=== PATIENT | male | born 1935 | race Caucasian/White ===

== ENCOUNTER → 2016-05-19 08:44 | Outpatient (CLI) | payer MEDICARE, BC ==
[2015-12-30 12:50] VITALS: BMI 21.2
[~2016-05-19 08:44] MED LIST: BENTYL 20 MG TA20 MG PO; BENZONATATE200 MG PO; BROVANA15 MCG/2 M INH; DALIRESP500 MCG PO; DEXILANT60 MG PO; FLUTICASONE PRO16 GM NASAL; IPRAT-ALBUT 0.5-3 ML UPD; KLONOPIN0.5 MG PO; LACTINEX GRANUL1 PCK PO; LASIX20 MG PO; LEVAQUIN500 MG PO; LISINOPRIL10 MG PO; LYRICA50 MG PO; MAG-OX 400 MG400 MG PO; MEDROL DOSE PACK4 MG PO; METOPROLOL TART50 MG PO; MUCINEX DM ER1 EAC1 PO; NEURONTIN 400400 MG PO; NEURONTIN800 MG PO; NEXIUM20 MG PO; NITROSTAT0.4 MG SL; NORVASC5 MG PO; PLAVIX75 MG PO; POTASSIUM CHLO10 ME1 PO; PREDNISONE20 MG PO; PRILOSEC20 MG PO; PULMICORT0.5 MG/21 UPD; SALINE NASAL SP45 ML NS; SINGULAIR10 MG PO; STERAPRED DS 1210 MG PO; SYMBICORT 16010.2 GM INH; TESSALON PERLE100 MG PO; TOPROL XL25 MG PO; TUMS500 MG PO; VENTOLIN HFA18 GM INH; VITAMIN D250000 UNIT PO; VITAMIN D5000 UNIT PO; ZYRTEC10 MG PO
== END | disposition home or self-care (01) ==
LOC: D.RT 08:44
DX: J44.9 Chronic obstructive pulmonary disease, unspecified (principal)

== ENCOUNTER → 2016-06-08 19:14 | Outpatient (CLI) | payer MEDICARE, BC ==
[2015-12-30 12:50] VITALS: BMI 21.2
[~2016-06-08 19:14] MED LIST changes: +FLORAJEN3 CAPS460 MG PO; +LEVAQUIN750 MG PO
== END | disposition home or self-care (01) ==
LOC: D.SLEEP 19:14
DX: R40.0 Somnolence (principal); G47.33 Obstructive sleep apnea (adult) (pediatric)

== ENCOUNTER → 2016-07-20 12:25 | Outpatient (CLI) | payer MEDICARE, BC ==
[2015-12-30 12:50] VITALS: BMI 21.2
== END | disposition home or self-care (01) ==
LOC: D.RAD 12:25
DX: T17.928A Food in respiratory tract, part unspecified causing other injury, initial encounter (principal)

== ENCOUNTER 2016-07-31 01:36 | Inpatient (IN) | payer MEDICARE, BC ==
[~2016-07-31] VITALS: Ht 177.8 cm; Wt 70.3 kg
[~2016-07-31 01:36] MED LIST changes: -FLORAJEN3 CAPS460 MG PO; -LEVAQUIN750 MG PO
[2016-07-31 02:39] LABS: BASOPHILS 0.1 % (0.0-2.0); EOSINOPHILS 0.2 % (0-7); HEMATOCRIT 37.2 % (42.0-54.0); HEMOGLOBIN 12.2 g/dL (13.5-17.5); IMMATURE GRANULOCYTES 0.3 % (0-5); LYMPHOCYTES 2.6 % (15-50); MCHC 32.8 g/dL (31.0-37.0); MCV 88.4 fL (80.0-100.0); MEAN PLATELET VOLUME 10.3 fL (7.4-10.4); MONOCYTES 4.4 % (2-11); NEUTROPHILS 92.4 % (40-80); PLATELET COUNT 299 10x3/uL (130-400); RBC 4.21 10x6/uL (4.20-6.10); RDW 14.9 % (11.5-14.5); WBC 14.9 10x3/uL (4.8-10.8)
[2016-07-31 02:59] LABS: ALBUMIN 2.8 g/dL (3.4-5.0); ALKALINE PHOSPHATASE 71 U/L (46-116); ALT (SGPT) 10 U/L (10-68); BILIRUBIN - TOTAL 0.25 mg/dL (0.2-1.3); CALC OSMOLALITY 277 mosm/kg (275-300); CALCIUM 9.7 mg/dL (8.5-10.1); CARBON DIOXIDE 25.5 mmol/L (21.0-32.0); CHLORIDE - SERUM 101 mmol/L (98-107); CREATININE - SERUM 1.2 mg/dL (0.6-1.3); POTASSIUM - SERUM 3.5 mmol/L (3.5-5.1); PROTEIN - SERUM 7.2 g/dL (6.4-8.2); SODIUM 136 mmol/L (136-145); UREA NITROGEN 17 mg/dL (7-18); eGFR NON AFRICAN AMERICAN 61 mL/min (90-120)
[2016-07-31 03:03] LABS: GLUCOSE 164 mg/dL (74-106)
[2016-07-31 03:07] LABS: CREATINE KINASE 52 UL (21-232); PRO BNP 477 pg/mL (0-450); TROPONIN-I < 0.017 ng/mL (0.000-0.060)
[2016-07-31 04:53] LABS: CKMB 0.9 U/L (0.0-3.6); CREATINE KINASE 55 UL (21-232); TROPONIN-I < 0.017 ng/mL (0.000-0.060)
[2016-07-31 05:28] VITALS: BP 151/69; BMI 22.2
[2016-07-31] MEDS ORDERED: DEXILANT60 MG PO (05:48)
[2016-07-31] MEDS ORDERED: LISINOPRIL10 MG PO (05:48)
--- NOTE | 2016-07-31 07:15 | NUR ---
PATIENT RECEIVED ALERT IN MID MUÑOZ POSITION WATCHING TV. RESPIRATIONS EVEN AND UNLABORED. SIDE RAILS UP X2. BED IN LOW POSITION. CALL LIGHT IN REACH.
[2016-07-31 07:53] VITALS: BP 147/75
--- NOTE | 2016-07-31 09:40 | NUR ---
ALERT IN BED. NO SIGNS OF DISTRESS NOTED. DENIES NEEDS. SIDE RAILS UP X2. BED IN LOW POSITION. CALL LIGHT IN REACH.
[2016-07-31 11:36] LABS: CKMB 1.3 U/L (0.0-3.6); CREATINE KINASE 101 UL (21-232); TROPONIN-I < 0.017 ng/mL (0.000-0.060)
--- NOTE | 2016-07-31 12:20 | NUR ---
ALERT IN BED VISITING WITH FAMILY. RESPIRATIONS EVEN AND UNLABORED. SIDE RAILS UP X2. BED IN LOW POSITION. CALL LIGHT IN REACH.
[2016-07-31 12:41] VITALS: BP 141/66
[2016-07-31 15:34] VITALS: BP 132/59
--- NOTE | 2016-07-31 15:38 | NUR ---
PATIENT ALERT IN BED WITH FAMILY PRESENT. RESPIRATIONS EVEN AND UNLABORED. SCHEDULED MEDICATION ADMINSITERED. SIDE RAILS UP X2. BED IN LOW POSITION. CALL LIGHT IN REACH. REFUSES SCD
--- NOTE | 2016-07-31 18:10 | NUR ---
SITTING UP ON SIDE OF BED ALERT VISITING WITH FAMILY. NO SIGNS OF DISTRESS NOTED. SIDE RAILS UP X2. BED IN LOW POSITION. CALL LIGHT IN REACH.
[2016-07-31 18:18] LABS: CKMB 1.9 U/L (0.0-3.6); CREATINE KINASE 153 UL (21-232)
[2016-07-31 18:19] LABS: TROPONIN-I < 0.017 ng/mL (0.000-0.060)
--- NOTE | 2016-07-31 19:41 | NUR ---
PATIENT RESTING IN BED WITH AT BEDSIDE AND DENIES NEEDS AT THIS TIME. BED IN LOWEST POSITION AND CALL LIGHT WITHIN REACH. ENCOURAGED THE PATIENT AND FAMILY TO CALL IF THEY HAVE NEEDS.
[2016-07-31 22:19] VITALS: BP 129/69
[2016-08-01 03:29] VITALS: BP 130/64
[2016-08-01 05:40] LABS: BASOPHILS 0.1 % (0.0-2.0); EOSINOPHILS 0 % (0-7); HEMATOCRIT 34.2 % (42.0-54.0); HEMOGLOBIN 11.1 g/dL (13.5-17.5); IMMATURE GRANULOCYTES 0.4 % (0-5); LYMPHOCYTES 4.9 % (15-50); MCH 28.7 pg (26.0-34.0); MCHC 32.5 g/dL (31.0-37.0); MCV 88.4 fL (80.0-100.0); MEAN PLATELET VOLUME 10.5 fL (7.4-10.4); MONOCYTES 5.6 % (2-11); PLATELET COUNT 311 10x3/uL (130-400); RBC 3.87 10x6/uL (4.20-6.10); RDW 15.3 % (11.5-14.5); WBC 16.4 10x3/uL (4.8-10.8)
[2016-08-01 06:06] LABS: CALC OSMOLALITY 280 mosm/kg (275-300); CALCIUM 9.1 mg/dL (8.5-10.1); CARBON DIOXIDE 26.2 mmol/L (21.0-32.0); CHLORIDE - SERUM 104 mmol/L (98-107); GLUCOSE 157 mg/dL (74-106); POTASSIUM - SERUM 3.8 mmol/L (3.5-5.1); SODIUM 138 mmol/L (136-145); UREA NITROGEN 18 mg/dL (7-18); eGFR NON AFRICAN AMERICAN 76 mL/min (90-120)
--- NOTE | 2016-08-01 07:00 | NUR ---
REPORT RECEIVED FROM MERCHANDISING EXECUTION MANAGER NURSE. CALL LIGHT IN REACH.
[2016-08-01 07:52] VITALS: BP 131/69
--- NOTE | 2016-08-01 09:05 | NUR ---
ASSESSMENT COMPLETED. TYLENOL PO PER C/O FUENTES ADMINISTERED WITH AM MEDS. REFUSES SCDs. PASSWORD AND EMERGENCY CONTACT INFO OBTAINED. IN ROOM. CALL LIGHT IN REACH. WILL CONTINUE WITH PLAN OF CARE.
--- NOTE | 2016-08-01 11:20 | NUR ---
NO NEEDS VOICED AT THIS TIME.
[2016-08-01 11:23] VITALS: BP 120/62
[2016-08-01 11:44] LABS: HEMOGLOBIN A1C 5.8 % (4.8-6.0)
[2016-08-01 13:13] VITALS: Ht 177.8 cm; Wt 70.3 kg
--- NOTE | 2016-08-01 13:28 | NUR ---
NOON MEDS ADMINISTERED. CALL LIGHT IN REACH.
--- NOTE | 2016-08-01 14:42 | NUR ---
QUIET IN ROOM AT PRESENT DENIES ANY NEEDS AT BEDSIDE.
--- NOTE | 2016-08-01 15:32 | NUR ---
AFTERNOON MEDS ADMINISTERED PER RAZIA PARKER.
--- NOTE | 2016-08-01 15:50 | NUR ---
Patient Name: Zuhair GOINS Admission Status: ER Accout number: [id number] Admission Date: 07-31-2016 : 1935 Admission Diagnosis: Attending: SHAILA Current LOS: 1 Anticipated DC Date: 08-04-2016 Planned Disposition: Home with Home Health Primary Insurance: MEDICARE A & B Discharge Planning Comments: CM MET WITH PATIENT AND ([facility]) REGARDING D/C NEEDS AND PLANS. PATIENT STATED HE LIVES WITH HIS AND THERE IS ONE STEP TO ENTER HOME AND NO STAIRS INSIDE. PATIENT HAS HELP WITH HIS BATH, DRESSING, AND MEDS. PATIENT HAS A CANE, WALKER, OXYGEN 3L, PORTABLE O2, AND NEBULIZER AT HOME. PATIENTS PCP IS DR. POOLE AND PHARMACY IS [facility] [place]. PATIENT CHOSE [facility] AND SIGNED THE NAKIA FORM. CM WILL CONTINUE TO FOLLOW PATIENT WITH D/C NEEDS AND PLANS. PCP DR[facility] [place] () [phone] Houseman: Stefanie Shanks Is the patient Alert and Oriented? Yes 0 * How many steps to enter\exit or inside your home? 1 0 * PCP DR. POOLE 0 * [facility]acy [facility] [place] 0 * Preadmission Environment Home with Family 0 * ADLs Partial Dependent 0 * Partial ADLs (Assistance needed) Bathing Dressing Medication Management 0 * Equipment Cane Nebulizer Oxygen Shower Chair Walker 0 * Other Equipment PORTABLE 02 (LINCARE) 0 * List name and contact numbers for known caregivers / representatives who currently or will assist patient after discharge: [facility] [phone] 0 * Community resources currently utilized None 0 * Additional services required to return to the preadmission environment? Yes 0 * Can the patient safely return to the preadmission environment? Yes 0 * Has this patient been hospitalized within the prior 30 days at any hospital? No 0 Grand Total: 0
--- NOTE | 2016-08-01 16:10 | NUR ---
SPOKE WITH ER SENIOR ADMINISTRATIVE ASSISTANT ABOUT PATIENT NOT BEING ABLE TO FIND HIS CANE. AFTER SPEAKING WITH THEM. PATIENT STATES THAT IT MIGHT WAS LEFT HOME.
[2016-08-01 16:17] VITALS: BP 102/50
--- NOTE | 2016-08-01 18:03 | NUR ---
NO CHANGES IN INITIAL ASSESSMENT. STILL REFUSES SCDs. IN ROOM. CALL LIGHT IN REACH. WILL CONTINUE WITH PLAN OF CARE.
[2016-08-01 19:00] VITALS: BP 119/58
--- NOTE | 2016-08-01 20:00 | NUR ---
ASSESSMENT PER FLOWSHEET. IV PATENT LEFT FOREARM WITH NS AT 100CC'S/HR. SITE CLEAR. O2 ON 3L/M PER NC. SITTING UPRIGHT IN BED. AT BEDSIDE. BILAT. EXSPIRATORY WHEEZES NOTED UPPER LOBES AND DIMINISHED IN LOWER LOBES. RESFUSES SCDS.
--- NOTE | 2016-08-01 21:35 | NUR ---
MEDS GIVEN PER MAR. DENIES PAIN OR DISCOMFORT.
[2016-08-02] VITALS: BP 112/65
[2016-08-02 04:00] VITALS: BP 112/68
[2016-08-02 05:53] LABS: BASOPHILS 0.1 % (0.0-2.0); EOSINOPHILS 0.5 % (0-7); HEMATOCRIT 32.5 % (42.0-54.0); IMMATURE GRANULOCYTES 0.8 % (0-5); LYMPHOCYTES 12.9 % (15-50); MCH 30.6 pg (26.0-34.0); MCHC 33.8 g/dL (31.0-37.0); MCV 90.3 fL (80.0-100.0); MEAN PLATELET VOLUME 10.1 fL (7.4-10.4); MONOCYTES 8.2 % (2-11); NEUTROPHILS 77.5 % (40-80); PLATELET COUNT 316 10x3/uL (130-400); RDW 15.8 % (11.5-14.5)
[2016-08-02 06:20] LABS: ALBUMIN 2.2 g/dL (3.4-5.0); ALKALINE PHOSPHATASE 50 U/L (46-116); ALT (SGPT) 14 U/L (10-68); CALC OSMOLALITY 279 mosm/kg (275-300); CALCIUM 8.7 mg/dL (8.5-10.1); CARBON DIOXIDE 26.5 mmol/L (21.0-32.0); CHLORIDE - SERUM 108 mmol/L (98-107); POTASSIUM - SERUM 4.1 mmol/L (3.5-5.1); PROTEIN - SERUM 5.6 g/dL (6.4-8.2); SODIUM 139 mmol/L (136-145); UREA NITROGEN 17 mg/dL (7-18); WBC 9.9 10x3/uL (4.8-10.8); eGFR NON AFRICAN AMERICAN 76 mL/min (90-120)
[2016-08-02 06:23] LABS: GLUCOSE 106 mg/dL (74-106)
--- NOTE | 2016-08-02 07:15 | NUR ---
SLEEPING QUIETLY AT PRESENT RESP EVEN AND UNLABORED AT PRESENT DENIES ANY NEEDS AT PRESENT 02 CONT AT 3L N/C AT PRESENT.
[2016-08-02 08:37] VITALS: BP 119/62
--- NOTE | 2016-08-02 09:15 | NUR ---
UP AT SINK SHAVING WITH CARLOS WELL AT PRESENT.
--- NOTE | 2016-08-02 10:00 | NUR ---
UP AND ABOUT IN ROOM AT PRESENT DENIES ANY NEEDS AT THIS TIME CONT AT BEDSIDE.
--- NOTE | 2016-08-02 12:19 | NUR ---
QUIET IN ROOM AT PRESENT 02 CONT AT 2L N/C AT PRESENT SLIGHT WHEEZE NOTED AT PRESENT.
[2016-08-02 12:24] VITALS: BP 119/60
--- NOTE | 2016-08-02 13:00 | NUR ---
AMB IN HALLWAY WITH PT CARLOS WELL AT PRESENT.
--- NOTE | 2016-08-02 15:00 | NUR ---
TAKING LIQS WELL AND RET AT PRESENT N/C VOICED AT PRESENT 02 CONT AT 2L N/C AT PRESENT.
[2016-08-02 16:26] VITALS: BP 123/61
--- NOTE | 2016-08-02 16:59 | NUR ---
WATCHING TV QUIETLY AT PRESENT.
[2016-08-02 20:00] VITALS: BP 121/58
--- NOTE | 2016-08-02 20:00 | NUR ---
ASSESSMENT PER FLOWSHEET. SITTING UPRIGHT IN BED RECEIVING BEDSIDE UPDRAFT TX. O2 ON 3L/M PER NC. BILATERAL INSPIRATORY/EXSPIRATORY WHEEZES. NO DISTRESS. AT BEDSIDE. IV PATENT LEFT FOREARM NS AT 100CC'S/HR.
--- NOTE | 2016-08-02 22:00 | NUR ---
MEDS GIVEN PER MAR.
[2016-08-03] VITALS: BP 120/66
--- NOTE | 2016-08-03 01:18 | NUR ---
EYES CLOSED RESPIRATIONS WITH EASE AND UNLABORED.
--- NOTE | 2016-08-03 03:45 | NUR ---
C/O HEADACHE PAIN TYLENOL 650MG PO GIVEN FOR PAIN CONTROL.
[2016-08-03 04:00] VITALS: BP 132/67
[2016-08-03 06:08] LABS: BASOPHILS 0.1 % (0.0-2.0); EOSINOPHILS 1.5 % (0-7); HEMATOCRIT 34.1 % (42.0-54.0); HEMOGLOBIN 10.8 g/dL (13.5-17.5); IMMATURE GRANULOCYTES 0.8 % (0-5); LYMPHOCYTES 11.7 % (15-50); MCH 28.6 pg (26.0-34.0); MCHC 31.7 g/dL (31.0-37.0); MCV 90.5 fL (80.0-100.0); MEAN PLATELET VOLUME 9.7 fL (7.4-10.4); MONOCYTES 9.4 % (2-11); NEUTROPHILS 76.5 % (40-80); PLATELET COUNT 346 10x3/uL (130-400); RBC 3.77 10x6/uL (4.20-6.10); RDW 15.7 % (11.5-14.5); WBC 9.8 10x3/uL (4.8-10.8)
[2016-08-03 06:44] LABS: ALBUMIN 2.4 g/dL (3.4-5.0); ALKALINE PHOSPHATASE 55 U/L (46-116); ALT (SGPT) 13 U/L (10-68); BILIRUBIN - TOTAL 0.14 mg/dL (0.2-1.3); CALC OSMOLALITY 282 mosm/kg (275-300); CALCIUM 8.7 mg/dL (8.5-10.1); CHLORIDE - SERUM 109 mmol/L (98-107); CREATININE - SERUM 0.9 mg/dL (0.6-1.3); GLUCOSE 95 mg/dL (74-106); PROTEIN - SERUM 5.9 g/dL (6.4-8.2); SODIUM 142 mmol/L (136-145); eGFR NON AFRICAN AMERICAN 86 mL/min (90-120)
[2016-08-03 06:52] LABS: UREA NITROGEN 12 mg/dL (7-18)
--- NOTE | 2016-08-03 07:15 | NUR ---
REPORT RECEIVED FROM ZONING ENGINEER NURSE. CALL LIGHT IN REACH.
--- NOTE | 2016-08-03 08:15 | NUR ---
ASSESSMENT COMPLETED. REFUSES SCDs. CALL LIGHT IN REACH. WILL CONTINUE WITH PLAN OF CARE.
[2016-08-03 08:29] VITALS: BP 137/68
--- NOTE | 2016-08-03 10:56 | NUR ---
AM MEDS ADMINISTERED. CALL LIGHT IN REACH.
--- NOTE | 2016-08-03 11:00 | NUR ---
AMBULATING IN HALLWAY WITH PHYSICAL THERAPY. PT TO D/C HOME TODAY. AT BEDSIDE AWAITING D/C PAPERWORK AND PT TO COMPLETE AMBUALATING. WEARING OXYGEN ON 3L VIA NC. RESPIRATIONS EVEN AND NON LABORED WITH AMBULATION. WEARS HOME O2. DENIES QUESTIONS OR CONCERNS. CALL LIGHT IN REACH, WILL CONTINUE WITH PLAN OF CARE.
[2016-08-03] MEDS ORDERED: FLORAJEN3 CAPS460 MG PO (11:10)
[2016-08-03] MEDS ORDERED: LEVAQUIN750 MG PO (11:11)
--- NOTE | 2016-08-03 13:20 | NUR ---
IV DC'D WITH TIP INTACT PER STUDENT NURSE.
--- NOTE | 2016-08-03 15:00 | NUR ---
C'D TO VEHICLE VIA WC AND FRIEND.
--- NOTE | 2016-08-03 15:03 | NUR ---
CM REASSESSMENT NOTE: PATIENT IS DISCHARGING HOME TODAY- AT BEDSIDE. PATIENTS FAMILY IS DRIVING HIM HOME. PATIENT CHOSE [facility] AND THEY HAVE BEEN NOTIFIED OF DISCHARGE.
== END 2016-08-03 15:00 | disposition home health service (06) | DRG 190 ==
LOC: D.ER 01:36 → D.MS 04:48
PROVIDERS: Family Medicine; Surgery; ADMIT Family Medicine
DX: J44.0 Chronic obstructive pulmonary disease with (acute) lower respiratory infection (principal); J18.1 Lobar pneumonia, unspecified organism; A69.20 Lyme disease, unspecified; J44.1 Chronic obstructive pulmonary disease with (acute) exacerbation; J45.909 Unspecified asthma, uncomplicated; I10 Essential (primary) hypertension; I25.10 Atherosclerotic heart disease of native coronary artery without angina pectoris; I73.9 Peripheral vascular disease, unspecified; G62.9 Polyneuropathy, unspecified; R53.1 Weakness; Z99.81 Dependence on supplemental oxygen; K21.9 Gastro-esophageal reflux disease without esophagitis

== ENCOUNTER 2016-11-13 21:42 | Inpatient (IN) | payer MEDICARE, BC ==
[~2016-11-13] VITALS: Ht 177.8 cm; Wt 60.1 kg
[~2016-11-13 21:42] MED LIST changes: +FLORAJEN3 CAPS460 MG PO; +LEVAQUIN750 MG PO
[2016-11-13 22:41] LABS: BASOPHILS 0 % (0-2); EOSINOPHILS 0 % (0-7); HEMATOCRIT 41.1 % (42.0-54.0); HEMOGLOBIN 13.4 g/dL (13.5-17.5); IMMATURE GRANULOCYTES 0.2 % (0-5); LYMPHOCYTES 5.3 % (15-50); MCHC 32.6 g/dL (31.0-37.0); MCV 91.9 fL (80.0-100.0); MEAN PLATELET VOLUME 10.4 fL (7.4-10.4); MONOCYTES 5.1 % (2-11); NEUTROPHILS 89.4 % (40-80); PLATELET COUNT 282 10x3/uL (130-400); RBC 4.47 10x6/uL (4.20-6.10); RDW 14.5 % (11.5-14.5); WBC 9.6 10x3/uL (4.8-10.8)
[2016-11-13 22:55] LABS: ALBUMIN 3.2 g/dL (3.4-5.0); ALKALINE PHOSPHATASE 59 U/L (46-116); ALT (SGPT) 15 U/L (10-68); BILIRUBIN - TOTAL 0.29 mg/dL (0.2-1.3); CALC OSMOLALITY 286 mosm/kg (275-300); CALCIUM 10.5 mg/dL (8.5-10.1); CARBON DIOXIDE 36.3 mmol/L (21.0-32.0); CHLORIDE - SERUM 101 mmol/L (98-107); CREATININE - SERUM 1.2 mg/dL (0.6-1.3); GLUCOSE 128 mg/dL (74-106); POTASSIUM - SERUM 3.3 mmol/L (3.5-5.1); PROTEIN - SERUM 6.7 g/dL (6.4-8.2); SODIUM 142 mmol/L (136-145); UREA NITROGEN 17 mg/dL (7-18); eGFR NON AFRICAN AMERICAN 61 mL/min (90-120)
[2016-11-13 23:06] LABS: CREATINE KINASE 44 UL (21-232); PRO BNP 1008 pg/mL (0-450)
[2016-11-13 23:07] LABS: TROPONIN-I < 0.017 ng/mL (0.000-0.060)
[2016-11-14] MEDS ORDERED: FUROSEMIDE20 MG PO (01:07)
[2016-11-14] MEDS ORDERED: KLOR-CON 1010 MEQ PO (01:14)
[2016-11-14 01:27] LABS: CKMB 1.7 U/L (0.0-3.6); CREATINE KINASE 46 UL (21-232)
[2016-11-14 01:29] LABS: TROPONIN-I < 0.017 ng/mL (0.000-0.060)
[2016-11-14 02:16] VITALS: BP 195/90; BMI 19.5
[2016-11-14 04:00] VITALS: BP 178/90
[2016-11-14 05:57] LABS: CKMB 1.6 U/L (0.0-3.6); CREATINE KINASE 37 UL (21-232)
[2016-11-14 06:01] LABS: TROPONIN-I < 0.017 ng/mL (0.000-0.060)
--- NOTE | 2016-11-14 07:00 | NUR ---
PT REC'D FROM JUNIOR PEREZ. SITTING UP IN BED HAVING BREAKFAST. AAOX4. NO COMPLAINTS OF PAIN. BILAT EXPIRATORY WHEEZES TO ALL LOBES OF LUNGS. DIMINISHED TO LOWER LOBES WELL. REGULAR HEART RATE WITH MURMUR NOTED. BOWEL SOUNDS ACTIVE X4 QUADRANTS. PIV TO R AC FREE OF REDNESS AND SWELLING. BED LOW, CALL LIGHT IN REACH, DENIES NEEDS. CPOC.
[2016-11-14 10:12] LABS: BASOPHILS 0 % (0-2); EOSINOPHILS 0 % (0-7); HEMATOCRIT 41.1 % (42.0-54.0); HEMOGLOBIN 13.3 g/dL (13.5-17.5); IMMATURE GRANULOCYTES 0.3 % (0-5); LYMPHOCYTES 4.2 % (15-50); MCH 29.8 pg (26.0-34.0); MCHC 32.4 g/dL (31.0-37.0); MCV 92.2 fL (80.0-100.0); MEAN PLATELET VOLUME 10.9 fL (7.4-10.4); NEUTROPHILS 94.5 % (40-80); PLATELET COUNT 300 10x3/uL (130-400); RBC 4.46 10x6/uL (4.20-6.10); RDW 14.4 % (11.5-14.5); WBC 9.3 10x3/uL (4.8-10.8)
[2016-11-14 10:16] VITALS: BP 154/74
[2016-11-14 12:09] VITALS: BP 154/76
[2016-11-14 13:05] LABS: CKMB 1.2 U/L (0.0-3.6); CREATINE KINASE 42 UL (21-232)
[2016-11-14 13:10] LABS: TROPONIN-I < 0.017 ng/mL (0.000-0.060)
--- NOTE | 2016-11-14 15:22 | NUR ---
AT BEDSIDE.PT WITHOUT DISTRESS.DENIES NEEDS.CALL LIGHT IN REACH
[2016-11-14 15:37] VITALS: Ht 177.8 cm; Wt 60.1 kg
[2016-11-14 15:57] VITALS: BP 154/70
[2016-11-14 19:00] VITALS: BP 141/76
--- NOTE | 2016-11-14 21:51 | NUR ---
PT SEEN EARILER THIS SHIFT. NO COMPLAINTS OF PAIN OR SOB. LUNG SOUNDS DIMINISHED BILAT ALL LOBES. OXYGEN AT 2LNC. NO PEDAL EDEMA NOTED. USES URINAL FREQ DUE TO LASIX. CALL LIGHT IN REACH. BED ALARM FOR SAFETY.
[2016-11-15] VITALS: BP 159/80
[2016-11-15 04:00] VITALS: BP 159/78
[2016-11-15 05:59] LABS: POTASSIUM - SERUM 3.7 mmol/L (3.5-5.1)
--- NOTE | 2016-11-15 06:04 | NUR ---
PT HAS USED URINAL SEVERAL TIMES THIS SHIFT. STATES SOB IS BETTER AND NO COUGH NOTED. CALL LIGHT IN REACH
--- NOTE | 2016-11-15 07:00 | NUR ---
PT REC'D FROM RAZIA MARY. SITTING UP IN BED WITH BREAKFAST TRAY AT BEDSIDE. AAOX4. NO COMPLAINTS OF PAIN. LUNG SOUNDS CLEAR AND EQUAL BILAT. NO SWELLING NOTED TO BLE. REGULAR HEART RATE AND RHYTHM. TELEMETRY ON. PIV TO R AC SALINE LOCKED FREE OF REDNESS AND SWELLING. BED LOW, CALL LIGHT IN REACH, DENIES NEEDS. CPOC.
[2016-11-15 08:24] VITALS: BP 165/80
--- NOTE | 2016-11-15 09:20 | NUR ---
MORNING MEDS PASSED AT THIS TIME. TOLERATED WELL. FRESH CUP OF WATER PROVIDED. BED LOW, CALL LIGHT IN REACH, DENIES NEEDS. CPOC.
[2016-11-15 10:06] LABS: BASOPHILS 0 % (0-2); EOSINOPHILS 0 % (0-7); HEMATOCRIT 41.8 % (42.0-54.0); HEMOGLOBIN 13.5 g/dL (13.5-17.5); IMMATURE GRANULOCYTES 0.3 % (0-5); LYMPHOCYTES 2.8 % (15-50); MCH 29.7 pg (26.0-34.0); MCHC 32.3 g/dL (31.0-37.0); MCV 91.9 fL (80.0-100.0); MEAN PLATELET VOLUME 10.7 fL (7.4-10.4); MONOCYTES 2.3 % (2-11); NEUTROPHILS 94.6 % (40-80); PLATELET COUNT 328 10x3/uL (130-400); RBC 4.55 10x6/uL (4.20-6.10); RDW 14.3 % (11.5-14.5)
[2016-11-15 10:17] LABS: ALBUMIN 3.2 g/dL (3.4-5.0); ANION GAP 10.5 mmol/L (8-16); BILIRUBIN - TOTAL 0.2 mg/dL (0.2-1.3); CALCIUM 9.8 mg/dL (8.5-10.1); CARBON DIOXIDE 35.2 mmol/L (21.0-32.0); CREATININE - SERUM 1.5 mg/dL (0.6-1.3); PROTEIN - SERUM 6.7 g/dL (6.4-8.2)
[2016-11-15 10:37] LABS: WBC 11.9 10x3/uL (4.8-10.8)
--- NOTE | 2016-11-15 11:30 | NUR ---
RESTING QUIETLY WITH EES CLOSED RESP DEEP EVEN UNLABORED.
--- NOTE | 2016-11-15 12:05 | NUR ---
IV ABX HUNG AT THIS TIME PER JUN. PIV TO R AC FLUSHED AND PATENT. WILL SALINE LOCK AFTER INFUSION COMPLETE.
[2016-11-15 12:40] VITALS: BP 160/80
--- NOTE | 2016-11-15 14:41 | NUR ---
Patient Name: Zuhair GOINS Admission Status: ER Accout number: [id number] Admission Date: 11-13-2016 : 1935 Admission Diagnosis:CHRONIC OBSTRUCTIVE PULMONARY DISEASE W (ACUTE) EXACERB Attending: JH Current LOS: 2 Anticipated DC Date: 11-16-2016 Planned Disposition: Home Primary Insurance: MEDICARE A & B Discharge Planning Comments: CM MET WITH PATIENT REGARDING D/C NEEDS AND PLANS. PATIENT STATED HE LIVES WITH HIS (D[facility]TE) AND FAMILY WILL DRIVE HIM HOME AT DISCHARGE. PATIENT STATED HE HAS NO STEPS OR STAIRS AT HIS HOME. PATIENT STATED HE IS INDEPENDENT WITH HIS CARE AND HAS A WALKER, WHEELCHAIR, SHOWER CHAIR, CANE, NEBULIZER, PORT O2, AND OXYGEN (3.5L) AT HOME. PATIENTS PCP IS DR. POOLE AND PHARMACY IS [facility] AT [place]. PATIENT STATED HE DOES NOT WANT HOME HEALTH AND THAT HE HAS HOUSE CALLS. CM WILL CONTINUE TO FOLLOW PATIENT WITH D/C NEEDS AND PLANS. PCP [facility]- [phone] [place] () [phone] Letter Stamping Machine Operator: Stefanie Shanks Is the patient Alert and Oriented? Yes 0 * How many steps to enter\exit or inside your home? 0 0 * PCP DR. POOLE 0 * Pharmacy [facility] 0 * Preadmission Environment Home with Family 0 * ADLs Independent 0 * Equipment Cane Nebulizer Oxygen Shower Chair Walker Wheelchair 0 * List name and contact numbers for known caregivers / representatives who currently or will assist patient after discharge: [facility] () [phone] 0 * Community resources currently utilized Other 0 * Please name any agencies selected above. HOUSE CALLS 0 * Additional services required to return to the preadmission environment? Yes 0 * Can the patient safely return to the preadmission environment? Yes 0 * Has this patient been hospitalized within the prior 30 days at any hospital? No 0 Grand Total: 0
--- NOTE | 2016-11-15 15:00 | NUR ---
PT RESTING IN BED ON TELEPHONE. NO SIGNS OF DISTRESS. BED LOW, CALL LIGHT IN REACH, DENIES NEEDS. CPOC.
[2016-11-15 16:39] VITALS: BP 166/81
[2016-11-15 19:00] VITALS: BP 115/79
--- NOTE | 2016-11-15 19:06 | NUR ---
Received patient sitting up at edge of bed in room, denies pain or discomfort at this time. Has oxygen on @ 3L/min and has PIV #20 in right AC that is SL. Alert and oriented x 4, has urinal at bedside. No voiced complaints.
--- NOTE | 2016-11-15 22:30 | NUR ---
Continues to be in no distress, states he gets SOB at times when gets up to the BR. Denies pain. Has been complaint with medications. monitor tech on, SR with HR 90/min.
--- NOTE | 2016-11-16 03:35 | NUR ---
Patient is resting quietly in bed, eyes closed, deemed to be sleeping.
[2016-11-16 04:00] VITALS: BP 143/81
--- NOTE | 2016-11-16 07:00 | NUR ---
PT REC'D FROM RAZIA WARNER. SITTING UP AT BEDSIDE. AAOX4. NO COMPLAINTS OF PAIN. LUNG SOUNDS CLEAR AND EQUAL BILAT. NO SWELLING NOTED TO BLE. +2 PEDAL PULSES BILAT. PIV TO R AC FREE OF REDNESS AND SWELLING. BED LOW, CALL LIGHT IN REACH, DENIES NEEDS. CPOC.
[2016-11-16 08:21] VITALS: BP 152/78
--- NOTE | 2016-11-16 09:40 | NUR ---
MORNING MEDS PASSED AT THIS TIME. TOLERATED WELL. FRESH CUP OF WATER PROVIDED. BED LOW, CALL LIGHT IN REACH, DENIES NEEDS. CPOC.
--- NOTE | 2016-11-16 12:45 | NUR ---
DR. POOLE AT BEDSIDE DISCUSSING DISCHARGE. IV ABX HUNG PER MAR AND OTHER MEDS ADMINISTERED PER MAR AT THIS TIME. EXPLAINED TO PT THAT ONCE ABX WAS FINISHED WE WOULD UNHOOK HIS IV AND DC IT. ALSO TOLD HIM TO GO AHEAD AND CALL HIS FAMILY TO PICK HIM UP. NO QUESTIONS OR CONCERNS VOICED AT THIS TIME. BED LOW, CALL LIGHT IN REACH, DENIES NEEDS. CPOC.
[2016-11-16] MEDS ORDERED: FLORAJEN3 CAPS460 MG PO (13:20)
[2016-11-16] MEDS ORDERED: PREDNISONE10 MG PO (13:21)
[2016-11-16] MEDS ORDERED: LEVAQUIN500 MG PO (13:21)
--- NOTE | 2016-11-16 14:31 | NUR ---
PT SITTING UP TO SIDE OF BED WITH NO COMPLAINTS OF PAIN OR DISCOMFORT AT THIS TIME. PT AWAITING DISCHARGE. BED IN LOW POSITION AND CALL LIGHT WITHIN REACH. WILL CONTINUE TO MONITOR.
--- NOTE | 2016-11-16 14:46 | NUR ---
NUTRITION MONITORING & EVAL CHART REVIEWED. TOLERATING REG DIET. 75% INTAKE RECENT MEALS. WILL CONTINUE TO PROVIDE DIET, MONITOR INTAKE. RD FOLLOWING
--- NOTE | 2016-11-16 15:04 | NUR ---
CM REASSESSMENT NOTE: PATIENT IS DISCHARGING HOME TODAY/FAMILY DRIVING HIM. PATIENT REFUSED HOME HEALTH AND STATED WE DONT NEED THEM. PATIENT STATED HE HAS HOUSE CALLS AND THATS ALL HE NEEDS.
--- NOTE | 2016-11-16 15:37 | NUR ---
DC INSTRUCTIONS DISCUSSED AT THIS TIME. NO QUESTIONS OR CONCERNS VOICED. PIV TO R AC DC'D WITH CATHETER INTACT. EXPLAINED TO PT THAT PRESCRIPTIONS HAD BEEN CALLED IN AND THAT ALL HE WOULD HAVE TO DO IS PICK THEM UP AT HIS PHARMACY. ESCORTED OUT VIA WC.
== END 2016-11-16 15:42 | disposition home or self-care (01) | DRG 190 ==
LOC: D.ER 21:42 → EDBD 21:42 → D.MS 23:52
PROVIDERS: Family Medicine; ADMIT Emergency Medicine
DX: J44.0 Chronic obstructive pulmonary disease with (acute) lower respiratory infection (principal); J18.1 Lobar pneumonia, unspecified organism; F17.203 Nicotine dependence unspecified, with withdrawal; K92.2 Gastrointestinal hemorrhage, unspecified; I50.32 Chronic diastolic (congestive) heart failure; J44.1 Chronic obstructive pulmonary disease with (acute) exacerbation; K21.9 Gastro-esophageal reflux disease without esophagitis; G62.9 Polyneuropathy, unspecified; I25.10 Atherosclerotic heart disease of native coronary artery without angina pectoris; I65.23 Occlusion and stenosis of bilateral carotid arteries; D64.9 Anemia, unspecified; I11.0 Hypertensive heart disease with heart failure

== ENCOUNTER → 2017-03-08 08:50 | Outpatient (CLI) | payer MEDICARE, BC ==
[2016-11-14 15:37] VITALS: BMI 19.5
[~2017-03-08 08:50] MED LIST changes: +FUROSEMIDE20 MG PO; +KLOR-CON 1010 MEQ PO; +PREDNISONE10 MG PO
== END | disposition home or self-care (01) ==
LOC: D.RT 08:50
DX: J44.9 Chronic obstructive pulmonary disease, unspecified (principal)

== ENCOUNTER 2017-07-14 22:07 | Emergency (ER) | payer MEDICARE, BC ==
[2016-11-14 15:37] VITALS: BMI 19.5
== END 2017-07-15 06:06 | disposition home or self-care (01) ==
LOC: D.ER 22:07
DX: J44.1 Chronic obstructive pulmonary disease with (acute) exacerbation (principal); F17.200 Nicotine dependence, unspecified, uncomplicated; I10 Essential (primary) hypertension

== ENCOUNTER → 2017-08-31 12:16 | Outpatient (CLI) | payer MEDICARE, BC ==
[2016-11-14 15:37] VITALS: BMI 19.5
[~2017-08-31 12:16] MED LIST changes: +BUSPAR10 MG PO; +PENTOXIFYLLINE400 MG PO; +PRAVACHOL20 MG PO
== END | disposition home or self-care (01) ==
LOC: D.CT 12:16
DX: I73.9 Peripheral vascular disease, unspecified (principal)

== ENCOUNTER 2017-09-15 07:15 | Outpatient (CLI) | payer MEDICARE, BC ==
[~2017-09-15] VITALS: Ht 177.8 cm; Wt 60.9 kg
--- NOTE | ~2017-09-15 | HEMODYNAMI ---
PATIENT:Zuhair GOINS JR MEDICAL RECORD: [id number] : 33 LOCATION:[facility] ADMISSION DATE: 09/15/17 Generatedon:09/15/201712:25 Patient name: Zuhair GOINS Patient #: [id number] SSN: : 1935 Date of study: 09/15/2017 Page: Of Hemodynamic Procedure Report Patient Data Patient Demographics Procedure consent was obtained First Name: Zuhair Gender: Male Last Name: BUSTER Suffix: [facility] Initial: Dex : 1935 Patient #: [id number] Age: 82 year(s) Race: Additional ID: [id number] Contact details Address: [place] [place] [address] State: [place] City: [place] Zip code: [address] Past Medical History Allergies Allergen Reaction Date Comments Reported Adhesive tape 08/06/2015 Other allergy 08/06/2015 Amitryptyline, amlodipine, doxycycline Admission Admission Data Admission Date: 09/15/2017 Admission Time: 7:15 Procedure Procedure Types Cath Procedure Peripheral Cath Diagnostic Procedure Cath Peripheral Abd/Extremity Extremities Bilat Lower Extremity Procedure Description Procedure Date Procedure Date: 09/15/2017 Procedure Start Time: 11:27 Procedure Staff Name Function Demetra Schuster RT Sewing Machine Operator Semiautomatic Demetra Schuster RT Monitor Yanick Talley RT Scrub Brad Rothman MD Performing Physician Mary Roland RN Nurse Pooja Mckeon RN Nurse Procedure Data Cath Procedure Fluoroscopy Diagnostic fluoroscopy Total fluoroscopy Time: 4.7 time: 4.7 min min Diagnostic fluoroscopy Total fluoroscopy dose: 272 dose: 272 mGy mGy Contrast Material Contrast Material Type Amount (ml) Isovue 300 95 Entry Location Entry Primary Successful Side Size Upsize Upsize Entry Closure Succes sful Closure Location (Fr) 1 (Fr) 2 (Fr) Remarks Device Remarks Femoral Left Exoseal artery Procedure Medications Medication Administration Route Dosage Albuterol Updraft Oxygen etCO2 Nasal cannula 4 l/min Heparin Flush Bag added to field 3 bags (1000units/500ml NS) Lidocaine 1% added to field 20 Fentanyl 50 mcg Versed I.V. 1 mg Fentanyl 50 mcg Versed I.V. 1 mg Hemodynamics Rest Heart Rate: 71 (bpm) Snapshots Pre Cath Intra NCS Post Cath Vital Signs Time Heart Resp SPO2 etCO2 NIBP (mmHg) Rhythm Pain Sedation Rate (ipm) (%) (mmHg) Status Level (bpm) 11:10:32 72 16 100 36.6 169/89(122) NSR 0 (11) 10(A) , No pain 11:14:52 71 16 100 32.8 175/86(118) NSR 0 (11) 10(A) , No pain 11:19:14 71 15 36.6 172/89(123) NSR 0 (11) 10(A) , No pain 11:23:36 71 16 99 35.8 171/80(113) NSR 0 (11) 10(A) , No pain 11:27:54 72 20 100 22.4 175/91(109) NSR 0 (11) 10(A) , No pain 11:32:12 69 14 100 11.9 165/88(117) NSR 0 (11) 8(A) , No pain 11:36:36 71 11 100 22.4 141/68(124) NSR 0 (11) 8(A) , No pain 11:41:35 71 12 100 44.8 Measuring NSR 0 (11) 8(A) , No pain 11:41:50 70 13 100 40.3 160/81(127) NSR 0 (11) 8(A) , No pain 11:46:08 69 12 100 1.4 160/82(113) NSR 0 (11) 8(A) , No pain 11:50:28 69 13 100 18.6 155/74(114) NSR 0 (11) 8(A) , No pain 11:54:46 70 13 100 41.9 157/79(110) NSR 0 (11) 8(A) , No pain 11:59:06 70 10 100 0 155/72(105) NSR 0 (11) 8(A) , No pain 12:03:26 69 13 98 46.3 145/72(105) NSR 0 (11) 8(A) , No pain Medications Time Medication Route Dose Verified Delivered Reason Notes Effec tiveness by by 11:16:07 Albuterol duoneb Brad Patton for low Updraft Mike Rothman RN 02 sats 11:17:59 Oxygen etCO2 4 Brad Patton Per Nasal l/min Mike Rothman RN protocol cannula 11:18:21 Heparin Flush added 3 Brad Salinas Per Bag to bags Lorna Rothman MD protocol (1000units/500ml field PRATER NS) 11:18:44 Lidocaine 1% added 20ml Brad Salinas Per to vial Lorna Rothman MD protocol field PRATER 11:30:35 Fentanyl 50 Brad Musaody for mcg Luan Rothman RN sedation 11:30:45 Versed I.V. 1 mg Brad Hernandez for Luan Rothman RN sedation 11:56:39 Fentanyl 50 Brad Musaody for mcg Luan Rothman RN sedation 11:56:47 Versed I.V. 1 mg Brad Hernandez for Luan Rothman RN sedation Procedure Log Time Note 10:14:10 Use device set IR Diagnostic 10:38:51 Time tracking: Regular hours (M-F 7:00 - 5:00) 10:39:02 Plan of Care:Hemodynamics will remain stable., Cardiac rhythm will remain stable., Comfort level will be maintained., Respiratory function will remain adequate., Patient/ family verbilizes understanding of procedure., Procedure tolerated without complication., Recovers from procedure without complications.. 10:39:11 Patient received from Outpatients to IR Alert and oriented. Tansferred to table in Supine position. 10:39:23 Signed procedure consent form obtained from patient. 10:39:50 H&P Date Dictated: 09/15/2017 Within 30 days and on chart.. 10:39:53 - 10:51:13 Pre-op teaching completed and patient verbalized understanding. 10:51:13 Pre-procedure instructions explained to patient. 10:51:17 Family in waiting room. 10:51:21 Patient NPO since Midnight. 10:52:35 ALLERGIES:::: DOXYCYCLINE, AMLODIPINE, AMITRIPTYLINE 10:52:47 Is the patient allergic to Iodine/contrast media? No. 10:53:09 Patient diabetic? No. 10:53:12 - 10:53:14 ----Pre-sedation anethsthesia assessment.---- 10:53:41 Previous problem with sedation/anesthesia? No ? 10:53:48 Snore? Yes 10:53:52 Sleep apnea? No 10:53:55 Deviated septum? No 10:53:59 Opens mouth fully? Yes 10:54:01 Sticks out tongue? Yes 10:54:09 Airway obstruction? Yes COPD 10:54:27 Dentures? Yes IN SECURELY 10:54:37 Pre procedure: right dorsailis pedis pulse Doppler 10:54:42 Pre procedure: left dorsailis pedis pulse Doppler 10:54:46 Pre procedure: right posterior tibial pulse Doppler 10:54:53 Pre procedure: left posterior tibial pulse Doppler 10:55:43 IV patent on arrival in left wrist with D5/.45%NaCl at KVO. 10:56:54 Left groin area was prepped with chlora-prep and draped in sterile fashion 10:59:32 - 10:59:34 Micropuncture VSI 4FR kit opened to sterile field. 10:59:35 CHOICE PT Extra Support J 300cm guide wire ([id number]) opened to steril e field. 10:59:36 DOC .035 wire (K21395) opened to sterile field. 10:59:37 MCGRATH 260 wire (F07701) opened to sterile field. 10:59:38 SHEATH 5FR [place] (TZP407) opened to sterile field. 10:59:40 Angiodynamics Omniflush 5Fr 65cm ([id number]) opened to sterile field. 10:59:41 Tegaderm 4 x 4 (1626W) opened to sterile field. 10:59:42 Sterile Angiographic Pack opened to sterile field. 10:59:43 Bag Decanter (2002) opened to sterile field. 10:59:45 ACIST Manifold (72361) opened to sterile field. 10:59:46 ACIST Hand Control (76165) opened to sterile field. 10:59:47 ACIST Syringe (76148) opened to sterile field. 10:59:49 - 11:09:19 ECG and BP/O2 sat monitors applied to patient. 11:09:21 Vital chart was started 11::23 Baseline sample Acquired. 11::28 Full Disclosure recording started 11::30 - 11:16:07 Albuterol Updraft duoneb was administered by Pooja Mckeon RN; for low 02 sats; 11:17:59 Oxygen 4 l/min etCO2 Nasal cannula was administered by Pooja Mckeon RN; Per protocol; :18:21 Heparin Flush Bag (1000units/500ml NS) 3 bags added to field was administered by Brad Rothman MD; Per protocol; :18:44 Lidocaine 1% 20ml vial added to field was administered by Brad Rothman MD; Per protocol; ::02 Physician arrived 11:26:30 --------ALL STOP TIME OUT------ 11:26:32 Final Timeout: patient, procedure, and site verified with staff and physician. All members of the team are in agreement. 11:27:15 Procedure started. 11:27:26 Local anesthetic to left femerol artery with Lidocaine 1% by Brad Rothman MD.INITIAL ACCESS ONLY 11:27:35 Arterial access obtained using ultrasound guidance. 11:30:35 Fentanyl 50 mcg was administered by Mary Roland RN; for sedation; 11:30:45 Versed 1 mg I.V. was administered by Mary Roland RN; for sedation; 11:34:31 TUBING Contrast Injection High Pressure (FOL551R) opened to sterile field. 11:40:21 GLIDE WIRE ANGLE 180cm (OP1167) opened to sterile field. 11:40:22 GLIDE CATHETER 5FR ANGLED 65cm (CG507) opened to sterile field. 11:40:34 TORQUE DEVICE PLASTIC .038 ( TD01) opened to sterile field. 11:55:40 EXOSEAL 5Fr (EX500) opened to sterile field. 11:56:18 Sheath removed intact; hemostasis achieved with Exoseal to the Left Femoral artery. 11:56:18 A sheath was inserted into the Left Femoral artery 11:56:39 Fentanyl 50 mcg was administered by Mary Roland RN; for sedation; 11:56:47 Versed 1 mg I.V. was administered by Mary Roland RN; for sedation; 11:57:20 Procedure ended.(Physican Out) 11:59:39 Fluoroscopy time 04.70 minutes. 11:59:45 Fluoroscopy dose: 272 mGy 11:59:45 Flurop Dose total: 272 11:59:51 Contrast amount:Isovue 300 95ml. 12:00:37 Procedure and supply charges have been captured, reviewed, submitted an d are correct. 12:06:01 Vital chart was stopped 12:06:05 Full Disclosure recording stopped Device Usage Item Name Manufacture Quantity Catalog Number Hospital Part [facility] Lot# / Charge Number Stock Stock Serial# Code Micropuncture VSI VASCULAR 1 7266V 131298 264450 5 VSI 4FR kit SOLUTIONS CHOICE PT [place] 1 [id number] 472892 827835 703032 5 Extra Support Scientific J 300cm guide wire ([id number]) DOC .035 wire [facility] [facility] 1 [id number] 716124 121619 5 ([id number]) MCGRATH 260 [employer] 1 C24104 858882 01815 793545 5 [id number] wire (J97463) SHEATH 5FR Terumo 1 IHL640 558328 572299 954270 40 [place] (WQJ514) Angiodynamics Angiodynamics 1 [id number] 808214 309687 779299 5 Omniflush 5Fr 65cm (19367459) Tegaderm 4 x 3M 1 1626W 281922 160200 394605 5 4 (1626W) Sterile Cardinal 1 [id number] 758878 830839 5 Angiographic Health Pack Bag Decanter Microtek 1 2002S 650083 34478 454363 5 (2001S) Medical Inc. ACIST Acist Medical 1 52945 733852 125609 022707 5 Manifold Systems Inc (30038) ACIST Hand Acist Medical 1 86745 573030 870181 185651 5 Control Systems Inc (79765) ACIST Syringe Acist Medical 1 74624 123572 820090 444588 20 (99875) Systems Inc TUBING [facility] 1 [id number] 215763 635247 627440 5 Contrast Injection High Pressure ([id number]) GLIDE WIRE Terumo 1 TQ5015 336605 241299 547316 5 ANGLE 180cm (CV1286) GLIDE Terumo 1 CG507 857112 108132 5 CATHETER 5FR ANGLED 65cm (CG507) TORQUE DEVICE [place] 1 TD01 467464 992284 591832 5 PLASTIC .[facility] Scientific ( TD01) EXOSEAL 5Fr Cardinal 1 EX500 307805 641398 657051 10 (EX500) Health Signature Audit [place] Stage Time Signature Unsigned Intra-Procedure 09/15/2017 Demetra Talley RT 12:05:58 PM RT(R) (R) (CV) 09/15/2017 12:24:13 PM Intra-Procedure 09/15/2017 Yanick 12:24:57 PM Mayank RT (R) (CV); Demetra Schuster RT(R) Signatures Monitor : Demetra Schuster RT Signature : Date : Time : [facility] [address] [place] [address]
[~2017-09-15 07:15] MED LIST changes: -BUSPAR10 MG PO; -PENTOXIFYLLINE400 MG PO; -PRAVACHOL20 MG PO
[2017-09-15 08:02] LABS: BASOPHILS 0 % (0-2); EOSINOPHILS 0.4 % (0-7); HEMATOCRIT 41.7 % (42.0-54.0); HEMOGLOBIN 13.9 g/dL (13.5-17.5); IMMATURE GRANULOCYTES 0.6 % (0-5); LYMPHOCYTES 12.4 % (15-50); MCH 31.7 pg (26.0-34.0); MCHC 33.3 g/dL (31.0-37.0); MEAN PLATELET VOLUME 9.5 fL (7.4-10.4); MONOCYTES 6.4 % (2-11); NEUTROPHILS 80.2 % (40-80); PLATELET COUNT 280 10x3/uL (130-400); RBC 4.39 10x6/uL (4.20-6.10); RDW 15.2 % (11.5-14.5); WBC 11.2 10x3/uL (4.8-10.8)
[2017-09-15 08:06] LABS: ANION GAP 10.9 mmol/L (8-16); CALCIUM 10.5 mg/dL (8.5-10.1); CARBON DIOXIDE 36.3 mmol/L (21.0-32.0); CREATININE - SERUM 1.3 mg/dL (0.6-1.3); POTASSIUM - SERUM 4.2 mmol/L (3.5-5.1)
[2017-09-15 08:08] LABS: APTT 23.3 SECONDS (22.8-39.4); INR 0.87 (0.85-1.17); PROTIME 11.4 SECONDS (11.6-15.0)
[2017-09-15] MEDS ORDERED: PRAVACHOL20 MG PO (08:31)
[2017-09-15] MEDS ORDERED: PREDNISONE10 MG PO (08:33)
[2017-09-15] MEDS ORDERED: BUSPAR10 MG PO (08:34)
[2017-09-15 08:35] VITALS: BP 141/84; Ht 177.8 cm; Wt 60.9 kg
[2017-09-15] MEDS ORDERED: PENTOXIFYLLINE400 MG PO (08:58)
== END 2017-09-15 15:30 | disposition home or self-care (01) ==
LOC: D.SP 07:15 → D.RAD 08:00 → D.SP 10:00
PROVIDERS: General Practice
DX: I70.223 Atherosclerosis of native arteries of extremities with rest pain, bilateral legs (principal); I65.23 Occlusion and stenosis of bilateral carotid arteries; Z01.812 Encounter for preprocedural laboratory examination

== ENCOUNTER → 2017-11-30 12:03 | Outpatient (CLI) | payer MEDICARE, BC ==
[2017-09-15 08:35] VITALS: BMI 19.2
[~2017-11-30 12:03] MED LIST changes: +BUSPAR10 MG PO; +PENTOXIFYLLINE400 MG PO; +PRAVACHOL20 MG PO
== END | disposition home or self-care (01) ==
LOC: D.RT 12:03
DX: J45.909 Unspecified asthma, uncomplicated (principal)

== ENCOUNTER 2018-06-05 16:05 | Inpatient (IN) | payer MEDICARE, BC ==
[~2018-06-05] VITALS: Ht 177.8 cm; Wt 59.6 kg
[2018-06-05] MEDS ORDERED: TOPROL XL50 MG PO (16:24)
--- NOTE | 2018-06-05 16:25 | NUR ---
URINE COLLECTED BY NURSE AND SENT TO LAB.
[2018-06-05 17:25] LABS: BASOPHILS 0 % (0-2); EOSINOPHILS 0.6 % (0-7); HEMATOCRIT 33.9 % (42.0-54.0); HEMOGLOBIN 10.9 g/dL (13.5-17.5); IMMATURE GRANULOCYTES 0.2 % (0-5); LYMPHOCYTES 5.9 % (15-50); MCH 29.4 pg (26.0-34.0); MCHC 32.2 g/dL (31.0-37.0); MCV 91.4 fL (80.0-100.0); MEAN PLATELET VOLUME 10.9 fL (7.4-10.4); MONOCYTES 8.1 % (2-11); NEUTROPHILS 85.2 % (40-80); PLATELET COUNT 310 10x3/uL (130-400); RBC 3.71 10x6/uL (4.20-6.10); RDW 14.2 % (11.5-14.5); WBC 14.3 10x3/uL (4.8-10.8)
[2018-06-05 17:29] LABS: APTT 23.7 SECONDS (22.8-39.4); INR 0.91 (0.85-1.17); PROTIME 11.8 SECONDS (11.6-15.0)
[2018-06-05 17:49] LABS: ALBUMIN 3.2 g/dL (3.4-5.0); ALKALINE PHOSPHATASE 59 U/L (46-116); ALT (SGPT) 22 U/L (10-68); BILIRUBIN - TOTAL 0.33 mg/dL (0.2-1.3); CALC OSMOLALITY 296 mosm/kg (275-300); CARBON DIOXIDE 37.4 mmol/L (21.0-32.0); CHLORIDE - SERUM 97 mmol/L (98-107); CKMB 2.9 U/L (0.0-3.6); CREATINE KINASE 295 UL (21-232); CREATININE - SERUM 2.3 mg/dL (0.6-1.3); GLUCOSE 132 mg/dL (74-106); PRO BNP 944 pg/mL (0-450); PROTEIN - SERUM 6.6 g/dL (6.4-8.2); SODIUM 142 mmol/L (136-145); TROPONIN-I 0.034 ng/mL (0.000-0.060); UREA NITROGEN 47 mg/dL (7-18); eGFR NON AFRICAN AMERICAN 29 mL/min (90-120)
[2018-06-05 17:56] LABS: CALCIUM 13.1 mg/dL (8.5-10.1)
[2018-06-05 18:04] LABS: APPEARANCE CLEAR (CLEAR); BILIRUBIN NEGATIVE (NEGATIVE); COLOR YELLOW (YELLOW); GLUCOSE NEGATIVE (NEGATIVE); KETONE NEGATIVE (NEGATIVE); NITRITE NEGATIVE (NEGATIVE); PROTEIN NEGATIVE (NEGATIVE); UROBILINOGEN NORMAL (NORMAL)
[2018-06-05 18:05] LABS: BACTERIA MODERATE /hpf (NONE SEEN); RED CELLS - URINE 0-5 /hpf (0-5); WHITE CELLS - URINE 0-5 /hpf (0-5)
--- NOTE | 2018-06-05 22:16 | NUR ---
PT TO ROOM VIA WHEELCHAIR AT 2140 ACCOMPANIED BY HOSPITAL STAFF AND . PT SOILED BRIEF, CLEANED PT AND CHANGED LINENS. 02 ON AT 4L VIA NC. VSS. SP02 100%. NO C/O PAIN OR DISCOMFORT AT THIS TIME. PT LETHARGIC BUT ORIENTED X4. HAS TROUBLE RECALLING TIMES ON LAST TIME MEDS HAVE BEEN TAKEN. DENIES ANY NEEDS AT THIS TIME. WCTM AND FOLLOW POC. HISTORY AND MED REC COMPLETED. CL IN REACH, SR UP X2, BED IN LOWEST POSITION.
[2018-06-06] VITALS (7 sets, daily range): BP systolic 102–165; BP diastolic 56–108; BMI 17.1; BMI 17.0
--- NOTE | 2018-06-06 03:30 | NUR ---
RESUMING PT CARE - PT RESTING IN BED QUIETLY WITH EYES CLOSED. RR EVEN AND UL, NO S/S OF DISTRESS. NO NEEDS NOTED AT THIS TIME. CL IN REACH, SR UP X2, BED IN LOWEST POSITION, AT BEDSIDE.
--- NOTE | 2018-06-06 07:10 | NUR ---
REPORT RECIEVED FROM AUTO INSPECTION SPECIALIST. PATIENT LAYING IN BED ON BACK AWAKE,ALERT AND ORIENTED X 4. AT BEDSIDE. PATIENT DENIES ANY NEEDS OR PAIN. WILL CONTINUE WITH PLAN OF CARE. SR UP X 2 BED IN LOW POSITION AND CALL LIGHT IN REACH.
--- NOTE | 2018-06-06 10:00 | NUR ---
20G IV PLACED IN LEFT FA. NS WITH 20MEQ OF KCL HUNG TO INFUSE VIA PUMP AT 125ML/HR PER ORDER. PT TOLERATED WELL. IVPB AZITHROMYCIN 500MG HANGING IN ROOM BUT BAG REMAINS COMPLETELY FULL. IVPB REMOVED FROM PUMP AT THIS TIME. PT DENIES FURTHER NEEDS AT THIS TIME.
[2018-06-06 19:20] LABS: CARBON DIOXIDE 35.6 mmol/L (21.0-32.0); CREATININE - SERUM 1.9 mg/dL (0.6-1.3)
[2018-06-06 19:37] LABS: POTASSIUM - SERUM 3.6 mmol/L (3.5-5.1)
[2018-06-06 19:38] LABS: CALCIUM 12.3 mg/dL (8.5-10.1)
--- NOTE | 2018-06-06 20:00 | NUR ---
INITIAL ASSESSMENT COMPLETED - PT LETHARGIC/O X4, ON 4L OF O2 VIA NC. VSS. NO C/O PAIN/DISCOMFORT AT THIS TIME. HELPED UP TO SIDE OF THE BED TO USE URINAL. NO OTHER NEEDS NOTED AT THIS TIME. RR EVEN AND UL. CL IN REACH, SR UP X2, BED IN LOWEST POSITION.
[2018-06-06 20:04] LABS: ERYTHROCYTE SEDIMENTATION RATE 25 mm/hr (0-20)
[2018-06-07] VITALS: BP 186/67
--- NOTE | 2018-06-07 01:17 | NUR ---
TO PT ROOM VIA CALL LIGHT - ASSISTED PT OFF OF TOILET. CHAVEZ, JEOVANNY STOOL NOTED IN TOILET AND FLAKE AROUND PT'S BUTTOCKS. CLEANED PT AND ASSISTED BACK TO BED. NO OTHER NEEDS NOTED AT THIS TIME. WCTM. CL IN REACH, SR UP X2, BED IN LOWEST POSITION.
[2018-06-07 04:00] VITALS: BP 145/75
--- NOTE | 2018-06-07 06:13 | NUR ---
PT RESTING IN BED COMFORTABLY. VSS. RR EVEN AND UL, NO S/S OF DISTRESS. NO NEEDS NOTED AT THIS TIME. WILL CONTINUE TO ASSESS NEEDS. CL IN REACH, SR UP X2, BED IN LOWEST POSITION.
[2018-06-07 06:43] LABS: BASOPHILS 0 % (0-2); EOSINOPHILS 0 % (0-7); HEMATOCRIT 29.5 % (42.0-54.0); HEMOGLOBIN 9.4 g/dL (13.5-17.5); IMMATURE GRANULOCYTES 0.3 % (0-5); LYMPHOCYTES 6.8 % (15-50); MCH 29.3 pg (26.0-34.0); MCHC 31.9 g/dL (31.0-37.0); MCV 91.9 fL (80.0-100.0); MEAN PLATELET VOLUME 10.5 fL (7.4-10.4); MONOCYTES 6.7 % (2-11); NEUTROPHILS 86.2 % (40-80); PLATELET COUNT 269 10x3/uL (130-400); RBC 3.21 10x6/uL (4.20-6.10); RDW 14.3 % (11.5-14.5); WBC 13.4 10x3/uL (4.8-10.8)
--- NOTE | 2018-06-07 07:10 | NUR ---
PATIENT LAYING IN BED ON BACK WITH EYES CLOSED AND BREATHING EVENLY. SR UP X 2 BED IN LOW POSITION AND CALL LIGHT IN REACH. WILL CONTINUE WITH PLAN OF CARE.
[2018-06-07 07:11] LABS: ALBUMIN 2.7 g/dL (3.4-5.0); ANION GAP 8.5 mmol/L (8-16); BILIRUBIN - TOTAL 0.22 mg/dL (0.2-1.3); CALCIUM 11.6 mg/dL (8.5-10.1); CREATININE - SERUM 1.8 mg/dL (0.6-1.3); POTASSIUM - SERUM 3.5 mmol/L (3.5-5.1); PROTEIN - SERUM 5.8 g/dL (6.4-8.2)
--- NOTE | 2018-06-07 09:00 | NUR ---
PATIENT ASSISTED TO TOILET. HAD MOD AMOUNT OF BROWN STOOL.PATIENT CLEANED UP AND LINENS CHANGED. PATIENT DENIES ANY NEEDS OR PAIN. SR UP BED IN LOW POSITION AND CALL LIGHT IN REACH. WILL CONTINUE TO MONITOR.
[2018-06-07 09:45] VITALS: BP 154/87
[2018-06-07 11:00] VITALS: BP 144/86
--- NOTE | 2018-06-07 11:00 | NUR ---
PATIENT UNCHANGED. WILL CONTINUE TO MONITOR.
[2018-06-07] MEDS ORDERED: DALIRESP500 MCG PO (12:11)
--- NOTE | 2018-06-07 12:30 | NUR ---
PATIENT SITTING ON SIDE OF BED DOING BREATHING TREATMENT. PATIENT DENIES ANY NEEDS OR COMPLAINTS. WILL CONTINUE TO MONITOR.
[2018-06-07 14:54] VITALS: Ht 177.8 cm; Wt 59.6 kg
[2018-06-07 15:00] VITALS: BP 166/78
--- NOTE | 2018-06-07 15:20 | NUR ---
PATIENT LAYING ON RT SIDE WITH EYES CLOSED AND BREATHING EVENLY. SR UP X 2 BED IN LOW POSITON AND CALL LIGHT IN REACH. WILL CONTINUE TO MONITOR.
[2018-06-07 15:41] LABS: CREATININE - URINE 59.1 mg/dL (30-125); PRO/CRE RATIO URINE 0.3 mg/g; PROTEIN - URINE 18.6 mg/dL (0.0-11.9)
[2018-06-07 15:44] LABS: APPEARANCE CLEAR (CLEAR); BILIRUBIN NEGATIVE (NEGATIVE); COLOR YELLOW (YELLOW); GLUCOSE NEGATIVE (NEGATIVE); KETONE NEGATIVE (NEGATIVE); NITRITE NEGATIVE (NEGATIVE); PROTEIN TRACE mg/dL (NEGATIVE); RED CELLS - URINE 0-5 /hpf (0-5); SPECIFIC GRAVITY 1.015 (1.005-1.020); UROBILINOGEN NORMAL (NORMAL); WHITE CELLS - URINE 0-5 /hpf (0-5)
--- NOTE | 2018-06-07 17:30 | NUR ---
PATIENT UP TO BR. PATIENT HAD SMALL BM AND VOIDED IN URINAL FOR URINE SPECIMEN. PATIENT ASSISTED BACK TO BED. PATIENT TOLERATED WELL. SR UP X 2 BED IN LOW POSITON AND CALL LIGHT IN REACH. WILL CONTINUE TO MONITOR.
--- NOTE | 2018-06-07 18:04 | NUR ---
PATIENT LAYING IN BED ON BACK. PATIENT DENIES ANY NEEDS OR PAIN. WILL CONTINUE TO MONITOR.
--- NOTE | 2018-06-07 19:40 | NUR ---
INITIAL ASSESSMENT COMPLETED - PT IS VERY CONFUSED AND TRYING TO GET UP CONSTANTLY. BED ALARM ON, FALL PRECAUTIONS IN PLACE. HAS NO IV ACCESS AT THIS TIME BECAUSE HE PULLED OUT HIS OTHER IV. WHEN ATTEMPTING TO REORIENT PT, HE BECOMES COMBATIVE AND THREATENS TO HURT STAFF BY "PUNCHING AND SLAPPING THEM." NOTIFIED PT FAMILY TO ADVISE SOMEONE TO COME SIT AT BEDSIDE WITH PT, FAMILY STATES THAT THEY "HAVE TO WORK IN THE MORNING AND CANNOT COME IN." ADMINISTERED PT'S PM MEDS INCLUDING KLONOPIN, PT SEEMS LETHARGIC BUT STILL ATTEMPTING TO GET OUT OF BED AND CONTINUES TO PEE ON THE FLOOR THROUGHOUT THE NIGHT. PT REFUSES TO USE A URINAL AND TRIES TO GET UP AND WALK TOWARDS THE DOOR, EVEN WHEN REORIENTED TO WHERE THE BATHROOM IS. BROUGHT PATIENT OUT IN A RECLINER TO SIT BY NURSES STATION. PT DOZED OFF AND THEN WOKE BACK UP TRYING TO STAND UP AND PEE, AND BECOMES COMBATIVE WHEN TOLD HE CANNOT STAND UP AND MUST USE URINAL. PT DAUGTHER AT BEDISE AT 0130. PT SLIGHTLY MORE CALM AND RESTING IN BED WITH DAUGTHER AT BEDSIDE. WCTM AND FOLLOW POC. CL IN REACH SR UP X2, BED IN LOWEST POSITION, BED ALARM ON.
[2018-06-07 20:00] VITALS: BP 139/80
[2018-06-08] VITALS: BP 149/86
[2018-06-08 04:00] VITALS: BP 138/71
[2018-06-08 06:17] LABS: BASOPHILS 0 % (0-2); EOSINOPHILS 0 % (0-7); IMMATURE GRANULOCYTES 0.2 % (0-5); LYMPHOCYTES 3.8 % (15-50); MCH 29.2 pg (26.0-34.0); MCHC 31.3 g/dL (31.0-37.0); MCV 93.6 fL (80.0-100.0); MEAN PLATELET VOLUME 10.9 fL (7.4-10.4); MONOCYTES 1.3 % (2-11); NEUTROPHILS 94.7 % (40-80); PLATELET COUNT 295 10x3/uL (130-400); RBC 3.42 10x6/uL (4.20-6.10); RDW 14.5 % (11.5-14.5); WBC 10.3 10x3/uL (4.8-10.8)
[2018-06-08 06:26] LABS: ALBUMIN 2.9 g/dL (3.4-5.0); ANION GAP 10.4 mmol/L (8-16); BILIRUBIN - TOTAL 0.18 mg/dL (0.2-1.3); CALCIUM 10.6 mg/dL (8.5-10.1); CARBON DIOXIDE 34.2 mmol/L (21.0-32.0); CREATININE - SERUM 1.8 mg/dL (0.6-1.3); MAGNESIUM - SERUM 1.9 mg/dL (1.8-2.4); POTASSIUM - SERUM 3.6 mmol/L (3.5-5.1); PROTEIN - SERUM 6.4 g/dL (6.4-8.2)
--- NOTE | 2018-06-08 07:32 | NUR ---
REPORT RECEIVED. WILL CONTINUE WITH POC. PT CURRENTLY LYING SUPINE. CALL LIGHT W/I REACH. RR EVEN AND UNLABORED ON 4L 02. R.AC PIV IS SALINE LOCKED. FAMILY AT BEDSIDE. PT IS RESTING AT THE MOMENT. FALL PRECAUTIONS IN PLACE. WILL CTM.
[2018-06-08 08:15] VITALS: BP 153/71
--- NOTE | 2018-06-08 09:20 | NUR ---
UP IN CHAIR WITH CALL LIGHT IN REACH. WILL CONT. PLAN OF CARE.
[2018-06-08 11:41] VITALS: BP 144/86
[2018-06-08 14:19] LABS: UPE RAND - ALBUMIN 24.5 % (()); UPE RAND - ALPHA 2 GLOBULIN 19.2 % (()); UPE RAND - BETA GLOBULIN 26.8 % (()); UPE RAND - GAMMA GLOBULIN 23.5 % (())
[2018-06-08 14:19] LABS: SPE - A/G RATIO 1.2 (0.7-1.7); SPE - ALBUMIN 3.1 g/dL (2.9-4.4); SPE - ALPHA-1 GLOBULIN 0.3 g/dL (0.0-0.4); SPE - ALPHA-2 GLOBULIN 0.7 g/dL (0.4-1.0); SPE - BETA GLOBULIN 0.9 g/dL (0.7-1.3); SPE - GAMMA GLOBULIN 0.6 g/dL (0.4-1.8); SPE - M-SPIKE Not Observed g/dL (Not Observed); SPE - TOTAL PROTEIN 5.6 g/dL (6.0-8.5)
--- NOTE | 2018-06-08 14:23 | NUR ---
Nutrition Follow Up: Pt was unavailable at the time of RD visit. Spoke with pt's daughter who reported that pt is unable to cut meat, fix coffee, etc on his own due to shaking. She said that pt's appetite varies; he loves breakfast and then eats a small lunch and dinner when at home. Daughter reported that pt agreed to try supplements and prefers chocolate. Food preferences noted. Diet: Regular PO Intake: none recorded; fair per pt family BM: 06/07/18 Wt gain noted Labs reviewed Meds noted including Lasix, Solu Medrol Rec continue current diet. Will order Boost TID and will honor food preferences. RD following.
--- NOTE | 2018-06-08 18:33 | NUR ---
PT LYING SEMI FOWLERS. CALL LIGHT W/I REACH. RR EVEN AND UNLABORED ON 4L 02. D5W INFUSING @125ML/HR VIA R.AC PIV. PT HAD ONE EPISODE ON URINE INCONTINENCE. CLEANED PT AND APPLIED NEW LINEN. PT DENIES ANY NEEDS AT THIS TIME. WILL PASS REPORT AND CONTINUE WITH POC.
[2018-06-08 20:00] VITALS: BP 147/63
--- NOTE | 2018-06-08 20:00 | NUR ---
INITIAL ASSESSMENT COMPLETED - PT RESTING IN BED WITH EYES CLOSED, EASILY AROUSABLE. VSS, RR EVEN AND UL ON 4L OF 02 VIA NC. SON AT BEDSIDE. A/O X3. DENIES ANY PAIN/DISCOMFORT AT THIS TIME. DENIES ANY BATHROOM NEEDS. WILL CONTINUE TO ASSESS AND FOLLOW POC. CL IN REACH, SR UP X2, BED ALARM ON AND IN LOWEST POSITION.
[2018-06-08 21:00] VITALS: BP 147/63
[2018-06-09 00:27] VITALS: BP 147/71
[2018-06-09 05:02] VITALS: BP 134/68
[2018-06-09 05:03] LABS: BASOPHILS 0 % (0-2); EOSINOPHILS 0 % (0-7); HEMATOCRIT 30.1 % (42.0-54.0); HEMOGLOBIN 9.6 g/dL (13.5-17.5); IMMATURE GRANULOCYTES 0.2 % (0-5); LYMPHOCYTES 4.2 % (15-50); MCH 29.4 pg (26.0-34.0); MCHC 31.9 g/dL (31.0-37.0); MONOCYTES 3.5 % (2-11); NEUTROPHILS 92.1 % (40-80); PLATELET COUNT 276 10x3/uL (130-400); RBC 3.27 10x6/uL (4.20-6.10); RDW 14.2 % (11.5-14.5); WBC 10.3 10x3/uL (4.8-10.8)
[2018-06-09 05:20] LABS: ALBUMIN 2.6 g/dL (3.4-5.0); ANION GAP 8.1 mmol/L (8-16); BILIRUBIN - TOTAL 0.18 mg/dL (0.2-1.3); CALCIUM 9.1 mg/dL (8.5-10.1); MAGNESIUM - SERUM 1.7 mg/dL (1.8-2.4); POTASSIUM - SERUM 3.1 mmol/L (3.5-5.1); PROTEIN - SERUM 5.7 g/dL (6.4-8.2)
--- NOTE | 2018-06-09 05:48 | NUR ---
PT SLEPT THROUGHOUT THE WHOLE NIGHT WITH SON AT BEDSIDE WITH RR EVEN AND UL AND NO S/S OF DISTRESS. VSS. NO NEEDS NOTED AT THIS TIME. AM MED PASS COMPLETE, PT TOLERATED WELL AND STATES THAT HE IS FEELING BETTER. CL IN REACH, SR UP X2, BED IN LOWEST POSITION, BED ALARM ON.
[2018-06-09 08:08] VITALS: BP 213/72
--- NOTE | 2018-06-09 10:38 | NUR ---
PT'S SON ASSISTING PT WITH SHAVING.
[2018-06-09 11:30] VITALS: BP 149/68
--- NOTE | 2018-06-09 11:44 | NUR ---
PT WANTING TO GET UP AND GET IN RECLINER CHAIR AND POSSIBLY WALK AROUND. PHYSICAL THERAPY CONSULT PLACED.
--- NOTE | 2018-06-09 13:05 | NUR ---
PT'S LAST BP WAS 149/68. REPORTED THIS TO CELIO WILKES. JACEYE ASKED ME IF PHYSICAL THERAPY IS WORKING WITH PT. I STATED TO HER I CONSULTED THEM BUT THEY ARE AT [place] AND I'M WAITING FOR THEM TO RETURN. SHE VARBALIZED UNDERSTANDING.
--- NOTE | 2018-06-09 13:37 | NUR ---
RESTING QUIETLY NAD NOTED
--- NOTE | 2018-06-09 13:51 | NUR ---
PHYSICAL THERAPY GOT PT UP AND PLACED HIM IN RECLINER CHAIR.
--- NOTE | 2018-06-09 14:35 | NUR ---
PT STATES HE NEEDS TO HAVE A BM. PT ASSISTED FROM RECLINER CHAIR TO TOILET.
--- NOTE | 2018-06-09 14:41 | NUR ---
PT ASSISTED BACK TO BED BY RESEARCH PHYSICIAN.
--- NOTE | 2018-06-09 16:39 | NUR ---
PT IN BED. EYES CLOSED. CHEST RISING AND FALLING. O2 AT 2L VIA NC. SHOWS NO S/S OF DISTRESS. WILL CONTINUE TO MONITOR. NO FAMILY AT BEDSIDE. BED ALARM ON. BED LOW. CL IN REACH.
--- NOTE | 2018-06-09 17:59 | NUR ---
RIGHT AC 22G IV LEAKING. DC'D WITH CATH INTACT.
--- NOTE | 2018-06-09 18:34 | NUR ---
22 GAUGE IV PLACED TO RIGHT FOREARM X 1 STICK. GOOD BLOOD RETURN, EASY FLUSH. TOLERATED IV PLACEMENT WELL. TAPED, DATED AND SECURED. IV FLUIDS INFUSING ORDERED AT THIS TIME.
[2018-06-09 20:00] VITALS: BP 133/61
--- NOTE | 2018-06-09 20:00 | NUR ---
INITIAL ROUNDS AND ASSESSMENT COMPLETED. FAMILY X 2 IN ROOM. PT ALERT/ORIENTED. REQUESTED TYLENOL GIVEN FOR HEADACHE. NO OTHER NEEDS VOICED. MONITOR AND CPOC.
[2018-06-10] VITALS: BP 139/73
--- NOTE | 2018-06-10 02:00 | NUR ---
RESTING IN BED WITH EYES CLOSED. RESP EVEN/NONLABORED. IVF INFUSING. O2 @ 4L/NC. MONITOR AND CPOC.
[2018-06-10 04:00] VITALS: BP 155/95
--- NOTE | 2018-06-10 04:44 | NUR ---
SKI MAKER WOOD HAS BEEN CHECKING PATIENT EVERY 2 HOURS AND CHANGING HIS BRIEF AND PROVIDING INCONTINENCE CARE. PT HAS BEEN COOPERATIVE/ALERT AND ABLE TO STAND AT BEDSIDE TO CHANGE OUT HIS BRIEFS AND ASSIST IN GETTING IN AND OUT OF BED. IVF INFUSING. NO DISTRESS.
[2018-06-10 06:16] LABS: BASOPHILS 0.1 % (0-2); EOSINOPHILS 0.5 % (0-7); HEMATOCRIT 29.2 % (42.0-54.0); HEMOGLOBIN 9.5 g/dL (13.5-17.5); IMMATURE GRANULOCYTES 0.4 % (0-5); LYMPHOCYTES 12.3 % (15-50); MCH 29.3 pg (26.0-34.0); MCHC 32.5 g/dL (31.0-37.0); MCV 90.1 fL (80.0-100.0); MEAN PLATELET VOLUME 10.8 fL (7.4-10.4); NEUTROPHILS 77.7 % (40-80); PLATELET COUNT 271 10x3/uL (130-400); RBC 3.24 10x6/uL (4.20-6.10); RDW 13.9 % (11.5-14.5); WBC 10.7 10x3/uL (4.8-10.8)
[2018-06-10 06:47] LABS: ALBUMIN 2.4 g/dL (3.4-5.0); ANION GAP 10.7 mmol/L (8-16); BILIRUBIN - TOTAL 0.2 mg/dL (0.2-1.3); CREATININE - SERUM 1.6 mg/dL (0.6-1.3); MAGNESIUM - SERUM 1.6 mg/dL (1.8-2.4); PROTEIN - SERUM 5.4 g/dL (6.4-8.2)
[2018-06-10 06:50] LABS: POTASSIUM - SERUM 2.7 mmol/L (3.5-5.1)
--- NOTE | 2018-06-10 09:20 | NUR ---
RESTING QUIETLY NAD NOTED
[2018-06-10 10:50] VITALS: BP 154/70
--- NOTE | 2018-06-10 13:54 | NUR ---
NOTIFY PULMANOLOGY SIGNS OFF AND REQUESTING PHYSICAL THERAPY OR REHAB. PATIENT SITTING UP IN CHAIR. ALERT AND ORIENTED X4. DENIES ANY NEEDS. POTASSIUM AND MAGNESIUM REPLACED PER PROTOCOL. CONTINUE PLAN OF CARE AND SAFETY PRECAUTIONS.
[2018-06-10 16:30] VITALS: BP 150/80
[2018-06-10 17:41] VITALS: BP 157/86
[2018-06-10 20:38] VITALS: BP 129/61
--- NOTE | 2018-06-10 21:06 | NUR ---
ALERT/AWAKE ORIENTED X4. DENIES PAIN OR ANY NEEDS. ADMIN SCHED MEDS WITH SIPS OF WATER SWALLOWING WITHOUT DIFFICULTY. ASSESSMENTS DONE PER NSG FLOWCHART. ORIENTED TO CALL LIGHT FOR ANY NEEDS.
[2018-06-11] VITALS: BP 129/86
--- NOTE | 2018-06-11 00:30 | NUR ---
ASSISTED TO STAND BESIDE BED TO URINATE IN URINAL PER HIS REQUEST. URINATED 100 CC LT YELLOW URINE. CHANGED WET YELLOW GOWN AND BEDDING. ELEVATED LEGS ON 3 PILLOWS PER HIS REQUEST.
--- NOTE | 2018-06-11 03:09 | NUR ---
IV LEAKING. REMOVED AND RESITED IN LEFT FA 20G.
[2018-06-11 04:00] VITALS: BP 135/69
[2018-06-11 05:21] LABS: BASOPHILS 0 % (0-2); EOSINOPHILS 0.8 % (0-7); HEMATOCRIT 28.2 % (42.0-54.0); HEMOGLOBIN 9.2 g/dL (13.5-17.5); IMMATURE GRANULOCYTES 0.3 % (0-5); LYMPHOCYTES 12.1 % (15-50); MCH 29.9 pg (26.0-34.0); MCHC 32.6 g/dL (31.0-37.0); MCV 91.6 fL (80.0-100.0); MEAN PLATELET VOLUME 10.9 fL (7.4-10.4); MONOCYTES 8.3 % (2-11); NEUTROPHILS 78.5 % (40-80); PLATELET COUNT 269 10x3/uL (130-400); RBC 3.08 10x6/uL (4.20-6.10); RDW 14.6 % (11.5-14.5); WBC 9.7 10x3/uL (4.8-10.8)
[2018-06-11 05:59] LABS: ALBUMIN 2.4 g/dL (3.4-5.0); ANION GAP 7.7 mmol/L (8-16); BILIRUBIN - TOTAL 0.14 mg/dL (0.2-1.3); CALCIUM 7.9 mg/dL (8.5-10.1); CARBON DIOXIDE 34.4 mmol/L (21.0-32.0); CREATININE - SERUM 1.4 mg/dL (0.6-1.3); MAGNESIUM - SERUM 2.1 mg/dL (1.8-2.4); POTASSIUM - SERUM 4.1 mmol/L (3.5-5.1); PROTEIN - SERUM 5.3 g/dL (6.4-8.2)
--- NOTE | 2018-06-11 06:15 | NUR ---
REQUESTED CUP OF COFFEE. DID NOT OBSERVE HIM SLEEPIN ANY LAST NIGHT.
--- NOTE | 2018-06-11 07:10 | NUR ---
INITIAL ROUNDING, PT SLEEPING WITH HOB AT 45 DEGREES. O2 VIA NC IN PLACE, HE IS HOLDING THE CALL LIGHT, WEARING A BASEBALL CAP. NO S/S OF SOB/DISTRESS NOTED AT THIS TIME
[2018-06-11 07:42] VITALS: BP 151/72
--- NOTE | 2018-06-11 08:20 | NUR ---
REMOVED OLD NICOTINE PATCH FROM THE LEFT UPPER SHOULDER. PLACED NEW PATCH ON RIGHT UPPER SHOULDER AREA, PATCH IS TIMED, DATED AND SIGNED.
--- NOTE | 2018-06-11 09:15 | NUR ---
BURLAP BAG SEWER REPORTED A "SKIN TEAR" TO THE CHARGE NURSE. MISTI, THE CHARGE NURSE ASSESSED AND APPLIED A DRY DRSG OVER THE SITE ON THE RIGHT UPPER ARM. SHE REPORTS THE PATIENT TOLD HER HE HAD REMOVED SOME TAPE AND THE AREA STARTED TO BLEED. 0928- UNABLE TO ASSESS THE WOUND DUE TO A DRESSING COVERING IT. PATIENT IS SITTING " STYLE" IN THE MIDDLIE OF HIS BED, PT JUST COMING TO SEE THE PATIENT. PATIENT DENIES PAIN.
[2018-06-11 11:18] VITALS: BP 119/57
--- NOTE | 2018-06-11 13:29 | NUR ---
SPOKE TO MAMADOU, PATIENTS SON AT [phone]. MAMADOU INFORMS THIS NURSE THAT HIS SON WILL BE THE ONE TO DRIVABILITY TECHNICIAN THE PATIENT BETWEEN 4 AND 5 PM. MAMADOU ALSO INQUIRED ABOUT A "CLEAR BAG WITH THE PATIENTS MEDICINE IN IT", STATE IT WAS IN HIS ROOM BUT NOW THE PATIENT IS UNABLE TO LOCATE IT. NURSE HADLEY REPORTS THE PATIENT WAS LOOKING FOR IT YESTERDAY, HADLEY CALLED THE PHARMACY TO SEE IF BY CHANCE IT WAS THERE, AND IT WAS NOT.
--- NOTE | 2018-06-11 13:49 | MORECARE ---
CASE MANAGEMENT DISCHARGE SUMMARY PATIENT: Zuhair GOINS JR UNIT: [id number] ADM DATE: 06/05/18 AGE: 83 : 34 SEX: M ROOM/BED: D.2132 AUTHOR: ROGER LU PHYSICIAN: REFERRING PHYSICIAN: JAYNE HANKS MD DATE OF SERVICE: 06/11/18 Discharge Plan Patient Name: [facility]uhair GOINS [facility] [facility] 1935 Planned Disposition: Home with Home Health Anticipated Discharge Date: 06/11/18 Discharge Date: Expected LOS: 6 Initial Reviewer: [id number] Initial Review Date: 06/05/2018 Generated: 06/11/18 2:49 pm External Providers External Provider: [facility] Next Contact Date: 06/11/2018 Service Request Date: Service Type: Resolution: Reviewer: Comments: Patient Name: Zuhair GOINS Page [phone] at 1349 All edits/amendments must be made on the electronic document DICTATION DATE: 06/11/18 1349 ANESTHESIOLOGY PHYSICIAN ASSISTANT: RIO 06/11/18 1349 RPT#: [id number] DC DATE: STATUS: ADM IN [facility] [address] [place] [address] END OF REPORT
--- NOTE | 2018-06-11 13:57 | MORECARE ---
CASE MANAGEMENT DISCHARGE SUMMARY PATIENT: Zuhair GOINS JR UNIT: [id number] ADM DATE: 06/05/18 AGE: 83 : 34 SEX: M ROOM/BED: D.2132 AUTHOR: ALY,DOC PHYSICIAN: REFERRING PHYSICIAN: JAYNE HANKS MD DATE OF SERVICE: 06/11/18 Discharge Plan Patient Name: Zuhair GOINS Facility: [facility]:[place] : 1935 Planned Disposition: Home with Home Health Anticipated Discharge Date: 06/11/18 Discharge Date: Expected LOS: 6 Initial Reviewer: [email or web address] Initial Review Date: 06/05/2018 Generated: 06/11/18 2:56 pm DCPIA - Discharge Planning Initial Assessment Updated by DOROTHY: Jose Alejandro Stein on 06/11/18 1:52 pm * Is the patient Alert and Oriented? Yes * How many steps to enter\exit or inside your home? NONE * PCP DR. POOLE * [facility] [place] * Preadmission Environment Home with Family * ADLs Independent * Equipment Cane Nebulizer Oxygen Shower Chair Walker * Other Equipment HOME AND PORTABLE OXYGEN [facility] - MEDICAL EQUIPMENT PROVIDER * List name and contact numbers for known caregivers / representatives who currently or will assist patient after discharge: DANTE GOINS, SPOUSE, * Verbal permission to speak to the caregivers and representatives has been obtained from the patient. N/A * Community resources currently utilized Private Duty Care * Please name any agencies selected above. [facility] [place], 5 DAYS PER WEEK, COUPLE OF HOURS PER DAY [facility] * Additional services required to return to the preadmission environment? Yes * Can the patient safely return to the preadmission environment? Yes * Has this patient been hospitalized within the prior 30 days at any hospital? No Coverage Notice Reviewer: [email or web address] Stein Notice Issued Date-Time: 06/11/2018 12:15 Notice Type: Patient Choice Letter Notice Delivered To: Patient Relationship to Patient: Metal Fabricator Welder Name: Delivery Method: HAND - Hand Delivered Maisha Days: Prior Verbal Notification: Recipient Understood Notice: Yes Recipient Signature: Yes Med Rec Note Co-signed by Attending: Coverage Notice Comment: ANY HOME HEALTH AGENCY Reviewer: DOROTHY Stein Notice Issued Date-Time: 06/11/2018 12:20 Notice Type: IM Discharge Notice Notice Delivered To: Patient Relationship to Patient: Metal Fabricator Welder Name: Delivery Method: HAND - Hand Delivered Maisha Days: Prior Verbal Notification: Recipient Understood Notice: Yes Recipient Signature: Yes Med Rec Note Co-signed by Attending: Coverage Notice Comment: Last DP export: 06/11/18 12:49 p Patient Name: Zuhair GOINS Page [phone] at 1357 All edits/amendments must be made on the electronic document DICTATION DATE: 06/11/18 1356 RUBBERIZING MECHANIC: RIO 06/11/18 1356 RPT#: [id number] DC DATE: STATUS: ADM IN [facility] [address] [place] [address] END OF REPORT
--- NOTE | 2018-06-11 14:05 | MORECARE ---
CASE MANAGEMENT DISCHARGE SUMMARY PATIENT: Zuhair GOINS JR UNIT: [id number] ADM DATE: 06/05/18 AGE: 83 : 34 SEX: M ROOM/BED: D.2135 AUTHOR: ALY,DOC PHYSICIAN: REFERRING PHYSICIAN: JAYNE HANKS MD DATE OF SERVICE: 06/11/18 Discharge Plan Patient Name: Zuhair GOINS Facility: [facility]:[place] : 1935 Planned Disposition: Home with Home Health Anticipated Discharge Date: 06/11/18 Discharge Date: Expected LOS: 6 Initial Reviewer: [email or web address] Initial Review Date: 06/05/2018 Generated: 06/11/18 3:05 pm Comments DCP- Discharge Planning Updated by [email or web address]: Jose Alejandro Stein on 06/11/18 1:[address] Patient Name: Zuhair GOINS Admission Status: ER Accout number: [id number] Admission Date: 06-05-2018 : 1935 Admission Diagnosis:SHORTNESS OF BREATH Attending: JAYNE HANKS Current LOS: 6 Anticipated DC Date: 06-11-2018 Planned Disposition: Home with Home Health Primary Insurance: MEDICARE A & B PLANNED EXTERNAL PROVIDER: [facility] Discharge Planning Comments: CM RECEIVED ORDER FOR HOME HEALTH, MET WITH PT IN ROOM TO DISCUSS DISCHARGE PLANNING AND NEEDS. PT REPORTS LIVING AT HOME INDEPENDENTLY WITH SPOUSE AND REPORTS HAVING ASSISTANCE OF FAMILY IF NEEDED. PT HAS CANE, NEBULIZER, HOME AND PORTABLE OXGYEN, SHOWER CHAIR AND WALKER FROM [facility]. PT HAS PERSONAL CARE THROUGHT [facility] [place], THEY COME 5 DAYS PER WEEK TO "LISTEN TO MY HEART AND KEEP ME COMPANY". CM DISCUSSED AVAILABILITY OF HOME HEALTH, REHAB SERVICES AND MEDICAL EQUIPMENT. PT DENIES REHAB PLACEMENT AND EQUIPMENT NEEDS, REPORTS HE WILL ACCEPT HOME HEALTH WITH ANY COMPANY, CHOICE LISTING PROVIDED, CHOICE LETTER SIGNED. PT REPORTS ONE OF HIS SONS WILL PICK HIM UP FOR DISCHARGE HOME TODAY. IMPORTANT MESSAGE FROM MEDICARE PROVIDED AND EXPLAINED. PT'S SON CALLED WHILE CM WAS IN THE ROOM, PT ASKED CM TO ANSWER THE PHONE, CM IDENTIFIED SELF TO PT'S SON WHO WAS UNDERSTANDING THAT PT IS [facility] HOME TODAY AND WISHED PT WOULD GO TO REHAB. CM EXPLAINED THAT CM WOULD BE HAPPY TO ARRANGE IF PT AGREES. PT'S SON SPOKE TO PT FOR A SHORT TIME. PT HUNG UP THE PHONE AND INFORMED CM THAT HE DID NOT CHANGE HIS MIND, PT REPORTS HE IS GONG HOME AND CM CAN SET UP THE NURSE AND THERAPY FOR THE HOUSE. PT REPORTS HIS FAMILY WILL BE PICKING HIM UP LATER TODAY. CM CALLED [facility], [phone], SPOKE TO KLEVER AND PROVIDED REFERRAL INFORMATION, FAXED REFERRAL TO CARE AT [phone]. TRUST ACCOUNTS SUPERVISOR NURSE AND PT NOTIFIED. PT DENIES FURTHER DISCHARGE NEEDS. Manager Poker: Jose Alejandro Stein DCPIA - Discharge Planning Initial Assessment Updated by [email or web address]: Jose Alejandro Stein on 06/11/18 1:52 pm * Is the patient Alert and Oriented? Yes * How many steps to enter\\exit or inside your home? NONE * PCP DR. POOLE * Pharmacy [facility] [place] * Preadmission Environment Home with Family * ADLs Independent * Equipment Cane Nebulizer Oxygen Shower Chair Walker * Other Equipment HOME AND PORTABLE OXYGEN [facility] - MEDICAL EQUIPMENT PROVIDER * List name and contact numbers for known caregivers / representatives who currently or will assist patient after discharge: DANTE GOINS, SPOUSE, * Verbal permission to speak to the caregivers and representatives has been obtained from the patient. N/A * Community resources currently utilized Private Duty Care * Please name any agencies selected above. [facility] [place], 5 DAYS PER WEEK, COUPLE OF HOURS PER DAY [facility] [place] * Additional services required to return to the preadmission environment? Yes * Can the patient safely return to the preadmission environment? Yes * Has this patient been hospitalized within the prior 30 days at any hospital? No Coverage Notice Reviewer: [email or web address] Kathi Stein Notice Issued Date-Time: 06/11/2018 12:15 Notice Type: Patient Choice Letter Notice Delivered To: Patient Relationship to Patient: Livestock Commission Agent Name: Delivery Method: HAND - Hand Delivered Maisha Days: Prior Verbal Notification: Recipient Understood Notice: Yes Recipient Signature: Yes Med Rec Note Co-signed by Attending: Coverage Notice Comment: ANY HOME HEALTH AGENCY Reviewer: [id number] Kathi Stein Notice Issued Date-Time: 06/11/2018 12:20 Notice Type: IM Discharge Notice Notice Delivered To: Patient Relationship to Patient: Livestock Commission Agent Name: Delivery Method: HAND - Hand Delivered Maisha Days: Prior Verbal Notification: Recipient Understood Notice: Yes Recipient Signature: Yes Med Rec Note Co-signed by Attending: Coverage Notice Comment: Last DP export: 06/11/18 12:57 p Patient Name: Zuhair GOINS Page [phone] at 1405 All edits/amendments must be made on the electronic document DICTATION DATE: 06/11/181403 DATA ANALYTICS ARCHITECT: RIO 06/11/181403 RPT#: [id number] DC DATE: STATUS: ADM IN [facility] [address] [place] [address] END OF REPORT
--- NOTE | 2018-06-11 16:01 | NUR ---
REMOVED THE PATIENTS FROM THE RIGHT FOREARM. INFORMED THE TRANSCRIPTION COORDINATOR OF THE PATIENTS NEED FOR OXYGEN TO TRANSPORT HOME WITH, HE IS ON 3.5LPM. RESP ORDER PUT IN FOR WALK STUDY, VIBHA WAS TO INFORM THE RT.
--- NOTE | 2018-06-11 16:07 | MORECARE ---
CASE MANAGEMENT DISCHARGE SUMMARY PATIENT: Zuhair GOINS JR UNIT: [id number] ADM DATE: 06/05/18 AGE: 83 : 34 SEX: M ROOM/BED: D.2132 AUTHOR: ALY,DOC PHYSICIAN: REFERRING PHYSICIAN: JAYNE HANKS MD DATE OF SERVICE: 06/11/18 Discharge Plan Patient Name: Zuhair GOINS Facility: [facility]:[place] : 1935 Planned Disposition: Home with Home Health Anticipated Discharge Date: 06/11/18 Discharge Date: Expected LOS: 6 Initial Reviewer: [id number] Initial Review Date: 06/05/2018 Generated: 06/11/18 5:07 pm Comments DCP- Discharge Planning Updated by [email or web address]: Jose Alejandro Stein on 06/11/18 3:[address] Patient Name: Zuhair GOINS Encounter No: [id number] : 1935 Primary Insurance: MEDICARE A & B Anticipated DC Date: 06-11-2018 Planned Disposition: Home with Home Health External Planned Provider: [facility] DCP follow-up note: RADHA RECEIVED CALL FROM [facility] TO CHECK ON EXISTING [facility] PATIENTS IN THE HOSPITAL. PT AND HIS SPOUSE ARE BOTH EXISTING [facility]UST[employer]ERS OF [facility]. CM SPOKE TO PT IN ROOM WHO REMEMBERS THAT [facility] IS HIS AND HIS WIFES HOME HEALTH COMPANY. PT'S NURSE INFORMED CM THAT PT'S FAMILY DID NOT BRING OXYGEN TO PICK HIM UP TODAY AND PT IS ON 4LITERS NASAL CANNULA. RADHA CALLED [facility], , SPOKE TO WESLEY WHO VERIFIED PT IS ACTIVE WITH HOME AND PORTABLE OXYGEN, LAST TESTING INDICATED NEED OF 2LITERS AND IF PT IS GOING HOME ON 4 LITERS, HE WILL NEED NEW OXYGEN TESTING. [facility] WILL BRING PORTABLE OXYGEN TO PT'S ROOM CAPABLE OF 4 LITERS TODAY FOR DISCHARGE HOME. BEDSIDE NURSE NOTIFIED, ORDERS RECEIVED FOR OXYGEN TESTING. RESPIRATORY THERAPIST EDWARD NOTIFIED. RADHA FAXED HOME HEALTH REFERRAL AND DISCHARGE INFORMATION TO [employer] [facility] AT [phone]. [facility] TO DELIVER PORTABLE OXYGEN TO PT'S ROOM FOR DISCHARGE HOME SHORTLY. [facility] TO RESUME PT'S HOME HEALTH CARE TOMORROW. Jose Alejandro Stein CASE MANAGEMENT DCP- Discharge Planning Updated by [id number]: Jose Alejandro Stein on 06/11/18 1:[address] Patient Name: Zuhair GOINS Admission Status: ER Accout number: [id number] Admission Date: 06-05-2018 : 1935 Admission Diagnosis:SHORTNESS OF BREATH Attending: JAYNE HANKS Current LOS: 6 Anticipated DC Date: 06-11-2018 Planned Disposition: Home with Home Health Primary Insurance: MEDICARE A & B PLANNED EXTERNAL PROVIDER: [facility] Discharge Planning Comments: CM RECEIVED ORDER FOR HOME HEALTH, MET WITH PT IN ROOM TO DISCUSS DISCHARGE PLANNING AND NEEDS. PT REPORTS LIVING AT HOME INDEPENDENTLY WITH SPOUSE AND REPORTS HAVING ASSISTANCE OF FAMILY IF NEEDED. PT HAS CANE, NEBULIZER, HOME AND PORTABLE OXGYEN, SHOWER CHAIR AND WALKER FROM [facility]. PT HAS PERSONAL CARE THROUGHT [facility] ON [place], THEY COME 5 DAYS PER WEEK TO "LISTEN TO MY HEART AND KEEP ME COMPANY". CM DISCUSSED AVAILABILITY OF HOME HEALTH, REHAB SERVICES AND MEDICAL EQUIPMENT. PT DENIES REHAB PLACEMENT AND EQUIPMENT NEEDS, REPORTS HE WILL ACCEPT HOME HEALTH WITH ANY COMPANY, CHOICE LISTING PROVIDED, CHOICE LETTER SIGNED. PT REPORTS ONE OF HIS SONS WILL PICK HIM UP FOR DISCHARGE HOME TODAY. IMPORTANT MESSAGE FROM MEDICARE PROVIDED AND EXPLAINED. PT'S SON CALLED WHILE CM WAS IN THE ROOM, PT ASKED CM TO ANSWER THE PHONE, CM IDENTIFIED SELF TO PT'S SON WHO WAS UNDERSTANDING THAT PT IS [facility] TODAY AND WISHED PT WOULD GO TO REHAB. CM EXPLAINED THAT CM WOULD BE HAPPY TO ARRANGE IF PT AGREES. PT'S SON SPOKE TO PT FOR A SHORT TIME. PT HUNG UP THE PHONE AND INFORMED CM THAT HE DID NOT CHANGE HIS MIND, PT REPORTS HE IS [facility] HOME AND CM CAN SET UP THE NURSE AND THERAPY FOR THE HOUSE. PT REPORTS HIS FAMILY WILL BE PICKING HIM UP LATER TODAY. CM CALLED [facility], [phone], SPOKE TO KLEVER AND PROVIDED REFERRAL INFORMATION, FAXED REFERRAL TO [facility] AT [phone]. PHP ENGINEER NURSE AND PT NOTIFIED. PT DENIES FURTHER DISCHARGE NEEDS. Nutrition Worker: Jose Alejandro Stein DCPIA - Discharge Planning Initial Assessment Updated by [email or web address]: Jose Alejandro Stein on 06/11/18 1:52 pm * Is the patient Alert and Oriented? Yes * How many steps to enter\\exit or inside your home? NONE * PCP DR. POOLE * [facility] [place] * Preadmission Environment Home with Family * ADLs Independent * Equipment Cane Nebulizer Oxygen Shower Chair Walker * Other Equipment HOME AND PORTABLE OXYGEN [facility] - MEDICAL EQUIPMENT PROVIDER * List name and contact numbers for known caregivers / representatives who currently or will assist patient after discharge: DANTE GOINS, SPOUSE, * Verbal permission to speak to the caregivers and representatives has been obtained from the patient. N/A * Community resources currently utilized Private Duty Care * Please name any agencies selected above. [facility] ON [place], 5 DAYS PER WEEK, COUPLE OF HOURS PER DAY [facility] * Additional services required to return to the preadmission environment? Yes * Can the patient safely return to the preadmission environment? Yes * Has this patient been hospitalized within the prior 30 days at any hospital? No External Providers [facility] Next Contact Date: 06/11/2018 Service Request Date: Service Type: Resolution: Reviewer: Comments: Coverage Notice Reviewer: [id number] Stein Notice Issued Date-Time: 06/11/2018 12:15 Notice Type: Patient Choice Letter Notice Delivered To: Patient Relationship to Patient: Advisory Application Developer Name: Delivery Method: HAND - Hand Delivered Maisha Days: Prior Verbal Notification: Recipient Understood Notice: Yes Recipient Signature: Yes Med Rec Note Co-signed by Attending: Coverage Notice Comment: ANY HOME HEALTH AGENCY Reviewer: [id number] Stein Notice Issued Date-Time: 06/11/2018 12:20 Notice Type: IM Discharge Notice Notice Delivered To: Patient Relationship to Patient: Advisory Application Developer Name: Delivery Method: HAND - Hand Delivered Maisha Days: Prior Verbal Notification: Recipient Understood Notice: Yes Recipient Signature: Yes Med Rec Note Co-signed by Attending: Coverage Notice Comment: Last DP export: 06/11/18 1:05 p Patient Name: Zuhair GOINS Page [phone] at 1607 All edits/amendments must be made on the electronic document DICTATION DATE: 06/11/181605 GAS PLUMBER: RIO 06/11/181605 RPT#: [id number] DC DATE: STATUS: ADM IN [facility] [address] [place] [address] END OF REPORT
--- NOTE | 2018-06-11 17:04 | NUR ---
ASSISTED THE PATIENT DOWNSTAIRS VIA WHEELCHAIR FOR DISCHARGE, PATIENTS GRANDSON DRIVING. ALL PERSONAL BELONGINGS PACKED UP AND SENT WITH THE PATIENT
== END 2018-06-11 17:05 | disposition home health service (06) | DRG 189 ==
LOC: D.ER 16:05 → D.M2 20:59
PROVIDERS: Emergency Medicine; Family Medicine; Internal Medicine Nephrology; ADMIT Family Medicine
DX: J96.21 Acute and chronic respiratory failure with hypoxia (principal); J18.9 Pneumonia, unspecified organism; J44.1 Chronic obstructive pulmonary disease with (acute) exacerbation; N17.9 Acute kidney failure, unspecified; F17.213 Nicotine dependence, cigarettes, with withdrawal; E87.0 Hyperosmolality and hypernatremia; Z68.1 Body mass index [BMI] 19.9 or less, adult; Z99.81 Dependence on supplemental oxygen; I25.10 Atherosclerotic heart disease of native coronary artery without angina pectoris; I11.0 Hypertensive heart disease with heart failure; I50.9 Heart failure, unspecified; D64.9 Anemia, unspecified; K21.9 Gastro-esophageal reflux disease without esophagitis; E55.9 Vitamin D deficiency, unspecified; G47.36 Sleep related hypoventilation in conditions classified elsewhere

== ENCOUNTER 2018-06-13 21:03 | Inpatient (IN) | payer MEDICARE, BC ==
[~2018-06-13] VITALS: Ht 177.8 cm; Wt 50.3 kg
[~2018-06-13 21:03] MED LIST changes: +TOPROL XL50 MG PO
[2018-06-13 21:45] LABS: BASOPHILS 0 % (0-2); EOSINOPHILS 0 % (0-7); HEMATOCRIT 30.1 % (42.0-54.0); HEMOGLOBIN 9.6 g/dL (13.5-17.5); IMMATURE GRANULOCYTES 0.5 % (0-5); LYMPHOCYTES 1.6 % (15-50); MCH 29.5 pg (26.0-34.0); MCHC 31.9 g/dL (31.0-37.0); MCV 92.6 fL (80.0-100.0); MEAN PLATELET VOLUME 10.3 fL (7.4-10.4); MONOCYTES 2.7 % (2-11); NEUTROPHILS 95.2 % (40-80); RBC 3.25 10x6/uL (4.20-6.10); RDW 14.9 % (11.5-14.5); WBC 14.8 10x3/uL (4.8-10.8)
[2018-06-13 21:48] LABS: PLATELET COUNT 373 10x3/uL (130-400)
[2018-06-13 21:56] LABS: APTT 23.5 SECONDS (22.8-39.4); INR 1.03 (0.85-1.17)
[2018-06-13 22:05] LABS: ALBUMIN 2.9 g/dL (3.4-5.0); ALKALINE PHOSPHATASE 44 U/L (46-116); ALT (SGPT) 48 U/L (10-68); BILIRUBIN - TOTAL 0.21 mg/dL (0.2-1.3); CALC OSMOLALITY 294 mosm/kg (275-300); CALCIUM 8.3 mg/dL (8.5-10.1); CARBON DIOXIDE 31.5 mmol/L (21.0-32.0); CHLORIDE - SERUM 106 mmol/L (98-107); CREATININE - SERUM 1.5 mg/dL (0.6-1.3); GLUCOSE 124 mg/dL (74-106); POTASSIUM - SERUM 4.5 mmol/L (3.5-5.1); PROTEIN - SERUM 6.1 g/dL (6.4-8.2); SODIUM 144 mmol/L (136-145); UREA NITROGEN 31 mg/dL (7-18); eGFR NON AFRICAN AMERICAN 47 mL/min (90-120)
--- NOTE | 2018-06-13 22:19 | NUR ---
PT GIVEN URINAL
[2018-06-13 22:22] LABS: CKMB 2.8 U/L (0.0-3.6); CREATINE KINASE 57 UL (21-232); MAGNESIUM - SERUM 1.9 mg/dL (1.8-2.4); PRO BNP 3878 pg/mL (0-450)
[2018-06-13 22:29] LABS: TROPONIN-I 0.221 ng/mL (0.000-0.060)
--- NOTE | 2018-06-13 23:33 | NUR ---
PLAN OF CARE DISCUSSED WITH PT, PT VERBALIZES UNDERSTANDING, DENIES ANY NEEDS AT THIS TIME. FAMILY AT BEDSIDE. WILL CONTINUE TO MONITOR.
--- NOTE | 2018-06-13 23:50 | NUR ---
[id number] REPORT FROM BRONSON IN ER
--- NOTE | 2018-06-14 00:15 | NUR ---
RECIEVED FROM ER VIA HOSPITAL BED FAMILY @BEDSIDE PT HAS LFT FA 20 GAUGE SL V/S WNL 2 + EDEMA IN BILATERAL FEET, PT HAS NITRO PATCH TO RT SIDE CHEST , NO C/O OF PAIN OR DISTRESS AT THIS TIME CALL LIGT IN REACH
[2018-06-14 04:00] VITALS: BP 164/76
--- NOTE | 2018-06-14 07:30 | NUR ---
ALERT AND ORIENTED. HARD OF HEARING. TELEMERY SHOWS SR. O2 AT 3 L/M PER NC. LEFT AC SL. FAMILY AT BEDSIDE. SR UP WITH CALL LIGHT IN REACH. WILL MONITOR
[2018-06-14 07:58] VITALS: BP 167/86
--- NOTE | 2018-06-14 09:23 | NUR ---
RESP UL ON . STUDENT AT BS ASSISTING WITH NEEDS. WILL CONT. PLAN OF CARE.
[2018-06-14 11:33] VITALS: BP 150/68
[2018-06-14 12:20] VITALS: BMI 18.6
[2018-06-14 15:14] VITALS: BP 175/74
[2018-06-14 15:25] VITALS: Ht 177.8 cm; Wt 50.3 kg
--- NOTE | 2018-06-14 16:51 | MORECARE ---
CASE MANAGEMENT DISCHARGE SUMMARY PATIENT: Zuhair GOINS JR UNIT: [id number] ADM DATE: 06/13/18 AGE: 83 : 34 SEX: M ROOM/BED: D.2122 AUTHOR: ROGER LU PHYSICIAN: REFERRING PHYSICIAN: JAMES TREVIÑO MD DATE OF SERVICE: 06/14/18 Discharge Plan Patient Name: Zuhair GOINS [facility] [facility] 1935 Planned Disposition: Anticipated Discharge Date: Discharge Date: Expected LOS: Initial Reviewer: [id number] Initial Review Date: 06/14/2018 Generated: 06/14/18 5:51 pm Coverage Notice Reviewer: [id number] - Gabby Corado Notice Issued Date-Time: 06/14/2018 16:25 Notice Type: Medicare Outpatient Observation Notice Notice Delivered To: Patient Relationship to Patient: Self Electrical Software Engineer Name: Delivery Method: HAND - Hand Delivered Maisha Days: Prior Verbal Notification: Recipient Understood Notice: Yes Recipient Signature: Yes Med Rec Note Co-signed by Attending: Coverage Notice Comment: DISCUSSED THE MCCRARY WITH PATIENT AND HIS DANTE, AFTER VERBAL CONSENT RECEIVED. Patient Name: Zuhair GOINS Page [phone] at 1651 All edits/amendments must be made on the electronic document DICTATION DATE: 06/14/18 165 LAUNDRY LABORER: RIO 06/14/181650 RPT#: [id number] DC DATE: STATUS: ADM IN [facility] [address] [place] [address] END OF REPORT
--- NOTE | 2018-06-14 18:25 | NUR ---
LYING QUIETLY. DENIES ANY NEEDS .TELEMERTY SHOWS SR. WILL MONITOR
--- NOTE | 2018-06-14 19:42 | NUR ---
RESUMING PATIENT CARE. PATIENT IS ALERT AND ORIENTED. RESTING COMFORTABLY IN BED. ALL NEEDS MET AT THIS TIME. NO S/S OF DISTRESS. NO C/O PAIN. CALL LIGHT WITHIN REACH. AT BEDSIDE SHE WILL BE PICKED UP BY DAUGHTER. WILL CPOC.
[2018-06-14 20:00] VITALS: BP 165/87
--- NOTE | 2018-06-14 20:15 | NUR ---
DAUGHTER DANTE WAS INFORMED THAT HER MOTHER NEEDS TO BE PICKED UP BY 1600 DAILY PER WIRE DRAWER. DAUGHTER IS IN AGREEMENT
[2018-06-15] VITALS: BP 160/80
[2018-06-15 04:00] VITALS: BP 137/66
--- NOTE | 2018-06-15 07:25 | NUR ---
ASSESSMENT COMPLETED. ALERT AND ORIENTED. O2 AT 3 L/M PER NC. LEFT AC SL. TELEMERTY SHOWS SR. 1 PLUS EDEMA TO FEET. SR UP WITH CALL LIGHT IN REACH. FAMILY AT BEDSIDE
[2018-06-15 09:13] VITALS: BP 140/65
--- NOTE | 2018-06-15 11:00 | NUR ---
RESTING QUIETLY NAD NOTED
[2018-06-15 12:30] VITALS: BP 122/63
--- NOTE | 2018-06-15 12:44 | NUR ---
REHAB PRESCREENING Rehab referral received and chart reviewed. PT evaluation has been ordered and is pending. Rehab will follow this patient for admission criteria. Thank you for this referral! Lisa Kc, LOT ASSOCIATE Rehab Ehs Engineer
[2018-06-15 13:47] LABS: ANION GAP 11.2 mmol/L (8-16); CALCIUM 9.2 mg/dL (8.5-10.1); CARBON DIOXIDE 36.9 mmol/L (21.0-32.0); CREATININE - SERUM 1.7 mg/dL (0.6-1.3); POTASSIUM - SERUM 4.1 mmol/L (3.5-5.1)
[2018-06-15 13:49] LABS: BASOPHILS 0.1 % (0-2); EOSINOPHILS 1.7 % (0-7); HEMATOCRIT 33.5 % (42.0-54.0); HEMOGLOBIN 10.6 g/dL (13.5-17.5); IMMATURE GRANULOCYTES 0.3 % (0-5); LYMPHOCYTES 9.5 % (15-50); MCH 29.5 pg (26.0-34.0); MCHC 31.6 g/dL (31.0-37.0); MCV 93.3 fL (80.0-100.0); MEAN PLATELET VOLUME 10.4 fL (7.4-10.4); NEUTROPHILS 79.4 % (40-80); RBC 3.59 10x6/uL (4.20-6.10); RDW 14.9 % (11.5-14.5); WBC 12.4 10x3/uL (4.8-10.8)
[2018-06-15 13:54] LABS: PLATELET COUNT 461 10x3/uL (130-400)
--- NOTE | 2018-06-15 17:07 | MORECARE ---
CASE MANAGEMENT DISCHARGE SUMMARY PATIENT: Zuhair GOINS JR UNIT: [id number] ADM DATE: 06/15/18 AGE: 83 : 34 SEX: M ROOM/BED: D.2121 AUTHOR: ROGER LU PHYSICIAN: REFERRING PHYSICIAN: JAMES TREVIÑO MD DATE OF SERVICE: 06/15/18 Discharge Plan Patient Name: [facility]uhair GOINS [facility] : 1935 Planned Disposition: Inpatient Rehab Anticipated Discharge Date: Discharge Date: Expected LOS: Initial Reviewer: [id number] Initial Review Date: 06/14/2018 Generated: 06/15/18 6:07 pm Coverage Notice Reviewer: [id number] - Gabby Hartwick Notice Issued Date-Time: 06/14/2018 16:25 Notice Type: Medicare Outpatient Observation Notice Notice Delivered To: Patient Relationship to Patient: Self Rn Palliative Care Name: Delivery Method: HAND - Hand Delivered Maisha Days: Prior Verbal Notification: Recipient Understood Notice: Yes Recipient Signature: Yes Med Rec Note Co-signed by Attending: Coverage Notice Comment: DISCUSSED THE MCCRARY WITH PATIENT AND HIS DANTE, AFTER VERBAL CONSENT RECEIVED. Last DP export: 06/14/18 3:51 p Patient Name: Zuhair GOINS Page [phone] at 1707 All edits/amendments must be made on the electronic document DICTATION DATE: 06/15/181705 AUTO GLASS TECHNICIAN: RIO 06/15/181705 RPT#: [id number] DC DATE: STATUS: ADM IN [facility] [address] [place] [address] END OF REPORT
--- NOTE | 2018-06-15 17:14 | MORECARE ---
CASE MANAGEMENT DISCHARGE SUMMARY PATIENT: Zuhair GOINS JR UNIT: [id number] ADM DATE: 06/15/18 AGE: 83 : 34 SEX: M ROOM/BED: D.4231 AUTHOR: ALYDOC PHYSICIAN: REFERRING PHYSICIAN: JAMES TREVIÑO MD DATE OF SERVICE: 06/15/18 Discharge Plan Patient Name: Zuhair GOINS Facility: [facility]:[place] : 1935 Planned Disposition: Inpatient Rehab Anticipated Discharge Date: Discharge Date: Expected LOS: Initial Reviewer: [id number] Initial Review Date: 06/14/2018 Generated: 06/15/18 6:13 pm Comments DCP- Discharge Planning Updated by [email or web address]: Jose Alejandro Davis on 06/15/18 4:[address] Patient Name: Zuhair GOINS Admission Status: ER Accout number: [id number] Admission Date: 06-15-2018 : 1935 Admission Diagnosis: Attending: JAMES TREVIÑO Current LOS: 1 Anticipated DC Date: Planned Disposition: Inpatient Rehab Primary Insurance: MEDICARE A & B Discharge Planning Comments: CM RECEIVED ORDER FOR INPATIENT REHAB PRESCREENING. CM MET WITH PT IN ROOM TO DISCUSS DISCHARGE PLANNING AND NEEDS. PT REPORTS LIVING AT HOME INDEPENDENTLY WITH HIS PT HAS CANE, WALKER, NEBULIZER, SHOWER CHAIR AND HOME / PORTABLE OXGYEN FROM [facility]. PT HAS [employer] [facility] FOR [facility] ADN THERAPY. CM DISCUSSED AVAILABILITY OF HOME HEALTH, REHAB SERVICES AND MEDICAL EQUIPMENT. PT REPORTS FAMILY HAVE BEEN WORKING ON REHAB AT [place] BUT HE MIGHT STAY AT [place] FOR REHAB FIRST. PT WANTS CM TO CALL HIS SON,MAMADOU. CM CALLED MAMADOU FROM PT'S ROOM, . MAMADOU REPORTS THEY ARE WORKING ON REHAB AND EVENTUAL PLACEMENT OF PT AND HIS SPOUSE AT THE ASSISTED LIVING [facility] FROM [facility] AND [facility]. CM DISCUSSED INPATIENT REHAB ORDER, PROVIDERS AND LOCATIONS. MAMADOU IS IN AGREEMENT WITH REHAB AT [place] IF IT IS OK WITH PT. PT IN AGREEMENT WITH REHAB AT [place] HE FEELS HE COULD USE A LITTLE MORE TIME WITH MEDICAL TREATMENT PRIOR TO GOING ANYWHERE ELSE. IMPORTANT MESSAGE FROM MEDICARE PROVIDED AND EXPLAINED. CM NOTIFIED ELIAN OF INPATIENT REHAB AT [place] OF PT'S AND FAMILY DECISION. REHAB TO SCREEN FOR ADMISSION.. CM WAITING SCREENING AND ADMISSION DETERMINATION BY [facility] INPATIENT REHAB. JOSE ALEJANDRO DAVIS, CASE MANAGEMENT Coverage Notice Reviewer: [id number] Kathi Gabbydarius Corado Notice Issued Date-Time: 06/14/2018 16:25 Notice Type: Medicare Outpatient Observation Notice Notice Delivered To: Patient Relationship to Patient: Self Employment Case Manager Name: Delivery Method: HAND - Hand Delivered Maisha Days: Prior Verbal Notification: Recipient Understood Notice: Yes Recipient Signature: Yes Med Rec Note Co-signed by Attending: Coverage Notice Comment: DISCUSSED THE MCCRARY WITH PATIENT AND HIS DANTE, AFTER VERBAL CONSENT RECEIVED. Reviewer: [id number] - Jose Alejandro Davis Notice Issued Date-Time: 06/15/2018 15:40 Notice Type: IM Discharge Notice Notice Delivered To: Patient Relationship to Patient: Employment Case Manager Name: Delivery Method: HAND - Hand Delivered Maisha Days: Prior Verbal Notification: Recipient Understood Notice: Yes Recipient Signature: Yes Med Rec Note Co-signed by Attending: Coverage Notice Comment: Last DP export: 06/15/18 4:07 p Patient Name: Zuhair GOINS Page [phone] at 1714 All edits/amendments must be made on the electronic document DICTATION DATE: 06/15/181712 INSTRUMENT PROCESSING TECH: RIO 06/15/181712 RPT#: [id number] DC DATE: STATUS: ADM IN [facility] [address] [place] [address] END OF REPORT
[2018-06-15 17:39] VITALS: BP 132/65
[2018-06-15 20:00] VITALS: BP 125/66
--- NOTE | 2018-06-15 20:00 | NUR ---
PT RESTING IN BED COMFTORBLY. RR-EVEN AND UNLABORED. PT DENIES ANY PAIN OR NEEDS AT THIS TIME. BED LOW CALL LIGHT WITHIN REACH. WILL CONTINUE TO MONITOR.
[2018-06-16] VITALS (7 sets, daily range): BP systolic 108–137; BP diastolic 49–66
--- NOTE | 2018-06-16 04:16 | NUR ---
RESTING IN BED WITH EYES CLOSED. NO S/S OF DISTRESS OBSERVED. CALL LIGHT IN REACH.
[2018-06-16 05:38] LABS: BASOPHILS 0 % (0-2); EOSINOPHILS 2.2 % (0-7); HEMATOCRIT 32.5 % (42.0-54.0); HEMOGLOBIN 10.4 g/dL (13.5-17.5); IMMATURE GRANULOCYTES 0.3 % (0-5); LYMPHOCYTES 13.1 % (15-50); MCH 29.4 pg (26.0-34.0); MCV 91.8 fL (80.0-100.0); MEAN PLATELET VOLUME 10.4 fL (7.4-10.4); MONOCYTES 9.1 % (2-11); NEUTROPHILS 75.3 % (40-80); PLATELET COUNT 413 10x3/uL (130-400); RBC 3.54 10x6/uL (4.20-6.10); RDW 14.7 % (11.5-14.5); WBC 12.3 10x3/uL (4.8-10.8)
[2018-06-16 06:09] LABS: ANION GAP 11.9 mmol/L (8-16); CARBON DIOXIDE 35.6 mmol/L (21.0-32.0); CREATININE - SERUM 1.6 mg/dL (0.6-1.3); POTASSIUM - SERUM 3.5 mmol/L (3.5-5.1)
--- NOTE | 2018-06-16 07:20 | NUR ---
PT IN BED, ASKING FOR HIS URINAL TO BE EMPTIED AT THIS TIME. PT A/OX4 HARD OF HEARING. LT AC SL. RESP EVEN AND NONLABORED ON 3L. PT DENIES ANY OTHER AT THIS TIME. CALL LIGHT IN REACH, NAD NOTED, WILL CONTINUE PLAN OF CARE.
--- NOTE | 2018-06-16 09:06 | NUR ---
AM MEDS GIVEN AT THIS TIME. ALSO GAVE TYLENOL FOR PAIN LEVEL OF 5/10. PT DENIES ANY NEEDS AT THIS TIME, CALL [facility] IN REACH,NAD NOTED, WILLCONTINUE TO MONITOR.
--- NOTE | 2018-06-16 17:47 | NUR ---
LASIX GIVEN ORDERED. PT IN BED EATING DINNER, DENIES ANY NEEDS AT THIS TIME. URINAL EMPTIED AT THIS TIME. CALL LIGHT IN REACH, NAD NOTED, WILL CONTINUE TO MONITOR.
--- NOTE | 2018-06-16 20:00 | NUR ---
PT RESTING IN BED. ALERT/ORIENTED. VERY UPSET OVER NOT BEING ABLE TO SEE HIS WHOM IS DOWNSTAIRS IN THE LONG TERM UNIT. WILL CHECK INTO POLICY FOR PT TO GO SEE HER DURING VISITATION HOURS THIS IS A VERY UPSETTING SITUATION FOR PATIENT. O2 @ 3L/NC WITH NONLABORED RESPIRATIONS. IV TO LEFT A/C HAS PULLED OUT AND IS NO LONGER PATENT. DRESSING APPLIED. WILL RESITE NEW IV.
--- NOTE | 2018-06-17 00:59 | NUR ---
RESTING IN BED WITH NO DISTRESS. MONITOR AND CPOC.
[2018-06-17 03:56] VITALS: BP 108/52
--- NOTE | 2018-06-17 05:41 | NUR ---
NEW IV SITED AND IV LASIX GIVEN. PT RESTING. JOSÉ MIGUEL FRESHENED AND PT HOPING TO BE ABLE TO GO DOWN AND SEE HIS DURING VISITATION TODAY.
[2018-06-17 05:45] LABS: BASOPHILS 0.1 % (0-2); EOSINOPHILS 1.5 % (0-7); HEMATOCRIT 32.1 % (42.0-54.0); HEMOGLOBIN 10.3 g/dL (13.5-17.5); IMMATURE GRANULOCYTES 0.2 % (0-5); MCH 29.3 pg (26.0-34.0); MCHC 32.1 g/dL (31.0-37.0); MCV 91.5 fL (80.0-100.0); MEAN PLATELET VOLUME 10.2 fL (7.4-10.4); MONOCYTES 10.2 % (2-11); PLATELET COUNT 404 10x3/uL (130-400); RBC 3.51 10x6/uL (4.20-6.10); RDW 14.6 % (11.5-14.5)
[2018-06-17 05:54] LABS: ANION GAP 9.8 mmol/L (8-16); CALCIUM 8.8 mg/dL (8.5-10.1); CARBON DIOXIDE 36.8 mmol/L (21.0-32.0); CREATININE - SERUM 1.5 mg/dL (0.6-1.3); POTASSIUM - SERUM 3.6 mmol/L (3.5-5.1)
--- NOTE | 2018-06-17 07:23 | NUR ---
AM ROUNDS- PT RESTING COMFORTALBY IN BED, EASILY AROUSE TO VOICE. PT A/O X4, RESP EVEN BUT A LITTLE SHALLOW ON 2L. LT AC IV SL. MONITOR SHOWING SR 94. PT DENIES ANY NEEDS AT THIS TIME. CALL LIGHT IN REACH, NAD NOTED, WILL CONTINUE PLAN OF CARE.
--- NOTE | 2018-06-17 08:24 | NUR ---
AM MEDS GIVEN AT THIS TIME. PT IN BED, DENIES ANY NEEDS AT THIS TIME. ALSO PROVIDED PT WITH A CUP OF ICE WATER. CALL LIGHT IN REACH, NAD NOTED, WILL CONITNUE TO MONITOR.
[2018-06-17 08:28] VITALS: BP 130/48
[2018-06-17 12:10] VITALS: BP 125/53
--- NOTE | 2018-06-17 12:20 | NUR ---
URINE SAMPLE COLLECTED AND TAKEN TO LAB. PT EATING LUNCH AT THIS TIME. DENIES ANY NEEDS, CALL LIGHT IN REACH,NAD NOTED, WILL CONTINUE TO MONITOR.
[2018-06-17 12:44] LABS: APPEARANCE CLEAR (CLEAR); BILIRUBIN NEGATIVE (NEGATIVE); COLOR YELLOW (YELLOW); GLUCOSE NEGATIVE (NEGATIVE); KETONE NEGATIVE (NEGATIVE); NITRITE NEGATIVE (NEGATIVE); PROTEIN NEGATIVE (NEGATIVE); SPECIFIC GRAVITY 1.005 (1.005-1.020); UROBILINOGEN NORMAL (NORMAL)
--- NOTE | 2018-06-17 16:09 | NUR ---
PT TAKEN DOWN TO DETENTION TO VISIT HIS . NAD NOTED.
--- NOTE | 2018-06-17 17:00 | NUR ---
BROUGHT PT BACK TO ROOM 2121, GAVE MEDS ORDERED. PT DENIES ANY NEEDS AT THIS TIME. CALL LIGHT IN REACH, NAD NOTED.
[2018-06-17 19:50] VITALS: BP 110/57
--- NOTE | 2018-06-17 20:00 | NUR ---
INITIAL ROUNDS AND ASSESSMENT COMPLETED. PT RESTING IN BED WITH NO DISTRESS. USING URINAL WITH GOOD OUTPUT NOTED. SR PER TELEMETRY. O2 @ 2L/NC WITH NONLABORED RESPIRATIONS. SALINE LOCK TO LFA. PT IN BETTER SPIRITS SINCE HE WAS ABLE TO SEE HIS SPOUSE ON [facility] TODAY. POSSIBLE PLANS FOR DISCHARGE TO [facility] PENDING FOR TOMORROW.
--- NOTE | 2018-06-17 20:55 | NUR ---
BEDTIME MEDS GIVEN.
[2018-06-17 23:52] VITALS: BP 118/50
--- NOTE | 2018-06-18 02:37 | NUR ---
PT RESTING IN BED WITH NONLABORED RESPIRATIONS. SR PER TELEMETRY. MONITOR AND CPOC.
[2018-06-18 03:45] VITALS: BP 101/57
--- NOTE | 2018-06-18 06:00 | NUR ---
PT HAS RESTED WELL THIS NIGHT. AM LASIX IV HAS BEEN GIVEN. PT VOICING NO C/O. CONTINUES TO HOPE HE GETS TO GO TO [facility] TODAY. CONTINUES TO BE GLAD HE WAS ABLE TO SEE HIS YESTERDAY AND KNOWS THAT SHE IS OKAY AND IS HOPEFUL THAT SHE WILL BE COMING TO [facility] SOON SHE IS STABILIZED IN RESIDENTIAL. MONITOR, PROVIDE SAFE ENVIRONMENT AND REPORT TO ONCOMING SHIFT.
[2018-06-18 06:27] LABS: BASOPHILS 0 % (0-2); EOSINOPHILS 1.3 % (0-7); HEMATOCRIT 31.7 % (42.0-54.0); HEMOGLOBIN 10.2 g/dL (13.5-17.5); IMMATURE GRANULOCYTES 0.5 % (0-5); LYMPHOCYTES 10.2 % (15-50); MCH 29.1 pg (26.0-34.0); MCHC 32.2 g/dL (31.0-37.0); MCV 90.6 fL (80.0-100.0); MEAN PLATELET VOLUME 10.3 fL (7.4-10.4); MONOCYTES 9.9 % (2-11); NEUTROPHILS 78.1 % (40-80); PLATELET COUNT 373 10x3/uL (130-400); RDW 14.5 % (11.5-14.5); WBC 12.9 10x3/uL (4.8-10.8)
[2018-06-18 06:28] LABS: ANION GAP 9.7 mmol/L (8-16); CALCIUM 8.7 mg/dL (8.5-10.1); CARBON DIOXIDE 34.9 mmol/L (21.0-32.0); CREATININE - SERUM 1.6 mg/dL (0.6-1.3); MAGNESIUM - SERUM 2.2 mg/dL (1.8-2.4); POTASSIUM - SERUM 3.6 mmol/L (3.5-5.1)
--- NOTE | 2018-06-18 07:55 | NUR ---
RESTING QUIETLY. CONCERNED ABOUT WHO IS ADMITTED IN SR. CARE. REASSURED HIM.
[2018-06-18 08:44] VITALS: BP 114/55
--- NOTE | 2018-06-18 10:21 | MORECARE ---
CASE MANAGEMENT DISCHARGE SUMMARY PATIENT: Zuhair GOINS JR UNIT: [id number] ADM DATE: 06/15/18 AGE: 83 : 34 SEX: M ROOM/BED: D.8641 AUTHOR: ALYDOC PHYSICIAN: REFERRING PHYSICIAN: JAMES TREVIÑO MD DATE OF SERVICE: 06/18/18 Discharge Plan Patient Name: Zuhair GOINS Facility: [facility]:[place] : 1935 Planned Disposition: Inpatient Rehab Anticipated Discharge Date: Discharge Date: Expected LOS: Initial Reviewer: [id number] Initial Review Date: 06/14/2018 Generated: 06/18/18 11:21 am Comments DCP- Discharge Planning Updated by [id number]: Jose Alejandro Davis on 06/15/18 4:[address] Patient Name: Zuhair GOINS Admission Status: ER Accout number: [id number] Admission Date: 06-15-2018 : 1935 Admission Diagnosis: Attending: JAMES TREVIÑO Current LOS: 1 Anticipated DC Date: Planned Disposition: Inpatient Rehab Primary Insurance: MEDICARE A & B Discharge Planning Comments: CM RECEIVED ORDER FOR INPATIENT REHAB PRESCREENING. CM MET WITH PT IN ROOM TO DISCUSS DISCHARGE PLANNING AND NEEDS. PT REPORTS LIVING AT HOME INDEPENDENTLY WITH HIS PT HAS CANE, WALKER, NEBULIZER, SHOWER CHAIR AND HOME / PORTABLE OXGYEN FROM [facility]. PT HAS [facility] FOR [facility] ADN THERAPY. CM DISCUSSED AVAILABILITY OF HOME HEALTH, REHAB SERVICES AND MEDICAL EQUIPMENT. PT REPORTS FAMILY HAVE BEEN WORKING ON REHAB AT [place] BUT HE MIGHT STAY AT [place] FOR REHAB FIRST. PT WANTS CM TO CALL HIS SON,MAMADOU. CM CALLED MAMADOU FROM PT'S ROOM, . MAMADOU REPORTS THEY ARE WORKING ON REHAB AND EVENTUAL PLACEMENT OF PT AND HIS SPOUSE AT THE [facility]ED [facility] FROM [facility] AND REHAB. CM DISCUSSED INPATIENT REHAB ORDER, PROVIDERS AND LOCATIONS. MAMADOU IS IN AGREEMENT WITH REHAB AT [place] IF IT IS OK WITH PT. PT IN AGREEMENT WITH REHAB AT [place] HE FEELS HE COULD USE A LITTLE MORE TIME WITH MEDICAL TREATMENT PRIOR TO GOING ANYWHERE ELSE. IMPORTANT MESSAGE FROM MEDICARE PROVIDED AND EXPLAINED. CM NOTIFIED ELIAN OF INPATIENT REHAB AT [place] OF PT'S AND FAMILY DECISION. REHAB TO SCREEN FOR ADMISSION.. CM WAITING SCREENING AND ADMISSION DETERMINATION BY [facility] INPATIENT REHAB. JOSE ALEJANDRO DAVIS, CASE MANAGEMENT External Providers External Provider: [facility] Next Contact Date: 06/18/2018 Service Request Date: Service Type: Resolution: Reviewer: Comments: Coverage Notice Reviewer: [email or web address] Kathi Gabbydarius Corado Notice Issued Date-Time: 06/14/2018 16:25 Notice Type: Medicare Outpatient Observation Notice Notice Delivered To: Patient Relationship to Patient: Self Silversmith Apprentice Name: Delivery Method: HAND - Hand Delivered Maisha Days: Prior Verbal Notification: Recipient Understood Notice: Yes Recipient Signature: Yes Med Rec Note Co-signed by Attending: Coverage Notice Comment: DISCUSSED THE MCCRARY WITH PATIENT AND HIS DANTE, AFTER VERBAL CONSENT RECEIVED. Reviewer: [id number] Kathi Davis Notice Issued Date-Time: 06/15/2018 15:40 Notice Type: IM Discharge Notice Notice Delivered To: Patient Relationship to Patient: Silversmith Apprentice Name: Delivery Method: HAND - Hand Delivered Maisha Days: Prior Verbal Notification: Recipient Understood Notice: Yes Recipient Signature: Yes Med Rec Note Co-signed by Attending: Coverage Notice Comment: Reviewer: [id number] Davis Notice Issued Date-Time: 06/18/2018 10:10 Notice Type: Patient Choice Letter Notice Delivered To: Patient Relationship to Patient: Silversmith Apprentice Name: Delivery Method: HAND - Hand Delivered Maisha Days: Prior Verbal Notification: Recipient Understood Notice: Yes Recipient Signature: Yes Med Rec Note Co-signed by Attending: Coverage Notice Comment: [facility] Reviewer: [id number] Davis Notice Issued Date-Time: 06/18/2018 10:10 Notice Type: IM Discharge Notice Notice Delivered To: Patient Relationship to Patient: Silversmith Apprentice Name: Delivery Method: HAND - Hand Delivered Maisha Days: Prior Verbal Notification: Recipient Understood Notice: Yes Recipient Signature: Yes Med Rec Note Co-signed by Attending: Coverage Notice Comment: Last DP export: 06/15/18 4:14 p Patient Name: Zuhair GOINS Page [phone] at 1021 All edits/amendments must be made on the electronic document DICTATION DATE: 06/18/18 1020 HAND I THERMAL CUTTER: RIO 06/18/18 1020 RPT#: [id number] DC DATE: STATUS: ADM IN [facility] [address] [place] [address] END OF REPORT
--- NOTE | 2018-06-18 10:31 | MORECARE ---
CASE MANAGEMENT DISCHARGE SUMMARY PATIENT: Zuhair GOINS JR UNIT: [id number] ADM DATE: 06/15/18 AGE: 83 : 34 SEX: M ROOM/BED: D.7618 AUTHOR: ALYDOC PHYSICIAN: REFERRING PHYSICIAN: JAMES TREVIÑO MD DATE OF SERVICE: 06/18/18 Discharge Plan Patient Name: Zuhair GOINS Facility: [facility]:[place] : 1935 Planned Disposition: [facility] Facility Anticipated Discharge Date: 06/18/18 Discharge Date: Expected LOS: 3 Initial Reviewer: [id number] Initial Review Date: 06/14/2018 Generated: 06/18/18 11:30 am Comments DCP- Discharge Planning Updated by [id number]: Jose Alejandro Davis on 06/15/18 4:[address] Patient Name: Zuhair GOINS Admission Status: ER Accout number: [id number] Admission Date: 06-15-2018 : 1935 Admission Diagnosis: Attending: JAMES TREVIÑO Current LOS: 1 Anticipated DC Date: Planned Disposition: Inpatient Rehab Primary Insurance: MEDICARE A & B Discharge Planning Comments: CM RECEIVED ORDER FOR INPATIENT REHAB PRESCREENING. CM MET WITH PT IN ROOM TO DISCUSS DISCHARGE PLANNING AND NEEDS. PT REPORTS LIVING AT HOME INDEPENDENTLY WITH HIS PT HAS CANE, WALKER, NEBULIZER, SHOWER CHAIR AND HOME / PORTABLE OXGYEN FROM [facility] [place]. PT HAS [employer] [facility] FOR NURSING ADN THERAPY. CM DISCUSSED AVAILABILITY OF HOME HEALTH, REHAB SERVICES AND MEDICAL EQUIPMENT. PT REPORTS FAMILY HAVE BEEN WORKING ON REHAB AT [place] BUT HE MIGHT STAY AT [place] FOR REHAB FIRST. PT WANTS CM TO CALL HIS SON,MAMADOU. CM CALLED MAMADOU FROM PT'S ROOM, . MAMADOU REPORTS THEY ARE WORKING ON REHAB AND EVENTUAL PLACEMENT OF PT AND HIS SPOUSE AT THE [facility] FROM [facility]. CM DISCUSSED INPATIENT REHAB ORDER, PROVIDERS AND LOCATIONS. MAMADOU IS IN AGREEMENT WITH REHAB AT [facility] [place] IF IT IS OK WITH PT. PT IN AGREEMENT WITH REHAB AT [place] HE FEELS HE COULD USE A LITTLE MORE TIME WITH MEDICAL TREATMENT PRIOR TO GOING ANYWHERE ELSE. IMPORTANT MESSAGE FROM MEDICARE PROVIDED AND EXPLAINED. CM NOTIFIED ELIAN OF INPATIENT REHAB AT [facility] OF PT'S AND FAMILY DECISION. REHAB TO SCREEN FOR ADMISSION.. CM WAITING SCREENING AND ADMISSION DETERMINATION BY [facility] INPATIENT REHAB. JOSE ALEJANDRO DAVIS, CASE MANAGEMENT Coverage Notice Reviewer: [id number] Kathi Gabbydarius Corado Notice Issued Date-Time: 06/14/2018 16:25 Notice Type: Medicare Outpatient Observation Notice Notice Delivered To: Patient Relationship to Patient: Self Weighmaster Lead Name: Delivery Method: HAND - Hand Delivered Maisha Days: Prior Verbal Notification: Recipient Understood Notice: Yes Recipient Signature: Yes Med Rec Note Co-signed by Attending: Coverage Notice Comment: DISCUSSED THE MCCRARY WITH PATIENT AND HIS DANTE, AFTER VERBAL CONSENT RECEIVED. Reviewer: [id number] Kathi Davis Notice Issued Date-Time: 06/18/2018 10:10 Notice Type: Patient Choice Letter Notice Delivered To: Patient Relationship to Patient: Weighmaster Lead Name: Delivery Method: HAND - Hand Delivered Maisha Days: Prior Verbal Notification: Recipient Understood Notice: Yes Recipient Signature: Yes Med Rec Note Co-signed by Attending: Coverage Notice Comment: [facility] Reviewer: [id number] Davis Notice Issued Date-Time: 06/18/2018 10:10 Notice Type: IM Discharge Notice Notice Delivered To: Patient Relationship to Patient: Weighmaster Lead Name: Delivery Method: HAND - Hand Delivered Maisha Days: Prior Verbal Notification: Recipient Understood Notice: Yes Recipient Signature: Yes Med Rec Note Co-signed by Attending: Coverage Notice Comment: Reviewer: DOROTHY Davis Notice Issued Date-Time: 06/15/2018 15:40 Notice Type: IM Discharge Notice Notice Delivered To: Patient Relationship to Patient: Weighmaster Lead Name: Delivery Method: HAND - Hand Delivered Maisha Days: Prior Verbal Notification: Recipient Understood Notice: Yes Recipient Signature: Yes Med Rec Note Co-signed by Attending: Coverage Notice Comment: Last DP export: 06/18/18 9:21 a Patient Name: Zuhair GOINS Page [phone] at 1031 All edits/amendments must be made on the electronic document DICTATION DATE: 06/18/18 1030 HOSE CEMENTER: RIO 06/18/18 1030 RPT#: [id number] DC DATE: STATUS: ADM IN [facility] [address] [place] [address] END OF REPORT
--- NOTE | 2018-06-18 10:39 | MORECARE ---
CASE MANAGEMENT DISCHARGE SUMMARY PATIENT: Zuhair GOINS JR UNIT: [id number] ADM DATE: 06/15/18 AGE: 83 : 34 SEX: M ROOM/BED: D.5402 AUTHOR: ALY,DOC PHYSICIAN: REFERRING PHYSICIAN: JAMES TREVIÑO MD DATE OF SERVICE: 06/18/18 Discharge Plan Patient Name: Zuhair GOINS Facility: [facility]:[place] : 1935 Planned Disposition: Longterm Facility Anticipated Discharge Date: 06/18/18 Discharge Date: Expected LOS: 3 Initial Reviewer: [id number] Initial Review Date: 06/14/2018 Generated: 06/18/18 11:39 am Comments DCP- Discharge Planning Updated by [id number]: Jose Alejandro Davis on 06/18/18 9:[address] Patient Name: Zuhair GOINS Encounter No: [id number] : 1935 Primary Insurance: MEDICARE A & B Anticipated DC Date: 06-18-2018 Planned Disposition: Longterm Facility External [facility] Provider[facility] DCP follow-up note: CM RECEIVED CALL FROM FLORIDALMA PEARSON OF [facility], , WHO INFORMED CM THAT PT AND FAMILY HAVE CHANGED MIND AND NOW WANT TO COME TO [facility]; FLORIDALMA REPORTS SPEAKING TO PT'S SON ON MONDAY AFTERNOON. CM MET WITH PT IN ROOM TO DISCUSS DISCHARGE PLANNING AND NEEDS. PT CONFIRMED THAT HE AND HIS SON HAVE DECIDED TO GO TO [facility] AND REHAB, PT REPORTS HE IS READY AND WANTS TO DISCHARGE TO LONG-TERM TODAY. CHOICE LISTING PROVIDED FOR LONG-TERM FACILITY. CHOICE LETTER SIGNED FOR [facility] REHAB. IMPORTANT MESSAGE FROM MEDICARE PROVIDED AND EXPLAINED. CM [facility] TO [facility] FOR [facility] WITH NOTICE ASKING FOR ADMISSION TODAY; FAXED TO [phone]. CM WAITING ADMISSION DETERMINATION FROM [facility] FOR ADMISSION TODAY. Jose Alejandro Davis CASE KENNETH DCP- Discharge Planning Updated by [id number]: Jose Alejandro Davis on 06/15/18 4:[address] Patient Name: Zuhair GOINS Admission Status: ER Accout number: [id number] Admission Date: 06-15-2018 : 1935 Admission Diagnosis: Attending: JAMES TREVIÑO Current LOS: 1 Anticipated DC Date: Planned Disposition: Inpatient Rehab Primary Insurance: MEDICARE A & B Discharge Planning Comments: CM RECEIVED ORDER FOR INPATIENT REHAB PRESCREENING. CM MET WITH PT IN ROOM TO DISCUSS DISCHARGE PLANNING AND NEEDS. PT REPORTS LIVING AT HOME INDEPENDENTLY WITH HIS PT HAS CANE, WALKER, NEBULIZER, SHOWER CHAIR AND HOME / PORTABLE OXGYEN FROM [facility]. PT HAS [employer] FOR NURSING ADN THERAPY. CM DISCUSSED AVAILABILITY OF HOME HEALTH, REHAB SERVICES AND MEDICAL EQUIPMENT. PT REPORTS FAMILY HAVE BEEN WORKING ON REHAB AT [place] BUT HE MIGHT STAY AT [place] FOR REHAB FIRST. PT WANTS CM TO CALL HIS SON,MAMADOU. CM CALLED MAMADOU FROM PT'S ROOM, . MAMADOU REPORTS THEY ARE WORKING ON REHAB AND EVENTUAL PLACEMENT OF PT AND HIS SPOUSE AT THE [facility] FROM [facility] AND REHAB. CM DISCUSSED INPATIENT REHAB ORDER, PROVIDERS AND LOCATIONS. AMMADOU IS IN AGREEMENT WITH REHAB AT [place] IF IT IS OK WITH PT. PT IN AGREEMENT WITH REHAB AT [place] HE FEELS HE COULD USE A LITTLE MORE TIME WITH MEDICAL TREATMENT PRIOR TO GOING ANYWHERE ELSE. IMPORTANT MESSAGE FROM MEDICARE PROVIDED AND EXPLAINED. CM NOTIFIED ELIAN OF INPATIENT REHAB AT [place] OF PT'S AND FAMILY DECISION. REHAB TO SCREEN FOR ADMISSION.. CM WAITING SCREENING AND ADMISSION DETERMINATION BY [facility] INPATIENT REHAB. JOSE ALEJANDRO DAVIS, CASE MANAGEMENT Coverage Notice Reviewer: [id number] - [facility] Notice Issued Date-Time: 06/14/2018 16:25 Notice Type: Medicare Outpatient Observation Notice Notice Delivered To: Patient Relationship to Patient: Self Sewer Repairer Name: Delivery Method: HAND - Hand Delivered Maisha Days: Prior Verbal Notification: Recipient Understood Notice: Yes Recipient Signature: Yes Med Rec Note Co-signed by Attending: Coverage Notice Comment: DISCUSSED THE MCCRARY WITH PATIENT AND HIS DANTE, AFTER VERBAL CONSENT RECEIVED. Reviewer: [id number] - Jose Alejandro Davis Notice Issued Date-Time: 06/18/2018 10:10 Notice Type: Patient Choice Letter Notice Delivered To: Patient Relationship to Patient: Sewer Repairer Name: Delivery Method: HAND - Hand Delivered Maisha Days: Prior Verbal Notification: Recipient Understood Notice: Yes Recipient Signature: Yes Med Rec Note Co-signed by Attending: Coverage Notice Comment: [facility] Reviewer: [id number] Davis Notice Issued Date-Time: 06/18/2018 10:10 Notice Type: IM Discharge Notice Notice Delivered To: Patient Relationship to Patient: Sewer Repairer Name: Delivery Method: HAND - Hand Delivered Maisha Days: Prior Verbal Notification: Recipient Understood Notice: Yes Recipient Signature: Yes Med Rec Note Co-signed by Attending: Coverage Notice Comment: Reviewer: DOROTHY Davis Notice Issued Date-Time: 06/15/2018 15:40 Notice Type: IM Discharge Notice Notice Delivered To: Patient Relationship to Patient: Sewer Repairer Name: Delivery Method: HAND - Hand Delivered Maisha Days: Prior Verbal Notification: Recipient Understood Notice: Yes Recipient Signature: Yes Med Rec Note Co-signed by Attending: Coverage Notice Comment: Last DP export: 06/18/18 9:30 a Patient Name: Zuhair GOINS Page [phone] at 1039 All edits/amendments must be made on the electronic document DICTATION DATE: 06/18/18 1039 SHIPPING HELPER: RIO 06/18/18 1039 RPT#: [id number] DC DATE: STATUS: ADM IN [facility] [address] [place] [address] END OF REPORT
[2018-06-18 12:02] VITALS: BP 106/53
--- NOTE | 2018-06-18 13:03 | MORECARE ---
CASE MANAGEMENT DISCHARGE SUMMARY PATIENT: Zuhair GOINS JR UNIT: [id number] ADM DATE: 06/15/18 AGE: 83 : 34 SEX: M ROOM/BED: D.5202 AUTHOR: ALY,DOC PHYSICIAN: REFERRING PHYSICIAN: JAMES TREVIÑO MD DATE OF SERVICE: 06/18/18 Discharge Plan Patient Name: Zuhair GOINS Facility: [facility]:[place] : 1935 Planned Disposition: Nursing Home Facility Anticipated Discharge Date: 06/18/18 Discharge Date: Expected LOS: 3 Initial Reviewer: [id number] Initial Review Date: 06/14/2018 Generated: 06/18/18 2:03 pm Comments DCP- Discharge Planning Updated by [id number]: Jose Alejandro Davis on 06/18/18 12:[address] Patient Name: Zuhair GOINS Encounter No: [id number] : 1935 Primary Insurance: MEDICARE A & B Anticipated DC Date: 06-18-2018 Planned Disposition: Nursing Home Facility External Planned Provider: [facility], MEDICARE REHAB BED DCP follow-up note: CM RECEIVED CALL FROM FLORIDALMA PE[facility]SON OF [facility], , WHO INFORMED CM THAT PT AND FAMILY HAVE CHANGED MIND AND NOW WANT TO COME TO [facility]; FLORIDALMA REPORTS SPEAKING TO PT'S SON ON MONDAY AFTERNOON. CM MET WITH PT IN ROOM TO DISCUSS DISCHARGE PLANNING AND NEEDS. PT CONFIRMED THAT HE AND HIS SON HAVE DECIDED TO GO TO [facility] AND REHAB, PT REPORTS HE IS READY AND WANTS TO DISCHARGE TO [facility] TODAY. CHOICE LISTING PROVIDED FOR RETIREMENT FACILITY. CHOICE LETTER SIGNED FOR [facility] REHAB. IMPORTANT MESSAGE FROM MEDICARE PROVIDED AND EXPLAINED. CM FA[facility]ED REFERRAL TO [facility] FOR [facility]HAB PLACEMENT WITH NOTICE ASKING FOR ADMISSION TODAY; FAXED TO [phone]. CM WAITING ADMISSION DETERMINATION FROM [facility] FOR ADMISSION TODAY. Jose Alejandro Davis, CASE MANAGEMENT Appended by Jose Alejandro Davis on 06/18/2018 13:00 SERVICE CENTER ASSISTANT: CM RECEIVED TELEPHONE MESSAGE FROM PT'S DAUGHTER, ANJANA. CM SPOKE TO PT IN ROOM WHO PROVIDED PERMISSION TO DISCUSS HIS CARE, TREATMENT AND DISCHARGE PLANNING WITH HIS DAUGHTER, ANJANA. CM CALLED ANJANA AT [phone] WHO INFORMED CM THAT PT AND FAMILY HAVE DECIDED TO SEND PT TO [facility] SOON POSSIBLE FOR REHAB, NOT TO INPATIENT REHAB AT HOSPITAL. CM EXPLAINED THAT THE RESIDENTIAL HAD CALLED THIS MORNING AND THAT THE PT HAD INSTRUCTED CM TO GET HIM TO [facility] AND THE RESIDENTIAL PLANS TO TAKE PT TODAY FOR REHAB. ANJANA THANKED CM FOR ASSISTANCE, DENIES FURTHER NEEDS. ANJANA IS SICK AND WILL NOT VISIT WITH PT AT THE HOSPITAL AND WILL WAIT UNTIL SHE IS BETTER TO VISIT PT AT [facility] AND [facility]. CM RECEIVED CALL FROM FLORIDALMA OF [facility] WHO INFORMED CM THEY WILL ACCEPT PT TODAY. FOR DISCHARGE, FAX DISCHARGE INFORMATION TO [facility] AT [phone]; NURSE REPORT TO BE CALLED TO [facility] AT [phone]. [facility] TO ARRANGE VAN TRANSPORTATION. JOSE ALEJANDRO DAVIS, CASE MANAGEMENT DCP- Discharge Planning Updated by [id number]: Jose Alejandro Davis on 06/15/18 4:[address] Patient Name: Zuhair GOINS Admission Status: ER Accout number: [id number] Admission Date: 06-15-2018 : 1935 Admission Diagnosis: Attending: JAMES TREVIÑO Current LOS: 1 Anticipated DC Date: Planned Disposition: Inpatient Rehab Primary Insurance: MEDICARE A & B Discharge Planning Comments: CM RECEIVED ORDER FOR INPATIENT REHAB PRESCREENING. CM MET WITH PT IN ROOM TO DISCUSS DISCHARGE PLANNING AND NEEDS. PT REPORTS LIVING AT HOME INDEPENDENTLY WITH HIS PT HAS CANE, WALKER, NEBULIZER, SHOWER CHAIR AND HOME / PORTABLE OXGYEN FROM [facility]. PT HAS [employer] [facility] FOR NURSING ADN THERAPY. CM DISCUSSED AVAILABILITY OF HOME HEALTH, REHAB SERVICES AND MEDICAL EQUIPMENT. PT REPORTS FAMILY HAVE BEEN WORKING ON REHAB AT [facility] BUT HE MIGHT STAY AT [facility] FOR REHAB FIRST. PT WANTS CM TO CALL HIS SON,MAMADOU. CM CALLED MAMADOU FROM PT'S ROOM, . MAMADUO REPORTS THEY ARE WORKING ON REHAB AND EVENTUAL PLACEMENT OF PT AND HIS SPOUSE AT THE [facility] LIVING DOWN THE [place] FROM [facility]. CM DISCUSSED INPATIENT REHAB ORDER, PROVIDERS AND LOCATIONS. MAMADOU IS IN AGREEMENT WITH REHAB AT [facility] IF IT IS OK WITH PT. PT IN AGREEMENT WITH REHAB AT [facility] HE FEELS HE COULD USE A LITTLE MORE TIME WITH MEDICAL TREATMENT PRIOR TO GOING ANYWHERE ELSE. IMPORTANT MESSAGE FROM MEDICARE PROVIDED AND EXPLAINED. CM NOTIFIED ELIAN OF INPATIENT REHAB AT [facility] OF PT'S AND FAMILY DECISION. REHAB TO SCREEN FOR ADMISSION.. CM WAITING SCREENING AND ADMISSION DETERMINATION BY [facility] INPATIENT REHAB. JOSE ALEJANDRO DAVIS, CASE MANAGEMENT Coverage Notice Reviewer: [id number] Kathi Corado Notice Issued Date-Time: 06/14/2018 16:25 Notice Type: Medicare Outpatient Observation Notice Notice Delivered To: Patient Relationship to Patient: Self Database Software Technician Name: Delivery Method: HAND - Hand Delivered Maisha Days: Prior Verbal Notification: Recipient Understood Notice: Yes Recipient Signature: Yes Med Rec Note Co-signed by Attending: Coverage Notice Comment: DISCUSSED THE MCCRARY WITH PATIENT AND HIS DANTE, AFTER VERBAL CONSENT RECEIVED. Reviewer: [id number] Kathi Davis Notice Issued Date-Time: 06/18/2018 10:10 Notice Type: Patient Choice Letter Notice Delivered To: Patient Relationship to Patient: Database Software Technician Name: Delivery Method: HAND - Hand Delivered Maisha Days: Prior Verbal Notification: Recipient Understood Notice: Yes Recipient Signature: Yes Med Rec Note Co-signed by Attending: Coverage Notice Comment: [facility] Reviewer: [id number] Kathi Davis Notice Issued Date-Time: 06/18/2018 10:10 Notice Type: IM Discharge Notice Notice Delivered To: Patient Relationship to Patient: Database Software Technician Name: Delivery Method: HAND - Hand Delivered Maisha Days: Prior Verbal Notification: Recipient Understood Notice: Yes Recipient Signature: Yes Med Rec Note Co-signed by Attending: Coverage Notice Comment: Reviewer: [id number] Kathi Davis Notice Issued Date-Time: 06/15/2018 15:40 Notice Type: IM Discharge Notice Notice Delivered To: Patient Relationship to Patient: Database Software Technician Name: Delivery Method: HAND - Hand Delivered Maisha Days: Prior Verbal Notification: Recipient Understood Notice: Yes Recipient Signature: Yes Med Rec Note Co-signed by Attending: Coverage Notice Comment: Last DP export: 06/18/18 9:39 a Patient Name: Zuhair GOINS Page [phone] at 1303 All edits/amendments must be made on the electronic document DICTATION DATE: 06/18/18 1302 YARN CARRIER: RIO 06/18/18 1302 RPT#: [id number] DC DATE: STATUS: ADM IN [facility] [address] [place] [address] END OF REPORT
--- NOTE | 2018-06-18 15:49 | MORECARE ---
CASE MANAGEMENT DISCHARGE SUMMARY PATIENT: Zuhair GOINS JR UNIT: [id number] ADM DATE: 06/15/18 AGE: 83 : 34 SEX: M ROOM/BED: D.2122 AUTHOR: ALY,DOC PHYSICIAN: REFERRING PHYSICIAN: JAMES TREVIÑO MD DATE OF SERVICE: 06/18/18 Discharge Plan Patient Name: Zuhair GOINS Facility: [facility]:[place] : 1935 Planned Disposition: Intermediate Facility Anticipated Discharge Date: 06/18/18 Discharge Date: Expected LOS: 3 Initial Reviewer: [id number] Initial Review Date: 06/14/2018 Generated: 06/18/18 4:49 pm Comments DCP- Discharge Planning Updated by [id number]: Jose Alejandro Davis on 06/18/18 2:[address] Patient Name: Zuhair GOINS Encounter No: [id number] : 1935 Primary Insurance: MEDICARE A & B Anticipated DC Date: 06-18-2018 Planned Disposition: Intermediate Facility External Planned Provider: [facility], MEDICARE REHAB BED DCP follow-up note: CM RECEIVED CALL FROM FLORIDALMA PE[facility]SON OF [facility], , WHO INFORMED CM THAT PT AND FAMILY HAVE CHANGED MIND AND NOW WANT TO COME TO [facility]; FLORIDALMA REPORTS SPEAKING TO PT'S SON ON MONDAY AFTERNOON. CM MET WITH PT IN ROOM TO DISCUSS DISCHARGE PLANNING AND NEEDS. PT CONFIRMED THAT HE AND HIS SON HAVE DECIDED TO GO TO [facility] AND REHAB, PT REPORTS HE IS READY AND WANTS TO DISCHARGE TO [facility] TODAY. CHOICE LISTING PROVIDED FOR INTERMEDIATE FACILITY. CHOICE LETTER SIGNED FOR [facility]HAB. IMPORTANT MESSAGE FROM MEDICARE PROVIDED AND EXPLAINED. CM FAXED REFERRAL TO [facility] FOR REHAB PLACEMENT WITH NOTICE ASKING FOR ADMISSION TODAY; FAXED TO [phone]. CM WAITING ADMISSION DETERMINATION FROM [facility] FOR ADMISSION TODAY. Jose Alejandro Davis, CASE MANAGEMENT Appended by Jose Alejandro Davis on 06/18/2018 13:00 DEPOSITION OPERATOR: CM RECEIVED TELEPHONE MESSAGE FROM PT'S DAUGHTER, ANJANA. CM SPOKE TO PT IN ROOM WHO PROVIDED PERMISSION TO DISCUSS HIS CARE, TREATMENT AND DISCHARGE PLANNING WITH HIS DAUGHTER, ANJANA. CM CALLED ANJANA AT [phone] WHO INFORMED CM THAT PT AND FAMILY HAVE DECIDED TO SEND PT TO [facility] SOON POSSIBLE FOR REHAB, NOT TO INPATIENT REHAB AT HOSPITAL. CM EXPLAINED THAT THE [facility] HAD CALLED THIS MORNING AND THAT THE PT HAD INSTRUCTED CM TO GET HIM TO [facility] AND THE [facility] PLANS TO TAKE PT TODAY FOR REHAB. ANJANA THANKED CM FOR ASSISTANCE, DENIES FURTHER NEEDS. ANJANA IS SICK AND WILL NOT VISIT WITH PT AT THE HOSPITAL AND WILL WAIT UNTIL SHE IS BETTER TO VISIT PT AT [facility] AND [facility]. CM RECEIVED CALL FROM FLORIDALMA OF [facility] WHO INFORMED CM THEY WILL ACCEPT PT TODAY. FOR DISCHARGE, FAX DISCHARGE INFORMATION TO [facility] AT [phone]; NURSE REPORT TO BE CALLED TO [facility] AT [phone]. [facility] TO ARRANGE VAN TRANSPORTATION. JOSE ALEJANDRO DAVIS, CASE MANAGEMENT Appended by Jose Alejandro Davis on 06/18/2018 15:44 DEPOSITION OPERATOR: CM RECEIVED CALL FROM FLORIDALMA OF [facility] WHO INFORMED CM THEY WILL ACCEPT PT TODAY, ASKED IF PT'S INHALER OF ADVAIR CAN BE CHANGED BACK TO HIS HOME INHALER, [place], FOR DISCHARGE TO REHAB AT [facility]. [facility] WOULD LIKE PT'S INHALER CHANGED BACK TO [place], IF POSSIBLE, FOR ADMISSION TO THE FACILITY. FOR DISCHARGE, FAX DISCHARGE INFORMATION TO [facility] AT [phone]; NURSE REPORT TO BE CALLED TO [facility] AT [phone]. [facility] TO ARRANGE VAN TRANSPORTATION. JOSE ALEJANDRO DAVIS, CASE MANAGEMENT DCP- Discharge Planning Updated by [id number]: Jose Alejandro Davis on 06/15/18 4:[address] Patient Name: Zuhair GOINS Admission Status: ER Accout number: [id number] Admission Date: 06-15-2018 : 1935 Admission Diagnosis: Attending: JAMES TREVIÑO Current LOS: 1 Anticipated DC Date: Planned Disposition: Inpatient Rehab Primary Insurance: MEDICARE A & B Discharge Planning Comments: CM RECEIVED ORDER FOR INPATIENT REHAB PRESCREENING. CM MET WITH PT IN ROOM TO DISCUSS DISCHARGE PLANNING AND NEEDS. PT REPORTS LIVING AT HOME INDEPENDENTLY WITH HIS PT HAS CANE, WALKER, NEBULIZER, SHOWER CHAIR AND HOME / PORTABLE OXGYEN FROM [facility]. PT HAS [facility] FOR NURSING ADN THERAPY. CM DISCUSSED AVAILABILITY OF HOME HEALTH, REHAB SERVICES AND MEDICAL EQUIPMENT. PT REPORTS FAMILY HAVE BEEN WORKING ON REHAB AT [facility] BUT HE MIGHT STAY AT [facility] FOR REHAB FIRST. PT WANTS CM TO CALL HIS SON,MAMADOU. CM CALLED MAMADOU FROM PT'S ROOM, . MAMADOU REPORTS THEY ARE WORKING ON REHAB AND EVENTUAL PLACEMENT OF PT AND HIS SPOUSE AT THE [facility] FROM [facility] AND REHAB. CM DISCUSSED INPATIENT REHAB ORDER, PROVIDERS AND LOCATIONS. MAMADOU IS IN AGREEMENT WITH REHAB AT [facility] IF IT IS OK WITH PT. PT IN AGREEMENT WITH REHAB AT [facility] HE FEELS HE COULD USE A LITTLE MORE TIME WITH MEDICAL TREATMENT PRIOR TO GOING ANYWHERE ELSE. IMPORTANT MESSAGE FROM MEDICARE PROVIDED AND EXPLAINED. CM NOTIFIED ELIAN OF INPATIENT REHAB AT [facility] OF PT'S AND FAMILY DECISION. REHAB TO SCREEN FOR ADMISSION.. CM WAITING SCREENING AND ADMISSION DETERMINATION BY [facility] INPATIENT REHAB. JOSE ALEJANDRO DAVIS, CASE MANAGEMENT Coverage Notice Reviewer: [id number] Kathi Pierre Byron Notice Issued Date-Time: 06/14/2018 16:25 Notice Type: Medicare Outpatient Observation Notice Notice Delivered To: Patient Relationship to Patient: Self Log Cooker Name: Delivery Method: HAND - Hand Delivered Maisha Days: Prior Verbal Notification: Recipient Understood Notice: Yes Recipient Signature: Yes Med Rec Note Co-signed by Attending: Coverage Notice Comment: DISCUSSED THE MCCRARY WITH PATIENT AND HIS DANTE, AFTER VERBAL CONSENT RECEIVED. Reviewer: [id number] Kathi Davis Notice Issued Date-Time: 06/18/2018 10:10 Notice Type: Patient Choice Letter Notice Delivered To: Patient Relationship to Patient: Log Cooker Name: Delivery Method: HAND - Hand Delivered Maisha Days: Prior Verbal Notification: Recipient Understood Notice: Yes Recipient Signature: Yes Med Rec Note Co-signed by Attending: Coverage Notice Comment: [facility] Reviewer: [id number] Kathi Davis Notice Issued Date-Time: 06/18/2018 10:10 Notice Type: IM Discharge Notice Notice Delivered To: Patient Relationship to Patient: Log Cooker Name: Delivery Method: HAND - Hand Delivered Maisha Days: Prior Verbal Notification: Recipient Understood Notice: Yes Recipient Signature: Yes Med Rec Note Co-signed by Attending: Coverage Notice Comment: Reviewer: [id number] - Jose Alejandro Davis Notice Issued Date-Time: 06/15/2018 15:40 Notice Type: IM Discharge Notice Notice Delivered To: Patient Relationship to Patient: Log Cooker Name: Delivery Method: HAND - Hand Delivered Maisha Days: Prior Verbal Notification: Recipient Understood Notice: Yes Recipient Signature: Yes Med Rec Note Co-signed by Attending: Coverage Notice Comment: Last DP export: 06/18/18 12:03 p Patient Name: Zuhair GOINS Page [id number] at 1549 All edits/amendments must be made on the electronic document DICTATION DATE: 06/18/181548 AUTO PARTS MANAGER: RIO 06/18/18 1549 RPT#: [id number] DC DATE: STATUS: ADM IN [facility] [address] [place] [address] END OF REPORT
[2018-06-18 16:01] VITALS: BP 112/59
[2018-06-18 20:00] VITALS: BP 129/59
--- NOTE | 2018-06-18 20:10 | NUR ---
INITIAL ROUNDS AND ASSESSMENT COMPLETED. PT RESTING IN BED WITH NO DISTRESS. PIV SALINE LOCKED TO LFA. NONLABORED RESPIRATONS WITH O2 @ 2L/NC. SR PER TELEMETRY. MONITOR AND CPOC.
--- NOTE | 2018-06-18 22:06 | NUR ---
BEDTIME MEDS GIVEN. PT ALERT/ORIENTED. HAS BEEN UP TO PROVIDE PERSONAL CARE AND IS NOW BACK IN BED. COVERS STRAIGHTENED.
[2018-06-19] VITALS: BP 104/49
[2018-06-19 04:00] VITALS: BP 106/59
--- NOTE | 2018-06-19 04:23 | NUR ---
PT RESITNG IN BED WITH NO SIGNS OF DISCOMFORT. EYES CLOSED. RESPS EVEN/NONLABORED. MONITOR AND CPOC.
--- NOTE | 2018-06-19 04:41 | NUR ---
TELEMETRY SR 74. PT RESTING.
--- NOTE | 2018-06-19 06:09 | NUR ---
PT DOES NOT WANT TO TAKE HIS IV LASIX THIS AM BECAUSE HE IS SUPPOSED TO BE LEAVING EARLY AM FOR [facility] AND DOES NOT WANT TO HAVE TO WORRY ABOUT NEEDING TO PEE DURING THE TRIP.
[2018-06-19 06:51] LABS: BASOPHILS 0 % (0-2); EOSINOPHILS 1.1 % (0-7); HEMATOCRIT 31.7 % (42.0-54.0); HEMOGLOBIN 10.3 g/dL (13.5-17.5); IMMATURE GRANULOCYTES 0.2 % (0-5); LYMPHOCYTES 10.7 % (15-50); MCH 29.5 pg (26.0-34.0); MCHC 32.5 g/dL (31.0-37.0); MCV 90.8 fL (80.0-100.0); MEAN PLATELET VOLUME 10.3 fL (7.4-10.4); MONOCYTES 10.1 % (2-11); NEUTROPHILS 77.9 % (40-80); PLATELET COUNT 377 10x3/uL (130-400); RBC 3.49 10x6/uL (4.20-6.10); RDW 14.4 % (11.5-14.5); WBC 12.6 10x3/uL (4.8-10.8)
[2018-06-19 06:53] LABS: ANION GAP 8.4 mmol/L (8-16); CARBON DIOXIDE 37.1 mmol/L (21.0-32.0); CREATININE - SERUM 1.6 mg/dL (0.6-1.3); POTASSIUM - SERUM 3.5 mmol/L (3.5-5.1)
[2018-06-19 09:47] VITALS: BP 103/50
--- NOTE | 2018-06-19 12:50 | MORECARE ---
CASE MANAGEMENT DISCHARGE SUMMARY PATIENT: Zuhair GIONS JR UNIT: [id number] ADM DATE: 06/15/18 AGE: 83 : 34 SEX: M ROOM/BED: D.5453 AUTHOR: ALY,DOC PHYSICIAN: REFERRING PHYSICIAN: JAMES TREVIÑO MD DATE OF SERVICE: 06/19/18 Discharge Plan Patient Name: Zuhair GOINS Facility: [facility]:[place] : 1935 Planned Disposition: Assisted Facility Anticipated Discharge Date: 06/18/18 Discharge Date: Expected LOS: 3 Initial Reviewer: [id number] Initial Review Date: 06/14/2018 Generated: 06/19/18 1:50 pm Comments DCP- Discharge Planning Updated by [email or web address]: Gabby Corado on 06/19/18 11:[address] SPOKE WITH FLORIDALMA FROM [facility] REH[facility], THE VAN WILL BE HERE TO TRACK REPAIRER THE PATIENT BETWEEN 1430 AND 1500. REPORT TO BE CALLED TO CELIO [facility] AT [phone]. THIS INFORMATION WAS DELIVERED TO RAZIA BUTCHER BEDSIDE NURSE. VIBHA WILL FAX DISCHARGE INFORMATION. DCP- Discharge Planning Updated by [id number]: Jose Alejandro Davis on 06/18/18 2:[address] Patient Name: Zuhair GOINS Encounter No: [id number] : 1935 Primary Insurance: MEDICARE A & B Anticipated DC Date: 06-18-2018 Planned Disposition: Assisted Facility External [facility] DCP follow-up note: CM RECEIVED CALL FROM FLORIDALMA PEARSON OF [facility], , WHO INFORMED CM THAT PT AND FAMILY HAVE CHANGED MIND AND NOW WANT TO COME TO [facility]; FLORIDALMA REPORTS SPEAKING TO PT'S SON ON MONDAY AFTERNOON. CM MET WITH PT IN ROOM TO DISCUSS DISCHARGE PLANNING AND NEEDS. PT CONFIRMED THAT HE AND HIS SON HAVE DECIDED TO GO TO [facility] AND REHAB, PT REPORTS HE IS READY AND WANTS TO DISCHARGE TO [facility] TODAY. CHOICE LISTING PROVIDED FOR USP FACILITY. CHOICE LETTER SIGNED FOR [facility]. IMPORTANT MESSAGE FROM MEDICARE PROVIDED AND EXPLAINED. CM FAXED REFERRAL TO [facility] FOR REHAB PLACEMENT WITH NOTICE ASKING FOR ADMISSION TODAY; FAXED TO [phone]. CM WAITING ADMISSION DETERMINATION FROM [facility] FOR ADMISSION TODAY. Jose Alejandro Davis, CASE MANAGEMENT Appended by Jose Alejandro Davis on 06/18/2018 13:00 TRAP SETTER: CM RECEIVED TELEPHONE MESSAGE FROM PT'S DAUGHTER, ANJANA. CM SPOKE TO PT IN ROOM WHO PROVIDED PERMISSION TO DISCUSS HIS CARE, TREATMENT AND DISCHARGE PLANNING WITH HIS DAUGHTER, ANJANA. CM CALLED ANJANA AT [phone] WHO INFORMED CM THAT PT AND FAMILY HAVE DECIDED TO SEND PT TO [facility] SOON POSSIBLE FOR REHAB, NOT TO INPATIENT REHAB AT HOSPITAL. CM EXPLAINED THAT THE [facility] HAD CALLED THIS MORNING AND THAT THE PT HAD INSTRUCTED CM TO GET HIM TO [place] AND THE [facility] PLANS TO TAKE PT TODAY FOR REHAB. ANJANA THANKED CM FOR ASSISTANCE, DENIES FURTHER NEEDS. ANJANA IS SICK AND WILL NOT VISIT WITH PT AT THE HOSPITAL AND WILL WAIT UNTIL SHE IS BETTER TO VISIT PT AT [facility] AND [facility]. CM RECEIVED CALL FROM FLORIDALMA OF [facility] WHO INFORMED CM THEY WILL ACCEPT PT TODAY. FOR DISCHARGE, FAX DISCHARGE INFORMATION TO [place] AT [phone]; NURSE REPORT TO BE CALLED TO [facility] AT [phone]. [facility] TO ARRANGE VAN TRANSPORTATION. JOSE ALEJANDRO DAVIS, CASE MANAGEMENT Appended by Jose Alejandro Davis on 06/18/2018 15:44 TRAP SETTER: CM RECEIVED CALL FROM FLORIDALMA OF [facility] WHO INFORMED CM THEY WILL ACCEPT PT TODAY, ASKED IF PT'S INHALER OF ADVAIR CAN BE CHANGED BACK TO HIS HOME INHALER, [place], FOR DISCHARGE TO REHAB AT [place]. [facility] WOULD LIKE PT'S INHALER CHANGED BACK TO [place], IF POSSIBLE, FOR ADMISSION TO THE FACILITY. FOR DISCHARGE, FAX DISCHARGE INFORMATION TO [facility] AT [phone]; NURSE REPORT TO BE CALLED TO [facility] AT [phone]. [facility] TO ARRANGE VAN TRANSPORTATION. JOSE ALEJANDRO DAVIS, CASE MANAGEMENT DCP- Discharge Planning Updated by [id number]: Jose Alejandro Davis on 06/15/18 4:[address] Patient Name: Zuhair GOINS Admission Status: ER Accout number: [id number] Admission Date: 06-15-2018 : 1935 Admission Diagnosis: Attending: JAMES TREVIÑO Current LOS: 1 Anticipated DC Date: Planned Disposition: Inpatient Rehab Primary Insurance: MEDICARE A & B Discharge Planning Comments: CM RECEIVED ORDER FOR INPATIENT REHAB PRESCREENING. CM MET WITH PT IN ROOM TO DISCUSS DISCHARGE PLANNING AND NEEDS. PT REPORTS LIVING AT HOME INDEPENDENTLY WITH HIS PT HAS CANE, WALKER, NEBULIZER, SHOWER CHAIR AND HOME / PORTABLE OXGYEN FROM [facility]. PT HAS [employer] FOR NURSING ADN THERAPY. CM DISCUSSED AVAILABILITY OF HOME HEALTH, REHAB SERVICES AND MEDICAL EQUIPMENT. PT REPORTS FAMILY HAVE BEEN WORKING ON REHAB AT [place] BUT HE MIGHT STAY AT [facility] FOR REHAB FIRST. PT WANTS CM TO CALL HIS SON,MAMADOU. CM CALLED MAMADOU FROM PT'S ROOM, . MAMADOU REPORTS THEY ARE WORKING ON REHAB AND EVENTUAL PLACEMENT OF PT AND HIS SPOUSE AT THE [facility] FROM [facility] AND REHAB. CM DISCUSSED INPATIENT REHAB ORDER, PROVIDERS AND LOCATIONS. MAMADOU IS IN AGREEMENT WITH REHAB AT [facility] IF IT IS OK WITH PT. PT IN AGREEMENT WITH REHAB AT [place] HE FEELS HE COULD USE A LITTLE MORE TIME WITH MEDICAL TREATMENT PRIOR TO GOING ANYWHERE ELSE. IMPORTANT MESSAGE FROM MEDICARE PROVIDED AND EXPLAINED. CM NOTIFIED ELIAN OF INPATIENT REHAB AT [facility] OF PT'S AND FAMILY DECISION. REHAB TO SCREEN FOR ADMISSION.. CM WAITING SCREENING AND ADMISSION DETERMINATION BY [facility] INPATIENT REHAB. JOSE ALEJANDRO DAVIS, CASE MANAGEMENT Coverage Notice Reviewer: [id number] - Gabby [place] Notice Issued Date-Time: 06/14/2018 16:25 Notice Type: Medicare Outpatient Observation Notice Notice Delivered To: Patient Relationship to Patient: Self Sizing Sponger Name: Delivery Method: HAND - Hand Delivered Maisha Days: Prior Verbal Notification: Recipient Understood Notice: Yes Recipient Signature: Yes Med Rec Note Co-signed by Attending: Coverage Notice Comment: DISCUSSED THE MCCRARY WITH PATIENT AND HIS DANTE, AFTER VERBAL CONSENT RECEIVED. Reviewer: [id number] - Jose Alejandro Davis Notice Issued Date-Time: 06/18/2018 10:10 Notice Type: Patient Choice Letter Notice Delivered To: Patient Relationship to Patient: Sizing Sponger Name: Delivery Method: HAND - Hand Delivered Maisha Days: Prior Verbal Notification: Recipient Understood Notice: Yes Recipient Signature: Yes Med Rec Note Co-signed by Attending: Coverage Notice Comment: [facility] Reviewer: [id number] Kathi Davis Notice Issued Date-Time: 06/18/2018 10:10 Notice Type: IM Discharge Notice Notice Delivered To: Patient Relationship to Patient: Sizing Sponger Name: Delivery Method: HAND - Hand Delivered Maisha Days: Prior Verbal Notification: Recipient Understood Notice: Yes Recipient Signature: Yes Med Rec Note Co-signed by Attending: Coverage Notice Comment: Reviewer: [id number] Kathi Davis Notice Issued Date-Time: 06/15/2018 15:40 Notice Type: IM Discharge Notice Notice Delivered To: Patient Relationship to Patient: Sizing Sponger Name: Delivery Method: HAND - Hand Delivered Maisha Days: Prior Verbal Notification: Recipient Understood Notice: Yes Recipient Signature: Yes Med Rec Note Co-signed by Attending: Coverage Notice Comment: Last DP export: 06/18/18 2:49 p Patient Name: Zuhair GOINS Page 37938 at 1250 All edits/amendments must be made on the electronic document DICTATION DATE: 06/19/18 1250 DOORMAKER: RIO 06/19/18 1250 RPT#: [id number] DC DATE: STATUS: ADM IN [facility] [address] [place] [address] END OF REPORT
--- NOTE | 2018-06-19 13:08 | MORECARE ---
CASE MANAGEMENT DISCHARGE SUMMARY PATIENT: Zuhair GOINS JR UNIT: [id number] ADM DATE: 06/15/18 AGE: 83 : 34 SEX: M ROOM/BED: D.2122 AUTHOR: ALY,DOC PHYSICIAN: REFERRING PHYSICIAN: JAMES TREVIÑO MD DATE OF SERVICE: 06/19/18 Discharge Plan Patient Name: Zuhair GOINS Facility: [facility]:[place] : 1935 Planned Disposition: Snf Facility Anticipated Discharge Date: 06/19/18 Discharge Date: Expected LOS: 4 Initial Reviewer: [id number] Initial Review Date: 06/14/2018 Generated: 06/19/18 2:08 pm Comments DCP- Discharge Planning Updated by [email or web address]: Digna Davis on 06/19/18 12:[address] SPOKE WITH [facility]AL[facility] FROM [facility], THE VAN WILL BE HERE TO LOGISTICS OPERATIONS DIRECTOR THE PATIENT BETWEEN 1430 AND 1500. REPORT TO BE CALLED TO [facility] ON [facility] AT [phone]. THIS INFORMATION WAS DELIVERED TO RAZIA BUTCHER BEDSIDE NURSE. VIBHA WILL FAX DISCHARGE INFORMATION. Appended by Digna Davis on 06/19/2018 13:04 SENIOR QUALITY ASSURANCE ANALYST: CM FAXED DISCHARGE INFORMATION TO [facility] AT [phone]; NURSE REPORT TO BE CALLED TO CELIO AT [facility] AT [phone]. [facility] TO ARRANGE VAN TRANSPORTATION FOR BETWEEN 1430 AND 1500 HOURS TODAY. DIGNA DAVIS, CASE MANAGEMENT CHAMP AGUILAR DCP- Discharge Planning Updated by [email or web address]: Digna Davis on 06/18/18 2:[address] Patient Name: Zuhair GOINS Encounter No: [id number] : 1935 Primary Insurance: MEDICARE A & B Anticipated DC Date: 06-18-2018 Planned Disposition: Snf Facility External Planned Provider: [facility], MEDICARE REHAB BED DCP follow-up note: CM RECEIVED CALL FROM FLORIDALMA PEARSON OF [facility], , WHO INFORMED CM THAT PT AND FAMILY HAVE CHANGED MIND AND NOW WANT TO COME TO [facility]; FLORIDALMA REPORTS SPEAKING TO PT'S SON ON MONDAY AFTERNOON. CM MET WITH PT IN ROOM TO DISCUSS DISCHARGE PLANNING AND NEEDS. PT CONFIRMED THAT HE AND HIS [facility] DEC[facility] TO [facility], PT REPORTS HE IS READY AND WANTS TO DISCHARGE TO [facility] TODAY. CHOICE LISTING PROVIDED FOR SENIOR CARE FACILITY. CHOICE LETTER SIGNED FOR [facility]. IMPORTANT MESSAGE FROM MEDICARE PROVIDED AND EXPLAINED. CM FAXED REFERRAL TO [facility] FOR REHAB PLACEMENT WITH NOTICE ASKING FOR ADMISSION TODAY; FAXED TO [phone]. CM WAITING ADMISSION DETERMINATION FROM [facility] FOR ADMISSION TODAY. Digna Davis, CASE MANAGEMENT Appended by Digna Davis on 06/18/2018 13:00 SENIOR QUALITY ASSURANCE ANALYST: CM RECEIVED TELEPHONE MESSAGE FROM PT'S DAUGHTER, ANJANA. CM SPOKE TO PT IN ROOM WHO PROVIDED PERMISSION TO DISCUSS HIS CARE, TREATMENT AND DISCHARGE PLANNING WITH HIS DAUGHTER, ANJANA. CM CALLED ANJANA AT [phone] WHO INFORMED CM THAT PT AND FAMILY HAVE DECIDED TO SEND PT TO [facility] SOON POSSIBLE FOR REHAB, NOT TO INPATIENT REHAB AT HOSPITAL. CM EXPLAINED THAT THE [facility] HAD CALLED THIS MORNING AND THAT THE PT HAD INSTRUCTED CM TO GET HIM TO [facility] AND THE [facility] PLANS TO TAKE PT TODAY FOR REHAB. ANJANA THANKED CM FOR ASSISTANCE, DENIES FURTHER NEEDS. ANJANA IS SICK AND WILL NOT VISIT WITH PT AT THE HOSPITAL AND WILL WAIT UNTIL SHE IS BETTER TO VISIT PT AT [facility]. CM RECEIVED CALL FROM FLORIDALMA OF [facility] WHO INFORMED CM THEY WILL ACCEPT PT TODAY. FOR DISCHARGE, FAX DISCHARGE INFORMATION TO [facility] AT [phone]; NURSE REPORT TO BE CALLED TO [facility] AT [phone]. [facility] TO ARRANGE VAN TRANSPORTATION. DIGNA DAVIS, CASE MANAGEMENT Appended by Digna Davis on 06/18/2018 15:44 SENIOR QUALITY ASSURANCE ANALYST: CM RECEIVED CALL FROM FLORIDALMA OF [facility] WHO INFORMED CM THEY WILL ACCEPT PT TODAY, ASKED IF PT'S INHALER OF ADVAIR CAN BE CHANGED BACK TO HIS HOME INHALER, [place], FOR DISCHARGE TO REHAB AT [facility]. [facility] WOULD LIKE PT'S INHALER CHANGED BACK TO [place], IF POSSIBLE, FOR ADMISSION TO THE FACILITY. FOR DISCHARGE, FAX DISCHARGE INFORMATION TO [facility] AT [phone]; NURSE REPORT TO BE CALLED TO [facility] AT [phone]. [facility] TO ARRANGE VAN TRANSPORTATION. CHAMP AGUILAR DCP- Discharge Planning Updated by [id number]: Digna Davis on 06/15/18 4:[address] Patient Name: Zuhair GOINS Admission Status: ER Accout number: [id number] Admission Date: 06-15-2018 : 1935 Admission Diagnosis: Attending: JAMES TREVIÑO Current LOS: 1 Anticipated DC Date: Planned Disposition: Inpatient Rehab Primary Insurance: MEDICARE A & B Discharge Planning Comments: CM RECEIVED ORDER FOR INPATIENT REHAB PRESCREENING. CM MET WITH PT IN ROOM TO DISCUSS DISCHARGE PLANNING AND NEEDS. PT REPORTS LIVING AT HOME INDEPENDENTLY WITH HIS PT HAS CANE, WALKER, NEBULIZER, SHOWER CHAIR AND HOME / PORTABLE OXGYEN FROM [facility] [place]. PT HAS [facility] FOR NURSING ADN THERAPY. CM DISCUSSED AVAILABILITY OF HOME HEALTH, REHAB SERVICES AND MEDICAL EQUIPMENT. PT REPORTS FAMILY HAVE BEEN WORKING ON REHAB AT [facility] BUT HE MIGHT STAY AT [place] FOR REHAB FIRST. PT WANTS CM TO CALL HIS SON,MAMADOU. CM CALLED MAMADOU FROM PT'S ROOM, . MAMADOU REPORTS THEY ARE WORKING ON REHAB AND EVENTUAL PLACEMENT OF PT AND HIS SPOUSE AT THE [facility] FROM [facility] AND REHAB. CM DISCUSSED INPATIENT REHAB ORDER, PROVIDERS AND LOCATIONS. MAMADOU IS IN AGREEMENT WITH REHAB AT [place] IF IT IS OK WITH PT. PT IN AGREEMENT WITH REHAB AT [place] HE FEELS HE COULD USE A LITTLE MORE TIME WITH MEDICAL TREATMENT PRIOR TO GOING ANYWHERE ELSE. IMPORTANT MESSAGE FROM MEDICARE PROVIDED AND EXPLAINED. CM NOTIFIED ELIAN OF INPATIENT REHAB AT [place] OF PT'S AND FAMILY DECISION. REHAB TO SCREEN FOR ADMISSION.. CM WAITING SCREENING AND ADMISSION DETERMINATION BY [facility] INPATIENT REHAB. DIGNA DAVIS CASE MANAGEMENT Coverage Notice Reviewer: [id number] Kathi Pierre [place] Notice Issued Date-Time: 06/14/2018 16:25 Notice Type: Medicare Outpatient Observation Notice Notice Delivered To: Patient Relationship to Patient: Self Geothermal Electrical Engineer Name: Delivery Method: HAND - Hand Delivered Maisha Days: Prior Verbal Notification: Recipient Understood Notice: Yes Recipient Signature: Yes Med Rec Note Co-signed by Attending: Coverage Notice Comment: DISCUSSED THE MCCRARY WITH PATIENT AND HIS DANTE, AFTER VERBAL CONSENT RECEIVED. Reviewer: DOROTHY Davis Notice Issued Date-Time: 06/18/2018 10:10 Notice Type: Patient Choice Letter Notice Delivered To: Patient Relationship to Patient: Geothermal Electrical Engineer Name: Delivery Method: HAND - Hand Delivered Maisha Days: Prior Verbal Notification: Recipient Understood Notice: Yes Recipient Signature: Yes Med Rec Note Co-signed by Attending: Coverage Notice Comment: [facility] Reviewer: DOROTHY Davis Notice Issued Date-Time: 06/18/2018 10:10 Notice Type: IM Discharge Notice Notice Delivered To: Patient Relationship to Patient: Geothermal Electrical Engineer Name: Delivery Method: HAND - Hand Delivered Maisha Days: Prior Verbal Notification: Recipient Understood Notice: Yes Recipient Signature: Yes Med Rec Note Co-signed by Attending: Coverage Notice Comment: Reviewer: DOROTHY Davis Notice Issued Date-Time: 06/15/2018 15:40 Notice Type: IM Discharge Notice Notice Delivered To: Patient Relationship to Patient: Geothermal Electrical Engineer Name: Delivery Method: HAND - Hand Delivered Maisha Days: Prior Verbal Notification: Recipient Understood Notice: Yes Recipient Signature: Yes Med Rec Note Co-signed by Attending: Coverage Notice Comment: Last DP export: 06/19/18 11:50 a Patient Name: Zuhair GOINS Page 31692 at 1308 All edits/amendments must be made on the electronic document DICTATION DATE: 06/19/18 1307 ASSEMBLER UNIT: RIO 06/19/18 1307 RPT#: [id number] DC DATE: STATUS: ADM IN [facility] [address] [place] [address] END OF REPORT
--- NOTE | 2018-06-19 13:25 | CN ---
PATIENT NAME:Zuhair GOINS JR MEDICAL RECORD: [id number] : [birth year] LOCATION:[facility].2122 ADMIT DATE: 06/15/18 ACCOUNT: [id number] CONSULTING PHYSICIAN: GEOVANI GUIDRY MD REFERRING PHYSICIAN: JAMES TREVIÑO MD DATE OF CONSULTATION: 06/14/2018 HISTORY OF PRESENT ILLNESS: An 83-year-old gentleman with multiple medical problems including obstructive pulmonary disease, has a history of recent admission for obstructive pulmonary disease, renal insufficiency. Admitted with progressive lower extremity edema, marked dyspnea. He probably continues to smoke. He is noted to have elevated cardiac enzymes. He did not have breathing treatments. [place] fairly tight. We are asked to see him concerning his cardiovascular status. PAST MEDICAL HISTORY: Includes; 1. History of obstructive pulmonary disease. 2. Hypertension. 3. Hyperlipidemia. MEDICATIONS: Include albuterol 1 puff every 4 hours, Bentyl 20 mg p.o. day, DuoNeb every 4 hours, Plavix 75 every day, Trental 400 b.i.d., metoprolol 50 b.i.d., pravastatin 20 every day, Lyrica 75 b.i.d., Lasix 20 every day, Singulair. SOCIAL HISTORY: Lives near [place]. He smokes about a half pack a day. Does have some problems with ADLs. REVIEW OF SYSTEMS: The patient reports easy bruising but reports no swollen glands. The patient reports no fever, no night sweats, no significant weight gain, no significant weight loss. No significant exercise tolerance. The patient reports no dry eyes, no irritation, no vision change. Patient reports no difficulty hearing and no ear pain. Patient reports no frequent nose bleeds or nose and sinus problems. Patient reports on arm pain on exertion. No shortness of breath while lying down. No history of heart murmur. Patient reports no cough, no wheezing or coughing up blood. Patient reports no abdominal pain, no vomiting. Normal appetite. No diarrhea and not vomiting blood. No nausea and no constipation. Patient reports no incontinence. No difficulty urinating. No hematuria. No increased frequency. Patient reports no muscle aches. No weakness, no arthralgias, no back pain. No swelling of the extremities. Patient reports no abnormal mole, no jaundice, no rashes. Reports no loss of consciousness. No weakness and no numbness. No seizures, dizziness, or headaches. The patient reports no depression, no sleep disturbance, feeling safe in a relationship and no alcohol abuse. Patient reports on fatigue. Reports no runny nose or sinus pressure. No itching, no hives, and no frequent sneezing. PHYSICAL EXAMINATION: GENERAL: Chronically ill-appearing gentleman, in mild distress secondary to dyspnea. VITAL SIGNS: Blood pressure 167/86, pulse 91. HEENT: Normocephalic, atraumatic. NECK: No bruits are noted. HEART: Heart tones are distant. A II/ systolic ejection murmur. LUNGS: Prolonged expiratory phase with expiratory wheezing. CONSULT REPORT [id number] Zuhair GOINS JR ABDOMEN: Soft, nontender. EXTREMITIES: Pulses are 1+. There is 1+ edema. IMPRESSION: Suspect this may be more of a demand ischemia with the elevated troponins. We will check echocardiographic study to assess LV function. Otherwise treat underlying obstructive pulmonary disease, etc. Further recommendations based on clinical course. TRANSINT:[id number] Voice Confirmation ID: [id number] DOCUMENT ID: [id number] GEOVANI GUIDRY MD at 1325 CC: [id number] DICTATION DATE: 06/14/18 0847 IT CORPORATE RECRUITER: 06/14/18 1134 ADM IN [place] [id number] [place] [id number]
--- NOTE | 2018-06-19 15:07 | NUR ---
ALERT AND ORIENTED X4. DISCHARGE PAPERS SIGNED ON CHART. DC LT FA IV TIP INTACT. CALL REPORT TO [facility]. STAYED ON HOLD FOR 10 MINUTES. NO ANSWER. TRANSPORT VAN ARRIVES. ESCORT TO RIDE VIA WHEELCHAIR. REMAINS FREE FROM INJURY.
== END 2018-06-19 15:09 | DRG 291 ==
LOC: D.ER 21:03 → OBSVTIME 22:53 → D.M2 22:53 → D.SDCHOLD 06-18 17:24 → D.M2 06-18 17:27
PROVIDERS: Family Medicine; ADMIT Internal Medicine Nephrology
DX: I11.0 Hypertensive heart disease with heart failure (principal); I50.31 Acute diastolic (congestive) heart failure; J96.21 Acute and chronic respiratory failure with hypoxia; J44.1 Chronic obstructive pulmonary disease with (acute) exacerbation; N17.9 Acute kidney failure, unspecified; F17.213 Nicotine dependence, cigarettes, with withdrawal; I24.8 Other forms of acute ischemic heart disease; I25.110 Atherosclerotic heart disease of native coronary artery with unstable angina pectoris; I73.9 Peripheral vascular disease, unspecified; D50.9 Iron deficiency anemia, unspecified; K21.9 Gastro-esophageal reflux disease without esophagitis; N40.0 Benign prostatic hyperplasia without lower urinary tract symptoms; I65.23 Occlusion and stenosis of bilateral carotid arteries; E78.5 Hyperlipidemia, unspecified

== ENCOUNTER 2018-10-22 07:07 | Inpatient (IN) | payer MEDICARE, BC ==
[2018-10-22] VITALS (12 sets, daily range): BP systolic 113–160; BP diastolic 49–67; BMI 18.6
[~2018-10-22] VITALS: Ht 177.8 cm; Wt 59.0 kg
--- NOTE | 2018-10-22 07:15 | NUR ---
TRAUMA BAND [id number]
--- NOTE | 2018-10-22 07:21 | NUR ---
CERVICAL COLLAR APPLIED UPON ARRIVAL TO ED.
--- NOTE | 2018-10-22 07:25 | NUR ---
PT LEAVING ED ON STRETCHER TO MEDICAL IMAGING.
[2018-10-22 07:34] LABS: BASOPHILS 0.1 % (0-2); HEMOGLOBIN 12.1 g/dL (13.5-17.5); IMMATURE GRANULOCYTES 0.2 % (0-5); LYMPHOCYTES 8.1 % (15-50); MCH 26.9 pg (26.0-34.0); MCV 86.7 fL (80.0-100.0); MEAN PLATELET VOLUME 10.5 fL (7.4-10.4); MONOCYTES 8.7 % (2-11); NEUTROPHILS 81.9 % (40-80); PLATELET COUNT 338 10x3/uL (130-400); RDW 16.4 % (11.5-14.5); WBC 14.6 10x3/uL (4.8-10.8)
--- NOTE | 2018-10-22 07:34 | NUR ---
PT RETURNED TO THE ED FOLLOWING ORDERED CT AT THIS TIME.
[2018-10-22 07:42] LABS: PROTIME 12.7 SECONDS (11.6-15.0)
[2018-10-22 07:43] LABS: APTT 25.7 SECONDS (22.8-39.4)
[2018-10-22 07:46] LABS: ALBUMIN 3.6 g/dL (3.4-5.0); ALKALINE PHOSPHATASE 92 U/L (46-116); ALT (SGPT) 17 U/L (10-68); BILIRUBIN - TOTAL 0.19 mg/dL (0.2-1.3); CALC OSMOLALITY 287 mosm/kg (275-300); CALCIUM 9.9 mg/dL (8.5-10.1); CARBON DIOXIDE 36.6 mmol/L (21.0-32.0); CHLORIDE - SERUM 102 mmol/L (98-107); CREATININE - SERUM 1.4 mg/dL (0.6-1.3); GLUCOSE 119 mg/dL (74-106); POTASSIUM - SERUM 4.9 mmol/L (3.5-5.1); PROTEIN - SERUM 7.5 g/dL (6.4-8.2); SODIUM 141 mmol/L (136-145); UREA NITROGEN 30 mg/dL (7-18); eGFR NON AFRICAN AMERICAN 51 mL/min (90-120)
[2018-10-22 07:57] LABS: CKMB 7.6 U/L (0.0-3.6); CREATINE KINASE 550 UL (21-232); MAGNESIUM - SERUM 2.3 mg/dL (1.8-2.4); TROPONIN-I < 0.017 ng/mL (0.000-0.060)
--- NOTE | 2018-10-22 08:28 | NUR ---
LATE ENTRY, C-COLLAR REMOVED FOLLOWING EDP VERBAL ORDER ONCE CT RESULTS RECEIVED. PT CONTINUES TO WAKE TO VERBAL STIMULI AND TOUCH, FALLING ASLEEP EASILY. WHEN AWAKE PT ORIENTED TO PERSON AND PLACE, SOMEWHAT TO TIME. (ABLE TO STATE CURRENT PRESIDENT, UNABLE TO GIVE CURRENT DATE, ABLE TO STATE CORRECTLY.) PT ABLE TO FOLLOW COMMANDS, STRENGTH WEAK TO ALL EXTREMITIES. PT ELLABORATED THAT PT FELL AT HOME AND HIT HIS HEAD ON THE FLOOR, CAUSING LOC AT APPROX 0130, DOWN FOR UNKNOWN AMOUNT OF TIME. PT STATES THAT UPON WAKING HE USED LIFE ALERT TO CALL EMS. PT ARRIVED WITH GOLD [place] BAND, WATCH, CELL PHONE, LIFE ALERT NECKLACE, AND CLOTHING. ALL PLACED IN PT BELONGING BAG. DRIED BLOOD TO PT'S FACE/ FOREHEAD, FEET AND HANDS, WASHED. LACERATION NOTED ABOVE LEFT BROW AND TO LEFT HAND 4TH DIGIT. ALSO ARRIVED WITH DENTURES IN PLACE.
--- NOTE | 2018-10-22 09:02 | NUR ---
UPON CHANGING PT INTO GOWN, SKIN TEAR TO LEFT SHOULDER AND SKIN TEAR TO RIGHT ELBOW OBSERVED. SKIN TEARS CLEANED AND BANDAGES APPLIED.
--- NOTE | 2018-10-22 10:13 | NUR ---
PT APPEARS TO BE RESTING WITH EYES CLOSED. RESPIRATIONS EVEN, SPO2 98% . PT AWAKENS TO VOICE. IS ABLE TO ANSWER YES AND NO QUESTIONS. WHEN AWAKE, PT IS ORIENTED TO SELF, PLACE AND KNOWS WHO THE CURRENT PRESIDENT IS.
--- NOTE | 2018-10-22 10:57 | NUR ---
PROVIDER Maggy TURNER AT THE BEDSIDE TO SUTURE LACERATION TO THE LEFT FOREHEAD AND LACERATION TO THE FOURTH DIGIT, LEFT HAND, PT'S RING WAS ABLE TO BE REMOVED BY PROVIDER AND PLACED IN PT BELONGING BAG AND LABELED ALONG WITH PT'S WALLETT AND POCKETBOOK. PROVIDER Maggy TURNER STATES FOUR SUTURES TO LAC ABOVE LEFT BROW, AND TWO SUTURES TO THE PALMAR SIDE OF PT'S FOURTH DIGIT, LEFT HAND.
--- NOTE | 2018-10-22 11:01 | NUR ---
PT WAKES TO VERBAL COMMANDS, IS ABLE TO ROLL FROM SIDE TO SIDE. PT MOVES ARMS FREELY.
--- NOTE | 2018-10-22 12:58 | MORECARE ---
CASE MANAGEMENT DISCHARGE SUMMARY PATIENT: Zuhair GONZALEZ JR UNIT: [id number] ADM DATE: 10/22/18 AGE: 83 : 34 SEX: M ROOM/BED: D.2219 AUTHOR: ROGER LU PHYSICIAN: REFERRING PHYSICIAN: JAYNE HANKS MD DATE OF SERVICE: 10/22/18 Discharge Plan Patient Name: Zuhair GONZALEZ [facility] [facility] 1935 Planned Disposition: Inpatient Rehab Facility Anticipated Discharge Date: 10/24/18 Discharge Date: Expected LOS: 2 Initial Reviewer: [email or web address] Initial Review Date: 10/22/2018 Generated: 10/22/18 1:57 pm DCPIA - Discharge Planning Initial Assessment Updated by [email or web address]: Virgen Chaves on 10/22/18 12:55 pm * Is the patient Alert and Oriented? Yes * PCP Dr. Cortes * Pharmacy [facility] * Preadmission Environment Home Alone * ADLs Independent * Equipment Oxygen Rolling Walker * Other Equipment [employer] is oxygen provider * List name and contact numbers for known caregivers / representatives who currently or will assist patient after discharge: Andrea Aguilarjesica Gonzalez - son [phone] Ed Gonzalez - son - [phone] * Verbal permission to speak to the caregivers and representatives has been obtained from the patient. Yes * Community resources currently utilized Other * Please name any agencies selected above. Son reported HH just dc him from services. He stated patient needs rehab but his father said he would never go back to a [place] facility. * Additional services required to return to the preadmission environment? Yes * Can the patient safely return to the preadmission environment? No * Has this patient been hospitalized within the prior 30 days at any hospital? No Patient Name: Zuhair GONZALEZ Page 57790 at 1258 All edits/amendments must be made on the electronic document DICTATION DATE: 10/22/18 1257 TEXTILE MACHINERY INSTRUCTOR: RIO 10/22/18 1257 RPT#: [id number] DC DATE: STATUS: ADM IN [facility] [address] [place] [address] END OF REPORT
--- NOTE | 2018-10-22 13:05 | MORECARE ---
CASE MANAGEMENT DISCHARGE SUMMARY PATIENT: Zuhair GONZALEZ JR UNIT: [id number] ADM DATE: 10/22/18 AGE: 83 : 34 SEX: M ROOM/BED: D.2219 AUTHOR: ALYDOC PHYSICIAN: REFERRING PHYSICIAN: JAYNE HANKS MD DATE OF SERVICE: 10/22/18 Discharge Plan Patient Name: Zuhair GONZALEZ Facility: [facility]:[place] : 1935 Planned Disposition: Inpatient Rehab Facility Anticipated Discharge Date: 10/24/18 Discharge Date: Expected LOS: 2 Initial Reviewer: [email or web address] Initial Review Date: 10/22/2018 Generated: 10/22/18 2:05 pm DCP- Discharge Planning Updated by [id number]: Virgen Chaves on 10/22/18 12:[address] Patient Name: Zuhair GONZALEZ Admission Status: ER Accout number: [id number] Admission Date: 10-22-2018 : 1935 Admission Diagnosis: Attending: JAYNE HANKS Current LOS: 1 Anticipated DC Date: 10-24-2018 Planned Disposition: Inpatient Rehab Facility Primary Insurance: MEDICARE A & B Discharge Planning Comments: CM met with patient to complete initial dc planning assessment. CM educated patient on the CM role and verbal consent given by patient to complete assessment. CM verified patient's address, phone number, and emergency contact phone numbers. Patient lives at home alone and said he was independent in his care until today. Patient with BIPAP in use and having a difficult time answering questions. CM contacted his son who reported the patient was just discharged from home health services. He could not remember which agency his father had. He reported he had a entry level account representative, unsure who, come to his father's house to see if he qualified for assisted living. He stated the rep for the stated said he was able to self care for himself at home. CM not sure who this rep was working for of who the rep was representing. At [place] feels his dad needs rehab. He stated his dad was at [facility] in June and he stated his dad said he would never go back to rehab. [place] feels his dad need rehab at discharge. CM unable to discuss this information with the patient at this time. Once patient able to talk and have a conversation cm will discuss rehab options with patient to determine a safe dc plan. CM will continue to follow and will assist as needed with dc plans/needs Protective Officer: Virgen Chaves RN, [facility] DCPIA - Discharge Planning Initial Assessment Updated by [email or web address]: Virgen Chaves on 10/22/18 12:55 pm * Is the patient Alert and Oriented? Yes * PCP Dr. Cortes * Pharmacy [facility] * Preadmission Environment Home Alone * ADLs Independent * Equipment Oxygen Rolling Walker * Other Equipment [employer] is oxygen provider * List name and contact numbers for known caregivers / representatives who currently or will assist patient after discharge: Andrea or Cindy Gonzalez - son - [phone] Ed Gonzalez - magdiel - [phone] * Verbal permission to speak to the caregivers and representatives has been obtained from the patient. Yes * Community resources currently utilized Other * Please name any agencies selected above. Son reported HH just dc him from services. He stated patient needs rehab but his father said he would never go back to a half-way. * Additional services required to return to the preadmission environment? Yes * Can the patient safely return to the preadmission environment? No * Has this patient been hospitalized within the prior 30 days at any hospital? No Last DP export: 10/22/18 11:57 a Patient Name: Zuhair GONZALEZ Page [phone] at 1305 All edits/amendments must be made on the electronic document DICTATION DATE: 10/22/18 1304 EXPENDITURE REQUISITION CLERK: RIO 10/22/18 1304 RPT#: [id number] DC DATE: STATUS: ADM IN [address] [place] [address] END OF REPORT
--- NOTE | 2018-10-22 13:08 | NUR ---
PT WAKENS TO VOICE. WHEN AWAKE, IS ORIENTED TO SELF AND PLACE, WELL WHO THE PRESIDENT IS. NOT AWARE OF CURRENT TIME OR DATE. REORIENTED TO CORRECT TIME.
--- NOTE | 2018-10-22 13:47 | NUR ---
ORDERED ROCEPHIN COMPLETE AT 1340.
[2018-10-22] MEDS ORDERED: LEXAPRO10 MG PO (14:40)
[2018-10-22] MEDS ORDERED: K-DUR20 MEQ PO (14:40)
[2018-10-22] MEDS ORDERED: ULTRAM50 MG PO (14:41)
--- NOTE | 2018-10-22 20:00 | NUR ---
AWAKE PULLS OFF BIPAP MASK. SITS ON SIDE OF BED AT THE BOTTOM AREA. SALINE LOCK PATENT LEFT WRIST. NOTIFIED RT ADWOA IN REGARD TO BIPAP MACHINE. RT TECH PLACED PATIENT OF HIGH O2 AT 5L/M PER NC. ASSISTED PATIENT BACK INTO HIS BED. PATIENT THEN TAKES OFF HIS GOWN AND OXYGEN. AND IS STANDING NEXT TO BED. VERY CONFUSED. PLACED URINAL PATIENT TRIES TO PUT INTO HIS MOUTH. ATTEMPT TO REORIENT PATIENT UNSUCCESSFULLY. REDRESSED PATIENT AND REPLACED HIS OXYGEN AND ASSISTED BACK TO BED. RE SET BED ALARM.
--- NOTE | 2018-10-22 20:30 | NUR ---
BED ALARM SOUNDING. PATIENT OUT OF BED AGAIN SITTING IN BLACK CHAIR IN ROOM.ASSISTED BACK TO BED SR UP X2 CALL LIGHT WITHIN REACH. BED ALARM RESET.
--- NOTE | 2018-10-22 21:30 | NUR ---
MEDS GIVEN PER MAR. PATIENT HAS BUMPED HIS RT ELBOW AND IS BLEEDING. REDRESSED RT ELBOW. PATIENT ALSO HAS LEFT RING FINGER BLEEDING REDRESSED AREA.
--- NOTE | 2018-10-22 22:00 | NUR ---
REMAINS AWAKE. CLIMBS OUT OF BED AGAIN AND REMOVES GOWN AND CLIMBS ON TOP OF SINK SITTING IN THE SINK. ASSISTED OFF OF SINK REDRESSED PATIENT. PATIENT INC OF STOOL COMPLETE BED BATH WITH LINENS CHANGED.
--- NOTE | 2018-10-23 | NUR ---
PATIENT STILL CLIMBING OUT OF BED PLACED ON BSC LARGE!!!! FORMED BROWN STOOL OTED CLEANED PATIENT REDRESSED PATIENT ASSISTED BACK TO BED REPLACED NASAL O2. RESET BED ALARM. CALL LIGHT WITHIN REACH.
[2018-10-23 01:12] VITALS: BP 134/59
--- NOTE | 2018-10-23 02:00 | NUR ---
PATIENT RESTING AT THIS TIME. REMAINS IN HIS BED SR UP X2 CALL LIGHT WITHIN REACH.
--- NOTE | 2018-10-23 02:48 | NUR ---
PT HAS BROKEN TWO FACE MASK WHILE TAKING HIS MASK OFF MADE SEVERAL ATTEMPTS TO DON MASK HOWEVER PT WILL NOT COMPLY. APPEARS CONFUSED. CURRENTLY ON 4L NC AND SPO2 HOLDING STEADY AT 94% WILL MONITOR
[2018-10-23 04:45] VITALS: BP 154/60
--- NOTE | 2018-10-23 05:46 | NUR ---
PATIENT HAS CONTINUED THROUGHTOUT THE NIGHT PULLING OFF BIPAP WILL NOT KEEP ON.
[2018-10-23 05:49] LABS: BASOPHILS 0 % (0-2); EOSINOPHILS 0 % (0-7); HEMATOCRIT 34.6 % (42.0-54.0); HEMOGLOBIN 10.9 g/dL (13.5-17.5); IMMATURE GRANULOCYTES 0.2 % (0-5); LYMPHOCYTES 4.5 % (15-50); MCH 26.5 pg (26.0-34.0); MCHC 31.5 g/dL (31.0-37.0); MEAN PLATELET VOLUME 10.7 fL (7.4-10.4); MONOCYTES 3.6 % (2-11); NEUTROPHILS 91.7 % (40-80); PLATELET COUNT 325 10x3/uL (130-400); RBC 4.12 10x6/uL (4.20-6.10); RDW 16.1 % (11.5-14.5); WBC 12.1 10x3/uL (4.8-10.8)
[2018-10-23 06:33] LABS: ALBUMIN 3.4 g/dL (3.4-5.0); ALKALINE PHOSPHATASE 93 U/L (46-116); CALCIUM 10.3 mg/dL (8.5-10.1); CARBON DIOXIDE 32.1 mmol/L (21.0-32.0); CHLORIDE - SERUM 104 mmol/L (98-107); CKMB 11.3 U/L (0.0-3.6); CREATININE - SERUM 1.5 mg/dL (0.6-1.3); GLUCOSE 155 mg/dL (74-106); POTASSIUM - SERUM 4.9 mmol/L (3.5-5.1); PROTEIN - SERUM 6.9 g/dL (6.4-8.2); SODIUM 143 mmol/L (136-145); eGFR NON AFRICAN AMERICAN 47 mL/min (90-120)
[2018-10-23 06:45] LABS: ALT (SGPT) 28 U/L (10-68); CALC OSMOLALITY 298 mosm/kg (275-300); CREATINE KINASE 1603 UL (21-232); UREA NITROGEN 44 mg/dL (7-18)
[2018-10-23 06:46] LABS: TROPONIN-I 0.322 ng/mL (0.000-0.060)
[2018-10-23 08:00] VITALS: BP 123/69
--- NOTE | 2018-10-23 08:00 | NUR ---
ASSESSMENT PER FLOW SHEET. PT IS WITHOUT DISTRESS.BED ALARM ON AND WORKING.CALL LIGHT IN REACH
--- NOTE | 2018-10-23 10:16 | NUR ---
PLACED PT ON 4L NASAL CANNULA, PT KEEPS TAKING CANNULA OFF
--- NOTE | 2018-10-23 11:00 | NUR ---
IV PULLED OUT BY PT. HE REFUSES ONE AT THIS TIME
--- NOTE | 2018-10-23 12:52 | NUR ---
MULTIPLE CALLS FROM [facility] [facility] [employer].INSTRUCTED THEM POA WOULD HAVE TO PROVIDE COPY FOR HOSPITAL AND SET UP PASSWORD BEFORE ANY INFORMATION COULD BE GIVEN OUT
[2018-10-23 13:11] VITALS: Ht 177.8 cm; Wt 59.0 kg
[2018-10-23 15:10] VITALS: BP 132/72
--- NOTE | 2018-10-23 15:23 | NUR ---
IV RESTARTED AND MEDS ORDERED.IV SITED TO LEFT FOREARM X1 STICK USING ASEPTIC TECH,22G.PT PREVIOUSLY PULLED IV OUT WITH CATH TIP INTACT.
--- NOTE | 2018-10-23 15:29 | NUR ---
PT HAS BEEN UP MULTIPLE TIMES . PT REINSTRUCTED TO STAY IN BED.BED ALARM AND JAY ON. DOOR OPEN
--- NOTE | 2018-10-23 17:57 | NUR ---
AWAKENS INT. PT IS MORE CALM AFTER MEDS ORDERED PER MAR.FALL PREVENTION IN PLACE
--- NOTE | 2018-10-23 20:00 | NUR ---
ASSESSMENT PER FLOWSHEET. IV PATENT TO LEFT WRIST OF NS KVO FOR IV MEDS. VISITS.ORDERS WRITTEN. BRUISES NOTED TO LEFT EYELID AND BOTH ARMS. SKIN TEAR TO RT ELBOW AND TO LEFT RING FINGER.DRSGS NOTED. LACERATION TO FOREHEAD WITH STITCHES C/D/I. BRUISES NOTED TO BODY. O2 ON 2.5L/M HIGH FLOW. PT CONTINUES TO PULL NASAL CANNULA OFF. THEN C/O BEING SHORT OF BREATH.
[2018-10-23 21:01] VITALS: BP 157/69
--- NOTE | 2018-10-23 21:30 | NUR ---
MEDS GIVEN PER MAR. PATIENT CONTINUES TO CLIMB OUT OF BED. SOUNDING BED ALARM.
--- NOTE | 2018-10-23 22:04 | NUR ---
GEODON 10MG IM GIVEN TO HELP CALM PATIENT.
--- NOTE | 2018-10-24 | NUR ---
SLEEPS FOR SHORT PERIODS OF TIME THEN STARTS TO CLIMB OUT OF BED. SR UP X2 CALL LIGHT WITHIN REACH.
[2018-10-24 00:48] VITALS: BP 157/77
--- NOTE | 2018-10-24 01:24 | NUR ---
C/O HEADACHE TYLENOL 650MG PO GIVEN FOR PAIN CONTROL. PT CLIMBS OUT OF BED SITTING IN CHAIR AT BEDSIDE. TAKES OFF O2 DEVICE. REFUSES TO WEAR.
--- NOTE | 2018-10-24 01:25 | NUR ---
IV FLUIDS CHANGED TO 1/2 NS AT 50CC'S/HR
--- NOTE | 2018-10-24 01:45 | NUR ---
SEVERAL ATTEMPTS HAVE BEEN MADE TO DON BIPAP. PT APPEARS EXTREMELY CONFUSED AND CONTINUES TO TEAR MASK APART. PT HAS BEEN FOUND BITING THE OXYGEN TUBING. SUPPLEMENTAL O2 NASAL CANNULA 4L PT SPO2 96 NO IMMEDIATE S/S RESP DISTRESS AT THIS TIME
--- NOTE | 2018-10-24 03:36 | NUR ---
CONTINUES TO SET OFF BED ALARM WITH ATTEMPTS OF CLIMBING OUT OF BED.STARTING TO BECOME VERY AGITATED AT THE STAFF. GEODON 10MG IM GIVEN TO RT HIP. BEDSIDE ABG'S DONE PER RT TECH.
--- NOTE | 2018-10-24 04:29 | NUR ---
PATIENT CALM NOW RESTING IN BED. DENIES NEEDS. O2 TURNED DOWN TO 2L/M PER ABG RESULTS.
[2018-10-24 05:25] VITALS: BP 145/75
[2018-10-24 06:16] LABS: BASOPHILS 0 % (0-2); EOSINOPHILS 0 % (0-7); HEMATOCRIT 34.7 % (42.0-54.0); IMMATURE GRANULOCYTES 0.3 % (0-5); LYMPHOCYTES 5.7 % (15-50); MCH 26.4 pg (26.0-34.0); MCHC 31.7 g/dL (31.0-37.0); MCV 83.2 fL (80.0-100.0); MEAN PLATELET VOLUME 10.8 fL (7.4-10.4); MONOCYTES 7.7 % (2-11); NEUTROPHILS 86.3 % (40-80); PLATELET COUNT 324 10x3/uL (130-400); RBC 4.17 10x6/uL (4.20-6.10); RDW 16.3 % (11.5-14.5); WBC 11.1 10x3/uL (4.8-10.8)
[2018-10-24 06:27] LABS: ALBUMIN 3.5 g/dL (3.4-5.0); ANION GAP 10.6 mmol/L (8-16); BILIRUBIN - TOTAL 0.33 mg/dL (0.2-1.3); CALCIUM 10.5 mg/dL (8.5-10.1); CREATININE - SERUM 1.3 mg/dL (0.6-1.3); POTASSIUM - SERUM 4.6 mmol/L (3.5-5.1); PROTEIN - SERUM 7.5 g/dL (6.4-8.2)
--- NOTE | 2018-10-24 08:00 | NUR ---
ASSESSMENT PER FLOW SHEET. PT IS WITHOUT DISTRESS.HE IS RESTING AT PRESENT. FALL PREVENTION IN PLACE WITH JAY AND BED ALARM
--- NOTE | 2018-10-24 09:00 | NUR ---
HAS BEEN UP MULTIPLE TIMES WITH ALARMS SOUNDING.PT PLACED BACK IN BED. FALL PREVENTION IN PLACE
[2018-10-24 09:19] VITALS: BP 145/72
--- NOTE | 2018-10-24 10:00 | NUR ---
SPOKE WITH FAMILY, P[employer] CONFIRMED. SON GILBERT TO FAX POA PAPERS FOR CHART. PT STATUS UPDATE GIVEN. ALSO ASK IF THERE WAS ANYONE WHO COULD COME SIT WITH HIM TO CALM HIM.
--- NOTE | 2018-10-24 10:00 | EC ---
PATIENT:Zuhair GOINS JR DATE OF SERVICE: 10/22/18 SEX: M MEDICAL RECORD: [id number] DATE OF : [birth year] LOCATION:D.MS Pan221 AGE OF PATIENT: 83 ADMISSION DATE: 10/22/18 REFERRING PHYSICIAN: INTERPRETING PHYSICIAN: TATIANA JOE MD ECHOCARDIOGRAM REPORT ECHO CHARGES 5 ECHO LIMITED Date: 10/23/18 CLINICAL DIAGNOSIS: AL ECHOCARDIOGRAPHIC MEASUREMENTS (adult normal given) AC root (d.<3.7cm) 2.9 cm LV Septum d (<1.2 cm> 1.4 cm Valve Excursion 0.9 cm LV Septum (systole) 1.8 cm Left Atria (s.<4.0cm> 3.8 cm LVPW d(<1.2cm) 1.6 cm RV (d.<2.3cm) 3.6 cm LVPW (sytole) 1.7 cm LV diastole(<5.6CM) 3.9 cm MV E-F(>70mm/sec) cm LV systole 2.2 cm LVOT Diameter cm MV exc.(>10mm) cm Est.ejection fraction (50-75%) % DOPPLER: LVIT cm/sec A cm/sec E cm/sec LA cm/sec RVSP 26 mmHg LVOT cm/sec AOP1/2T m/s Asc. Ao cm/sec RVOT cm/sec RA cm/sec PA cm/sec AV Gradient Peak mmHg AV Mean mmHg AV Area cm MV Gradient Peak mmHg MV Mean mmHg MV Area cm COMMENTS: Insole Lip Turner: Dong MCGARRY Laundry Route Driver: 1 Dr. Joe TAPE# PACS Pericardial Effusion N DATE OF SERVICE: FINDINGS: 1. Left ventricular chamber size is within normal limits. Left ventricular systolic function is normal. Overall ejection fraction estimated at 60%. 2. Left atrium, right atrium, right ventricle chamber size is within normal limits. 3. Valvular structures have normal structure and motion. 4. Doppler interrogation reveals no significant valvular insufficiency or stenosis. ECHOCARDIOGRAM REPORT [id number] GOINSZuhair Dex ANGELES 5. No evidence of pericardial effusion or left ventricular thrombus. TRANSINT:[id number] Voice Confirmation ID: [id number] DOCUMENT ID: [id number] TATIANA JOE MD at 1000 CC: [id number] DICTATION DATE: 10/23/18 1601 INTERNATIONAL NURSE: 10/24/18 0014 ADM IN [facility] [address] [facility]
[2018-10-24 12:56] VITALS: BP 138/68
--- NOTE | 2018-10-24 14:44 | NUR ---
MEDS ORDERED FOR ANXIETY. PT IS PULLING AT IV AND 02 TUBING. HE HAS BEEN UP AT BEDSIDE,VOIDING IN FLOOR.WHEN INSTRUCTED TO GET BACK TO BED HE BECOMES ANGRY. MEDS ORDERED
--- NOTE | 2018-10-24 14:50 | NUR ---
URINE TO LAB ORDERED.IN AND OUT CATH, RECOVERY ANALYST
[2018-10-24 15:34] LABS: APPEARANCE CLEAR (CLEAR); BILIRUBIN NEGATIVE (NEGATIVE); COLOR YELLOW (YELLOW); GLUCOSE NEGATIVE (NEGATIVE); KETONE NEGATIVE (NEGATIVE); NITRITE NEGATIVE (NEGATIVE); PROTEIN NEGATIVE (NEGATIVE); UROBILINOGEN NORMAL (NORMAL)
[2018-10-24 15:35] LABS: RED CELLS - URINE 0-5 /hpf (0-5); WHITE CELLS - URINE OCC /hpf (0-5)
--- NOTE | 2018-10-24 18:00 | NUR ---
FAMILY REMAINS AT BEDSIDE. PT IS WITHOUT DISTRESS. CONT PLAN OF CARE
[2018-10-24 18:33] VITALS: BP 130/68
--- NOTE | 2018-10-24 20:00 | NUR ---
ASSESSMENT PER FLOWSHEET. PATIENT IN BED EYES CLOSED RESPIRATIONS WITH EASE [facility]ILY MEMBERS GETTING READY TO LEAVE. IV PATENT LEFT ARM OF 1/2NS AT 50CC'S/HR. JAY BED ALARM MAT IN USE AND BED ALARM BED ACTIVATED. SR UP X2 CALL LIGHT WITHIN REACH. O2 ON 2 L/M PER NC.
--- NOTE | 2018-10-24 21:30 | NUR ---
MEDS GIVEN PER JUN. PATIENT HAS ALREADY CLIMBED OUT OF BED TWICE GETS VERY AGITATED WHEN ASSISTED BACK TO BED FOUND PATENT STANDING NEXT TO SINK PEEING INTO THE SINK.CLEANED AND GOWN CHANGED ASSISTED BACK TO BED SR UP X2 ALARMS RESET TO BED ALARM.
[2018-10-24 21:50] VITALS: BP 143/64
--- NOTE | 2018-10-25 00:02 | NUR ---
IN BED AT THIS TIME TURNS SELF IN BED TO ACTIVATE ALARMS. PT VERY CONFUSED X3
[2018-10-25 05:10] LABS: BASOPHILS 0 % (0-2); EOSINOPHILS 0 % (0-7); HEMOGLOBIN 11.5 g/dL (13.5-17.5); IMMATURE GRANULOCYTES 0.1 % (0-5); LYMPHOCYTES 10.4 % (15-50); MCH 26.5 pg (26.0-34.0); MCHC 31.9 g/dL (31.0-37.0); MCV 82.9 fL (80.0-100.0); MEAN PLATELET VOLUME 11.5 fL (7.4-10.4); MONOCYTES 12.6 % (2-11); NEUTROPHILS 76.9 % (40-80); PLATELET COUNT 366 10x3/uL (130-400); RBC 4.34 10x6/uL (4.20-6.10); RDW 16.3 % (11.5-14.5)
[2018-10-25 05:29] VITALS: BP 136/83
[2018-10-25 05:29] LABS: WBC 14.2 10x3/uL (4.8-10.8)
[2018-10-25 05:47] LABS: ALBUMIN 3.4 g/dL (3.4-5.0); ANION GAP 12.5 mmol/L (8-16); BILIRUBIN - TOTAL 0.35 mg/dL (0.2-1.3); CALCIUM 10.3 mg/dL (8.5-10.1); CARBON DIOXIDE 30.7 mmol/L (21.0-32.0); CREATININE - SERUM 1.3 mg/dL (0.6-1.3); POTASSIUM - SERUM 4.2 mmol/L (3.5-5.1); PROTEIN - SERUM 7.1 g/dL (6.4-8.2)
--- NOTE | 2018-10-25 06:28 | NUR ---
CALM COOPERATIVE MEDS GIVEN PER JUN.
--- NOTE | 2018-10-25 07:30 | NUR ---
RECEIVED REPORT. LYING IN BED SUPINE EYES CLOSED RESTING. RR EVEN AND UNLABORED. CONTINUES ON 2L VIA NC. LEFT FOREARM IV 1/2NS @ 50ML/HR. CALL LIGHT WITHIN REACH, FALL PRECAUTIONS IN PLACE. WILL CONTINUE TO MONITOR
--- NOTE | 2018-10-25 08:21 | CN ---
PATIENT NAME:Zuhair GOINS JR MEDICAL RECORD: [id number] : [birth year] LOCATION:D.MS Pan2219 ADMIT DATE: 10/22/18 ACCOUNT: [id number] CONSULTING PHYSICIAN: KAYLYN MANSFIELD MD REFERRING PHYSICIAN: JAYNE HANKS MD DATE OF CONSULTATION: 10/24/2018 IDENTIFYING DATA: The patient is 83 years old. He is admitted to the hospital after a fall. CHIEF COMPLAINT: None. HISTORY OF PRESENT ILLNESS: The patient has COPD, coronary artery disease, hypertension, and congestive heart failure. He apparently fell at home and he is currently admitted to the hospital for an exacerbation of his COPD. I am consulted because the patient has been quite confused. Indeed on interview, he continues to show confusion. He does not know the date. He knows he is in the hospital. He does not know where he is from that is to say he cannot name the town even though he struggles to recall it. He clearly has a significantly abnormal mental status examination with impairment of his short-term and long-term memory. He denies any alcohol abuse and certainly has no behavior problems or thoughts of harming himself or others. MENTAL STATUS EXAMINATION: The patient is awake, alert, and oriented to person and somewhat to situation. His mood is euthymic. His affect appropriate. Thought processes are poorly organized. Memory, concentration, and abstraction abilities are significantly and seriously impaired. He denies any intent to harm himself or others and has no psychotic symptoms. ASSESSMENT: Major neurocognitive disorder of the Alzheimer's type. PLAN: The patient is cognitively impaired and has a progressive dementia. I do not see any significant evidence of delirium nor do I see any evidence of acute or direct dangerousness. He is in need of 27-kkxc-m-day supervision. He does not have symptoms that would warrant his admission to the behavioral unit unless there is something about his behavior that I have inadvertently missed. I observe nothing. academic services coordinator should be involved. The patient tells me his lives with him and that he has 2 children that live at home with him. Well it is possible that an adult child may live with him or he may live with his one of his children, it seems unlikely that all of them would be living together. His children must be in their 60s or around that age. This patient needs 01-aqza-a-day supervision and assistance with activities of daily living. academic services coordinator should be involved to ensure that the home setting can meet those needs. In addition to this, I would recommend starting him on a cholinesterase inhibitor, specifically Aricept 5 mg at bedtime. TRANSINT:[id number] Voice Confirmation ID: [id number] DOCUMENT ID: [id number] CONSULT REPORT [id number] Zuhair GOINS JR, PETER MD at 0821 CC: [id number] DICTATION DATE: 10/24/18 1305 SLURRY BLENDER: 10/24/18 1347 ADM IN [facility] [address] [place] [address]
[2018-10-25 09:09] VITALS: BP 152/71
--- NOTE | 2018-10-25 11:32 | NUR ---
ASSESSMENT PER FLOW SHEET. PT IS WITHOUT DISTRESS. ALERT TO NAME,BUT THINKS HE IS AT LONG-TERM.TOLD PT HE IS AT HOSPITAL GETTING BETTER AFTER FALL AT HOME.FALL PREVENTION IN PLACE WITH JAY AND BED ALARM.DOOR OPEN TO MONITOR
[2018-10-25 13:28] VITALS: BP 150/77
--- NOTE | 2018-10-25 14:28 | NUR ---
Nutrition Follow Up: Pt stated that his appetite is poor. He said that he does not feel hungry. Pt agreed to try Ensure and prefers vanilla. RD encouraged pt to increase po intake as able and to make staff aware of food preferences. Diet: AHA Mech Soft PO Intake: 8% meal avg BM: 10/23/18 Meds and Labs reviewed Rec changing diet to regular mech soft to encourage po intake. Rec consider an appetite stimulant. Will order Ensure TID. RD following.
[2018-10-25 16:17] VITALS: BP 127/75
--- NOTE | 2018-10-25 17:30 | NUR ---
SITTING UP IN BED WATCHING TV. DENIES ANY NEEDS OR PAIN. CONTINUES ON 2L VIA NC. CALL LIGHT WITHIN REACH, FALL PRECAUTIONS IN PLACE. WILL CONTINUE TO MONITOR
[2018-10-25 20:38] VITALS: BP 122/65
--- NOTE | 2018-10-25 20:42 | NUR ---
PT C/O HEADACHE PAIN 12/08. GAVE TYLENOL AND SCHEDULED MEDS. PT ALERT WITH MEMORY DEFICITS. CONFUSED A LITTLE AT TIMES. COMPLETE ASSESSMENT PER FLOWSHEET. NO OTHER NEEDS. WILL CONTINUE TO MONITOR.
[2018-10-26 01:22] VITALS: BP 159/63
[2018-10-26 05:40] VITALS: BP 152/93
--- NOTE | 2018-10-26 07:00 | NUR ---
PATIENT IN BED WITH EYES CLOSED RESTING QUIETLY AT THIS TIME. IV INTACT. CALL LIGHT WIHTIN REACH.
[2018-10-26 07:42] LABS: BASOPHILS 0 % (0-2); EOSINOPHILS 0 % (0-7); HEMATOCRIT 33.2 % (42.0-54.0); HEMOGLOBIN 10.7 g/dL (13.5-17.5); IMMATURE GRANULOCYTES 0.2 % (0-5); LYMPHOCYTES 9.5 % (15-50); MCH 26.5 pg (26.0-34.0); MCHC 32.2 g/dL (31.0-37.0); MCV 82.2 fL (80.0-100.0); NEUTROPHILS 79.3 % (40-80); PLATELET COUNT 314 10x3/uL (130-400); RBC 4.04 10x6/uL (4.20-6.10)
[2018-10-26 07:44] LABS: ALBUMIN 2.9 g/dL (3.4-5.0); ANION GAP 9.9 mmol/L (8-16); BILIRUBIN - TOTAL 0.38 mg/dL (0.2-1.3); CALCIUM 9.7 mg/dL (8.5-10.1); CREATININE - SERUM 1.1 mg/dL (0.6-1.3); POTASSIUM - SERUM 3.9 mmol/L (3.5-5.1); PROTEIN - SERUM 6.3 g/dL (6.4-8.2)
[2018-10-26 07:55] LABS: WBC 10.1 10x3/uL (4.8-10.8)
[2018-10-26 08:50] VITALS: BP 142/67
--- NOTE | 2018-10-26 12:23 | MORECARE ---
CASE MANAGEMENT DISCHARGE SUMMARY PATIENT: Zuhair GONZALEZ JR UNIT: [id number] ADM DATE: 10/22/18 AGE: 83 : 34 SEX: M ROOM/BED: D.2219 AUTHOR: ALYDOC PHYSICIAN: REFERRING PHYSICIAN: JAYNE HANKS MD DATE OF SERVICE: 10/26/18 Discharge Plan Patient Name: Zuhair GONZALEZ Facility: [facility]:[place] : 1935 Planned Disposition: Inpatient Rehab Facility Anticipated Discharge Date: 10/24/18 Discharge Date: Expected LOS: 2 Initial Reviewer: [email or web address] Initial Review Date: 10/22/2018 Generated: 10/26/18 1:23 pm DCP- Discharge Planning Updated by [id number]: Virgen Chaves on 10/22/18 12:[address] Patient Name: Zuhair GONZALEZ Admission Status: ER Accout number: [id number] Admission Date: 10-22-2018 : 1935 Admission Diagnosis: Attending: JAYNE HANKS Current LOS: 1 Anticipated DC Date: 10-24-2018 Planned Disposition: Inpatient Rehab Facility Primary Insurance: MEDICARE A & B Discharge Planning Comments: CM met with patient to complete initial dc planning assessment. CM educated patient on the CM role and verbal consent given by patient to complete assessment. CM verified patient's address, phone number, and emergency contact phone numbers. Patient lives at home alone and said he was independent in his care until today. Patient with BIPAP in use and having a difficult time answering questions. CM contacted his son who reported the patient was just discharged from home health services. He could not remember which agency his father had. He reported he had a security representative, unsure who, come to his father's house to see if he qualified for assisted living. He stated the rep for the stated said he was able to self care for himself at home. CM not sure who this rep was working for of who the rep was representing. At [place] feels his dad needs rehab. He stated his dad was at [facility] in June and he stated his dad said he would never go back to rehab. [place] feels his dad need rehab at discharge. CM unable to discuss this information with the patient at this time. Once patient able to talk and have a conversation cm will discuss rehab options with patient to determine a safe dc plan. CM will continue to follow and will assist as needed with dc plans/needs Sample Puller: Virgen Chaves RN, [facility] DCPIA - Discharge Planning Initial Assessment Updated by [id number]: Virgen Chaves on 10/22/18 12:55 pm * Is the patient Alert and Oriented? Yes * PCP Dr. Cortes * Pharmacy [facility] * Preadmission Environment Home Alone * ADLs Independent * Equipment Oxygen Rolling Walker * Other Equipment [employer] is oxygen provider * List name and contact numbers for known caregivers / representatives who currently or will assist patient after discharge: Andrea Gonzalez - son - [phone] Ed Gonzalez - magdiel - [phone] * Verbal permission to speak to the caregivers and representatives has been obtained from the patient. Yes * Community resources currently utilized Other * Please name any agencies selected above. Son reported HH just dc him from services. He stated patient needs rehab but his father said he would never go back to a intermediate. * Additional services required to return to the preadmission environment? Yes * Can the patient safely return to the preadmission environment? No * Has this patient been hospitalized within the prior 30 days at any hospital? No External Providers External Provider: [facility] Next Contact Date: Service Request Date: Service Type: Resolution: Reviewer: Comments: Coverage Notice Reviewer: [email or web address] Kathi Madera Notice Issued Date-Time: 10/26/2018 12:13 Notice Type: Patient Choice Letter Notice Delivered To: Family Member Relationship to Patient: Accounting Manager Name: Delivery Method: PHONE - Phone Maisha Days: Prior Verbal Notification: Recipient Understood Notice: Yes Recipient Signature: Med Rec Note Co-signed by Attending: Coverage Notice Comment: SON ANDREA GONZALEZ WANTS [facility]. Last DP export: 10/22/18 12:05 p Patient Name: Zuhair GONZALEZ Page [id number] at 1223 All edits/amendments must be made on the electronic document DICTATION DATE: 10/26/18 1223 LOG RIDER: RIO 10/26/18 1223 RPT#: [id number] DC DATE: STATUS: ADM IN [facility] [address] [place] [address] END OF REPORT
[2018-10-26 12:57] VITALS: BP 148/81
[2018-10-26 16:58] VITALS: BP 145/75
--- NOTE | 2018-10-26 19:04 | NUR ---
STRAIGHT CATH DONE BY ARANZA RANDLE AT THIS TIME. URINE SENT TO LAB.
[2018-10-26 20:00] VITALS: BP 148/73
--- NOTE | 2018-10-26 22:49 | NUR ---
PT ALERT & ORIENTED. PT HAS TREMORS IN HANDS/ARMS. OXYGEN @ 2L/NC. C/O GENERALIZED PAIN 12/08. GAVE TYLENOL 650 MG PO. PT VOIDED IN URINAL. NO OTHER NEEDS. WILL CONTINUE TO MONITOR.
[2018-10-27] VITALS: BP 140/69
[2018-10-27 04:00] VITALS: BP 195/98
[2018-10-27 07:50] LABS: BASOPHILS 0 % (0-2); EOSINOPHILS 0.5 % (0-7); HEMATOCRIT 33.4 % (42.0-54.0); HEMOGLOBIN 10.9 g/dL (13.5-17.5); IMMATURE GRANULOCYTES 0.2 % (0-5); LYMPHOCYTES 11.7 % (15-50); MCH 26.8 pg (26.0-34.0); MCHC 32.6 g/dL (31.0-37.0); MCV 82.1 fL (80.0-100.0); MEAN PLATELET VOLUME 10.9 fL (7.4-10.4); MONOCYTES 9.4 % (2-11); NEUTROPHILS 78.2 % (40-80); PLATELET COUNT 281 10x3/uL (130-400); RBC 4.07 10x6/uL (4.20-6.10); RDW 15.9 % (11.5-14.5); WBC 8.7 10x3/uL (4.8-10.8)
[2018-10-27 08:14] LABS: ALKALINE PHOSPHATASE 64 U/L (46-116); ALT (SGPT) 31 U/L (10-68); BILIRUBIN - TOTAL 0.39 mg/dL (0.2-1.3); CALC OSMOLALITY 280 mosm/kg (275-300); CALCIUM 9.6 mg/dL (8.5-10.1); CARBON DIOXIDE 29.2 mmol/L (21.0-32.0); CHLORIDE - SERUM 102 mmol/L (98-107); GLUCOSE 110 mg/dL (74-106); POTASSIUM - SERUM 4.2 mmol/L (3.5-5.1); PROTEIN - SERUM 5.8 g/dL (6.4-8.2); SODIUM 138 mmol/L (136-145); UREA NITROGEN 25 mg/dL (7-18); eGFR NON AFRICAN AMERICAN 76 mL/min (90-120)
[2018-10-27 08:43] VITALS: BP 135/65
--- NOTE | 2018-10-27 09:54 | NUR ---
REHAB PRESCREENING Rehab referral received and chart reviewed. Mr. Gonzalez is very confused. Rehab will continue to follow for participation with therapy in order to assess admission criteria. This patient will need to be willing and able to participate in the required 3 hours of therapy. Thank you for this referral! Lisa Kc, MEDIA RELATIONS ASSOCIATE Rehab PD
[2018-10-27 12:32] VITALS: BP 127/63
--- NOTE | 2018-10-27 13:06 | NUR ---
PT RESTING IN BED. NO SIGNS OF DISTRESS. IV TO LEFT FORARM PATENT NO RENDESS OR TENDERNESS. ON TELEMETRY 81SR. ON 2LNC. HAS LACERATION TO FORHEAD. ALL FALL PRECAUTIONS IN PLACE. DENIES ANY FUTHER NEED AT THIS TIME. CALL LIGHT IN REACH. BED LOW POSITION. NO FAMILY AT BEDSIDE AT THIS TIME
[2018-10-27 16:59] VITALS: BP 140/72
[2018-10-27 20:40] VITALS: BP 138/72
--- NOTE | 2018-10-28 03:00 | NUR ---
PT ALERT & ORIENTED. PT STATES HE WANTS TO GO TO [facility] WHERE HIS RESIDES TO DO HIS REHAB. PUT IN CASE MANAGEMENT CONSULT AND WILL PASS ON IN REPORT.
[2018-10-28 05:44] VITALS: BP 140/73
[2018-10-28 07:22] LABS: BASOPHILS 0 % (0-2); EOSINOPHILS 0.9 % (0-7); HEMATOCRIT 34.8 % (42.0-54.0); HEMOGLOBIN 11.3 g/dL (13.5-17.5); IMMATURE GRANULOCYTES 0.2 % (0-5); LYMPHOCYTES 12.3 % (15-50); MCH 26.7 pg (26.0-34.0); MCHC 32.5 g/dL (31.0-37.0); MCV 82.1 fL (80.0-100.0); MEAN PLATELET VOLUME 10.8 fL (7.4-10.4); MONOCYTES 8.6 % (2-11); PLATELET COUNT 291 10x3/uL (130-400); RBC 4.24 10x6/uL (4.20-6.10); RDW 16.1 % (11.5-14.5); WBC 9.4 10x3/uL (4.8-10.8)
[2018-10-28 07:45] LABS: ANION GAP 8.2 mmol/L (8-16); BILIRUBIN - TOTAL 0.39 mg/dL (0.2-1.3); CALCIUM 9.9 mg/dL (8.5-10.1); CARBON DIOXIDE 31.1 mmol/L (21.0-32.0); CREATININE - SERUM 1.1 mg/dL (0.6-1.3); POTASSIUM - SERUM 4.3 mmol/L (3.5-5.1); PROTEIN - SERUM 6.2 g/dL (6.4-8.2)
[2018-10-28 10:25] VITALS: BP 138/62
--- NOTE | 2018-10-28 11:16 | NUR ---
PT RESTING IN BED. NO SIGNS OF DISTRESS. IV TO LEFT FORARM PATENT NO REDNESS OR TENDERNESS. ON TELEMETRY [address]. ALL FALL PRECAUTIONS IN PLACE. HAS LACERATION TO FORHEAD STICHES. DENIES ANY FUTHER NEED AT THIS TIME.CALL LIGHT IN REACH. BED LOW POSITION. NO FAMILY AT BEDSIDE AT THIS TIME.
[2018-10-28 15:42] VITALS: BP 142/63
--- NOTE | 2018-10-28 19:11 | NUR ---
I have reviewed this patient and I concur with the Shift Assessment completed by the Licensed Practical Nurse today this shift.
--- NOTE | 2018-10-28 21:00 | NUR ---
PT ALERT & ORIENTED. SITTING UP IN BED WATCHING TV. C/O GENERALIZED PAIN 12/08. GAVE TYLENOL 650 MG PO. ASSESSMENT COMPLETE PER FLOW-SHEET. NO OTHER NEEDS. WILL CONTINUE TO MONITOR.
[2018-10-28 21:22] VITALS: BP 144/59
[2018-10-29 01:06] VITALS: BP 142/63
[2018-10-29 04:56] VITALS: BP 164/50
[2018-10-29 06:41] LABS: BASOPHILS 0 % (0-2); EOSINOPHILS 1.7 % (0-7); HEMATOCRIT 32.7 % (42.0-54.0); HEMOGLOBIN 10.6 g/dL (13.5-17.5); IMMATURE GRANULOCYTES 0.3 % (0-5); LYMPHOCYTES 12.5 % (15-50); MCHC 32.4 g/dL (31.0-37.0); MCV 80.3 fL (80.0-100.0); MEAN PLATELET VOLUME 10.5 fL (7.4-10.4); MONOCYTES 10.2 % (2-11); NEUTROPHILS 75.3 % (40-80); PLATELET COUNT 270 10x3/uL (130-400); RBC 4.07 10x6/uL (4.20-6.10); WBC 11.3 10x3/uL (4.8-10.8)
[2018-10-29 06:54] LABS: ALBUMIN 2.8 g/dL (3.4-5.0); ALKALINE PHOSPHATASE 55 U/L (46-116); ALT (SGPT) 23 U/L (10-68); BILIRUBIN - TOTAL 0.33 mg/dL (0.2-1.3); CALC OSMOLALITY 286 mosm/kg (275-300); CALCIUM 10.2 mg/dL (8.5-10.1); CARBON DIOXIDE 28.3 mmol/L (21.0-32.0); CHLORIDE - SERUM 107 mmol/L (98-107); GLUCOSE 96 mg/dL (74-106); SODIUM 142 mmol/L (136-145); UREA NITROGEN 24 mg/dL (7-18); eGFR NON AFRICAN AMERICAN 76 mL/min (90-120)
--- NOTE | 2018-10-29 07:13 | NUR ---
LATE ENTRY FOR 10/22/18, STOP TIME FOR ORDERED ROCEPHIN 1338.
[2018-10-29 07:19] LABS: POTASSIUM - SERUM 3.6 mmol/L (3.5-5.1)
--- NOTE | 2018-10-29 09:50 | CN ---
PATIENT NAME:Zuhair GOISN JR MEDICAL RECORD: [id number] : 33 LOCATION:D.MS [id number] ADMIT DATE: 10/22/18 ACCOUNT: [id number] CONSULTING PHYSICIAN: TATIANA CRUZ MD REFERRING PHYSICIAN: JAYNE HANKS MD DATE OF CONSULTATION: 10/27/2018 CARDIOLOGY CONSULTATION DIAGNOSES: Syncope, coronary artery disease, previous percutaneous transluminal coronary angioplasty stent, chronic obstructive pulmonary disease, hyperlipidemia, carotid vascular disease. HISTORY OF PRESENT ILLNESS: This is a gentleman who presents with episode of syncope and a scalp laceration, has not had any cardiac symptomatology. His EKG is normal. Troponin is normal. He has had no dysrhythmias since being in. Systolic blood pressure is in the 130s, heart rate is in the 90s, sinus rhythm. PHYSICAL EXAMINATION: GENERAL APPEARANCE: Well-nourished, well-developed, appears stated age. Level of distress, comfortable. PSYCHIATRIC: Mental status, alert, normal affect. Orientation, oriented to time, place and person. EYES: Lids and conjunctiva, noninjected. No discharge, no pallor. ENT: Lips, teeth, gums, normal dentition. Oropharynx, no cyanosis, no pallor. NECK: Carotid arteries, bilateral normal upstroke, no bruits, no thrills. JUGULAR VEINS: No jugular venous pressure or distention. CERVICAL LYMPH NODES: Nontender, nonenlarged. THYROID: Not enlarged. Nontender. No nodules. LUNGS: Respiratory effort, unlabored. CHEST: Normal curvature. No thoracic deformity. No chest wall tenderness. Percussion, resonant. Auscultation, clear. No wheezes, no rales, no rhonchi. CARDIOVASCULAR: Precordial exam, nondisplaced. No heaves or pericardial thrills. Rate and rhythm, regular. Heart sounds, normal S1, normal S2. No S3, no gallop, no rub. Systolic murmur, not heard. Diastolic murmur, not heard. EXTREMITIES: No cyanosis, no edema. Peripheral pulses, full and equal in all extremities, except as noted. No bruits appreciated. ABDOMEN: Soft, nondistended. Normal aorta. No bruit. Nontender. No masses. Liver, nontender, no hepatomegaly. Spleen, nontender, no splenomegaly. MUSCULOSKELETAL: No joint tenderness. No joint swelling. No erythema. NEUROLOGICAL: Normal gait, normal strength, normal tone. SKIN: Warm and dry. OVERALL IMPRESSION: Syncope, unknown etiology. At this time, no reason to think this is a cardiac etiology. He recently had an echocardiogram that was normal as well. He had a telemetry that has been normal. At this time, no other cardiac workup or treatment is necessary. TRANSINT:[id number] Voice Confirmation ID: [id number] DOCUMENT ID: [id number] CONSULT REPORT [id number] Zuhair GOINS JR, JEFFREY MD at 0950 CC: [id number] DICTATION DATE: 10/27/1850 PAINTER SET: 10/27/18 1011 ADM IN [place] [id number] [place] [address]
[2018-10-29 10:15] VITALS: BP 137/68
[2018-10-29 12:28] VITALS: BP 140/60
--- NOTE | 2018-10-29 12:34 | MORECARE ---
CASE MANAGEMENT DISCHARGE SUMMARY PATIENT: Zuhair GOINS JR UNIT: [id number] ADM DATE: 10/22/18 AGE: 83 : 34 SEX: M ROOM/BED: D.2219 AUTHOR: ALYDOC PHYSICIAN: REFERRING PHYSICIAN: JAYNE HANKS MD DATE OF SERVICE: 10/29/18 Discharge Plan Patient Name: Zuhair GOINS Facility: [facility]:[place] : 1935 Planned Disposition: Inpatient Rehab Facility Anticipated Discharge Date: 10/24/18 Discharge Date: Expected LOS: 2 Initial Reviewer: [email or web address] Initial Review Date: 10/22/2018 Generated: 10/29/18 1:34 pm Comments DCP- Discharge Planning Updated by [id number]: Adrienne Madera on 10/29/18 11:[address] Patient Name: Zuhair GOINS Admission Status: ER Accout number: [id number] Admission Date: 10-22-2018 : 1935 Admission Diagnosis:CHRONIC OBSTRUCTIVE PULMONARY DISEASE W (ACUTE) EXACERB Attending: JAYNE HANKS Current LOS: 7 Anticipated DC Date: 10-24-2018 Planned Disposition: Inpatient Rehab Facility Primary Insurance: MEDICARE A & B Discharge Planning Comments: CM FAXING REFERRAL TO [facility], THAT IS WHERE THE PATIENT SON AND PATIENT WANTS TO GO. HIS IS AT [facility] IN A FULL STACK JAVA DEVELOPER BED. CM TO FOLLOW AND ASSIST NEEDED. WILL WAIT FOR CALL BACK FROM [facility]. Registered Nurse: Adrienne Madera DCP- Discharge Planning Updated by [email or web address]: Virgen Chaves on 10/22/18 12:[address] Patient Name: Zuhair GOINS Admission Status: ER Accout number: [id number] Admission Date: 10-22-2018 : 1935 Admission Diagnosis: Attending: JAYNE HANKS Current LOS: 1 Anticipated DC Date: 10-24-2018 Planned Disposition: Inpatient Rehab Facility Primary Insurance: MEDICARE A & B Discharge Planning Comments: CM met with patient to complete initial dc planning assessment. CM educated patient on the CM role and verbal consent given by patient to complete assessment. CM verified patient's address, phone number, and emergency contact phone numbers. Patient lives at home alone and said he was independent in his care until today. Patient with BIPAP in use and having a difficult time answering questions. CM contacted his son who reported the patient was just discharged from home health services. He could not remember which HH agency his father had. He reported he had a small business sales representative, unsure who, come to his father's house to see if he qualified for assisted living. He stated the rep for the stated said he was able to self care for himself at home. CM not sure who this rep was working for of who the rep was representing. At [place] feels his dad needs rehab. He stated his dad was at [facility] in June and he stated his dad said he would never go back to rehab. Andrea feels his dad need rehab at discharge. CM unable to discuss this information with the patient at this time. Once patient able to talk and have a conversation cm will discuss rehab options with patient to determine a safe dc plan. CM will continue to follow and will assist as needed with dc plans/needs Registered Nurse: Virgen Chaves RN, [facility] DCPIA - Discharge Planning Initial Assessment Updated by [email or web address]: Virgen Chaves on 10/22/18 12:55 pm * Is the patient Alert and Oriented? Yes * PCP Dr. Cortes * Pharmacy [facility] * Preadmission Environment Home Alone * ADLs Independent * Equipment Oxygen Rolling Walker * Other Equipment [employer] is oxygen provider * List name and contact numbers for known caregivers / representatives who currently or will assist patient after discharge: Andrea or Cindy veloz - [phone] Ed veloz - [phone] * Verbal permission to speak to the caregivers and representatives has been obtained from the patient. Yes * Community resources currently utilized Other * Please name any agencies selected above. Son reported HH just dc him from services. He stated patient needs rehab but his father said he would never go back to a fci. * Additional services required to return to the preadmission environment? Yes * Can the patient safely return to the preadmission environment? No * Has this patient been hospitalized within the prior 30 days at any hospital? No Coverage Notice Reviewer: [id number] Kathi Madera Notice Issued Date-Time: 10/26/2018 12:13 Notice Type: Patient Choice Letter Notice Delivered To: Family Member Relationship to Patient: Mechanical Engineering Director Name: Delivery Method: PHONE - Phone Maisha Days: Prior Verbal Notification: Recipient Understood Notice: Yes Recipient Signature: Med Rec Note Co-signed by Attending: Coverage Notice Comment: SON ANDREA GOINS WANTS [facility]. Last DP export: 10/26/18 11:23 a Patient Name: Zuhair GOINS Page [id number] at 1234 All edits/amendments must be made on the electronic document DICTATION DATE: 10/29/18 1233 GRANTS OFFICER: RIO 10/29/18 1233 RPT#: [id number] DC DATE: STATUS: ADM IN [facility] [address] [place] [address] END OF REPORT
--- NOTE | 2018-10-29 13:01 | NUR ---
Rehab Note- The patient and son are wanting the patient to go to [facility] where the patient's is in a LTC bed there. THank you for this referral! Miya Mckeon RN Clinical Liaison, [facility] Rehab
[2018-10-29 17:30] VITALS: BP 115/61
--- NOTE | 2018-10-29 18:55 | NUR ---
I have reviewed this patient and I concur with the Shift Assessment completed by the Licensed Practical Nurse today this shift.
--- NOTE | 2018-10-29 20:00 | NUR ---
ASSESSMENT PER FLOWSHEET. IV PATENT LEFT FOREARM SALNE LOCKED. JAY MAT TO BED ALARMS SET. SR UP X2 CALL LIGHT WITHIN REACH YELLOW SAFETY MEASURES IN USE. VOIDS IN URINAL.
[2018-10-29 20:31] VITALS: BP 130/68
--- NOTE | 2018-10-29 22:00 | NUR ---
MEDS GIVEN PER [facility] ALERT CALM AND COOPERATIVE
--- NOTE | 2018-10-30 01:10 | NUR ---
VOIDED UA SPECIMEN OBTAINED AND SENT TO LAB.
[2018-10-30 01:17] VITALS: BP 153/71
[2018-10-30 02:08] LABS: APPEARANCE CLEAR (CLEAR); BILIRUBIN NEGATIVE (NEGATIVE); COLOR YELLOW (YELLOW); GLUCOSE 100 mg/dL (NEGATIVE); KETONE NEGATIVE (NEGATIVE); NITRITE NEGATIVE (NEGATIVE); PROTEIN NEGATIVE (NEGATIVE); SPECIFIC GRAVITY 1.015 (1.005-1.020); UROBILINOGEN NORMAL (NORMAL)
[2018-10-30 05:20] VITALS: BP 150/73
[2018-10-30 06:32] LABS: BASOPHILS 0 % (0-2); EOSINOPHILS 1.5 % (0-7); HEMATOCRIT 31.4 % (42.0-54.0); HEMOGLOBIN 10.3 g/dL (13.5-17.5); IMMATURE GRANULOCYTES 0.2 % (0-5); LYMPHOCYTES 13.6 % (15-50); MCH 26.4 pg (26.0-34.0); MCHC 32.8 g/dL (31.0-37.0); MCV 80.5 fL (80.0-100.0); MEAN PLATELET VOLUME 10.6 fL (7.4-10.4); MONOCYTES 8.7 % (2-11); PLATELET COUNT 295 10x3/uL (130-400); RDW 16.6 % (11.5-14.5); WBC 10.5 10x3/uL (4.8-10.8)
[2018-10-30 07:03] LABS: ALBUMIN 2.7 g/dL (3.4-5.0); ANION GAP 10.9 mmol/L (8-16); BILIRUBIN - TOTAL 0.24 mg/dL (0.2-1.3); CALCIUM 9.4 mg/dL (8.5-10.1); CARBON DIOXIDE 25.4 mmol/L (21.0-32.0); CREATININE - SERUM 1.1 mg/dL (0.6-1.3); POTASSIUM - SERUM 3.3 mmol/L (3.5-5.1); PROTEIN - SERUM 5.7 g/dL (6.4-8.2)
[2018-10-30 08:44] VITALS: BP 139/64
[2018-10-30 12:50] VITALS: BP 145/65
--- NOTE | 2018-10-30 13:43 | NUR ---
SUTURES REMOVED PER EMILY MORSE FROM L BROW AND L RING FINGER. BANDAGE REMOVED WELL FROM 2ND LACERATION TO L RING FINGER, AREA CLEANE AND NEW STERI STRIPS APPLIED TO LOSE SKIN FLAP FOR STABILATION. TOLERATED WELL WITH OUT COMPLAINT.
[2018-10-30] MEDS ORDERED: DONEPEZIL HCL5 MG PO (14:02)
[2018-10-30] MEDS ORDERED: TOPROL XL50 MG PO (14:03)
[2018-10-30] MEDS ORDERED: PREDNISONE10 MG PO (14:04)
[2018-10-30] MEDS ORDERED: MEGACE400 MG/10 PO (14:04)
[2018-10-30] MEDS ORDERED: FUROSEMIDE20 MG PO (14:07)
--- NOTE | 2018-10-30 16:10 | MORECARE ---
CASE MANAGEMENT DISCHARGE SUMMARY PATIENT: Zuhair GONZALEZ JR UNIT: [id number] ADM DATE: 10/22/18 AGE: 83 : 34 SEX: M ROOM/BED: D.2219 AUTHOR: ALYDOC PHYSICIAN: REFERRING PHYSICIAN: JAYNE HANKS MD DATE OF SERVICE: 10/30/18 Discharge Plan Patient Name: Zuhair GONZALEZ Facility: [facility]:[place] : 1935 Planned Disposition: Inpatient Rehab Facility Anticipated Discharge Date: 10/24/18 Discharge Date: Expected LOS: 2 Initial Reviewer: [email or web address] Initial Review Date: 10/22/2018 Generated: 10/30/18 5:09 pm Comments DCP- Discharge Planning Updated by [id number]: Adrienne Madera on 10/30/18 3:[address] Patient Name: Zuhair GONZALEZ Admission Status: ER Accout number: [id number] Admission Date: 10-22-2018 : 1935 Admission Diagnosis:CHRONIC OBSTRUCTIVE PULMONARY DISEASE W (ACUTE) EXACERB Attending: JAYNE HANKS Current LOS: 8 Anticipated DC Date: 10-24-2018 Planned Disposition: Inpatient Rehab Facility Primary Insurance: MEDICARE A & B Discharge Planning Comments: CM SPOKE WITH GARETH AT [facility], STATES CAN'T ACCEPT PATIENT YET, STILL WAITING ON FINANCIALS FROM FAMILY. I CALLED SON AND HE IS GOING TO FIND OUT WHAT [facility] IS NEEDING. Medical Care Manager: Adrienne Madera DCP- Discharge Planning Updated by [id number]: Adrienne Madera on 10/29/18 11:[address] Patient Name: Zuhair GONZALEZ Admission Status: ER Accout number: [id number] Admission Date: 10-22-2018 : 1935 Admission Diagnosis:CHRONIC OBSTRUCTIVE PULMONARY DISEASE W (ACUTE) EXACERB Attending: JAYNE HANKS Current LOS: 7 Anticipated DC Date: 10-24-2018 Planned Disposition: Inpatient Rehab Facility Primary Insurance: MEDICARE A & B Discharge Planning Comments: CM FAXING REFERRAL TO [facility], THAT IS WHERE THE PATIENT SON AND PATIENT WANTS TO GO. HIS IS AT [employer] IN A WATER TREATMENT OPERATOR BED. CM TO FOLLOW AND ASSIST NEEDED. WILL WAIT FOR CALL BACK FROM [facility]. Medical Care Manager: Adrienne Madera DCP- Discharge Planning Updated by [id number]: Virgen Chaves on 10/22/18 12:[address] Patient Name: Zuhair GONZALEZ Admission Status: ER Accout number: [id number] Admission Date: 10-22-2018 : 1935 Admission Diagnosis: Attending: JAYNE HANKS Current LOS: 1 Anticipated DC Date: 10-24-2018 Planned Disposition: Inpatient Rehab Facility Primary Insurance: MEDICARE A & B Discharge Planning Comments: CM met with patient to complete initial dc planning assessment. CM educated patient on the CM role and verbal consent given by patient to complete assessment. CM verified patient's address, phone number, and emergency contact phone numbers. Patient lives at home alone and said he was independent in his care until today. Patient with BIPAP in use and having a difficult time answering questions. CM contacted his son who reported the patient was just discharged from home health services. He could not remember which HH agency his father had. He reported he had a sales service representative, unsure who, come to his father's house to see if he qualified for assisted living. He stated the rep for the stated said he was able to self care for himself at home. CM not sure who this rep was working for of who the rep was representing. At [place] feels his dad needs rehab. He stated his dad was at [facility] in June and he stated his dad said he would never go back to rehab. Andrea feels his dad need rehab at discharge. CM unable to discuss this information with the patient at this time. Once patient able to talk and have a conversation cm will discuss rehab options with patient to determine a safe dc plan. CM will continue to follow and will assist as needed with dc plans/needs Medical Care Manager: Virgen Chaves RN, [facility] DCPIA - Discharge Planning Initial Assessment Updated by [email or web address]: Virgen Chaves on 10/22/18 12:55 pm * Is the patient Alert and Oriented? Yes * PCP Dr. Cortes * Pharmacy [facility] * Preadmission Environment Home Alone * ADLs Independent * Equipment Oxygen Rolling Walker * Other Equipment [employer] is oxygen provider * List name and contact numbers for known caregivers / representatives who currently or will assist patient after discharge: Andrea or Cindy Gonzalez - son - [phone] Ed Gonzalez - son - [phone] * Verbal permission to speak to the caregivers and representatives has been obtained from the patient. Yes * Community resources currently utilized Other * Please name any agencies selected above. Son reported HH just dc him from services. He stated patient needs rehab but his father said he would never go back to a care home. * Additional services required to return to the preadmission environment? Yes * Can the patient safely return to the preadmission environment? No * Has this patient been hospitalized within the prior 30 days at any hospital? No Coverage Notice Reviewer: [email or web address] Kathi Madera Notice Issued Date-Time: 10/26/2018 12:13 Notice Type: Patient Choice Letter Notice Delivered To: Family Member Relationship to Patient: Acid Condenser Name: Delivery Method: PHONE - Phone Maisha Days: Prior Verbal Notification: Recipient Understood Notice: Yes Recipient Signature: Med Rec Note Co-signed by Attending: Coverage Notice Comment: RAJNI GONZALEZ WANTS [facility]. Last DP export: 10/29/18 11:34 am Patient Name: Zuhair GONZALEZ Page [id number] at 1610 All edits/amendments must be made on the electronic document DICTATION DATE: 10/30/181608 SECONDARY SCHOOL REGISTRAR: RIO 10/30/181608 RPT#: [id number] DC DATE: STATUS: ADM IN [facility] [address] [place] [address] END OF REPORT
--- NOTE | 2018-10-30 20:00 | NUR ---
ASSESSMENT PER FLOWSHEET. IV PATENT LEFT FOREARM SALINE LOCKED. JAY BED ALARM ON SR UP X2 CALL LIGHT WITHIN REACH DOOR OPENED. YELLOW SAFETY MEASURE IN USE.
[2018-10-30 20:24] VITALS: BP 140/62
--- NOTE | 2018-10-31 | NUR ---
RESTIGN QUIETLY DENIES NEEDS.
[2018-10-31 00:44] VITALS: BP 137/61
[2018-10-31 04:45] VITALS: BP 154/70
[2018-10-31 06:30] LABS: BASOPHILS 0 % (0-2); EOSINOPHILS 0.9 % (0-7); HEMATOCRIT 31.8 % (42.0-54.0); HEMOGLOBIN 10.4 g/dL (13.5-17.5); IMMATURE GRANULOCYTES 0.3 % (0-5); LYMPHOCYTES 13.3 % (15-50); MCH 26.3 pg (26.0-34.0); MCHC 32.7 g/dL (31.0-37.0); MCV 80.5 fL (80.0-100.0); NEUTROPHILS 77.5 % (40-80); PLATELET COUNT 349 10x3/uL (130-400); RBC 3.95 10x6/uL (4.20-6.10); RDW 16.4 % (11.5-14.5); WBC 11.4 10x3/uL (4.8-10.8)
[2018-10-31 06:46] LABS: ALBUMIN 2.7 g/dL (3.4-5.0); ALKALINE PHOSPHATASE 51 U/L (46-116); ALT (SGPT) 20 U/L (10-68); BILIRUBIN - TOTAL 0.24 mg/dL (0.2-1.3); CALCIUM 9.6 mg/dL (8.5-10.1); CARBON DIOXIDE 25.6 mmol/L (21.0-32.0); CHLORIDE - SERUM 109 mmol/L (98-107); PROTEIN - SERUM 5.9 g/dL (6.4-8.2); SODIUM 140 mmol/L (136-145); UREA NITROGEN 21 mg/dL (7-18); eGFR NON AFRICAN AMERICAN 76 mL/min (90-120)
[2018-10-31 06:53] LABS: CALC OSMOLALITY 281 mosm/kg (275-300); GLUCOSE 93 mg/dL (74-106); POTASSIUM - SERUM 3.9 mmol/L (3.5-5.1)
--- NOTE | 2018-10-31 08:18 | NUR ---
ASSESSMENT PER FLOW SHEET. DISCHARGE INSTRUCTIONS,STATES UNDERSTANDING. IV DCD WITH CATH TIP INTACT.
--- NOTE | 2018-10-31 08:21 | NUR ---
REPORT TO [facility], SPOKE WITH VANESSA
[2018-10-31 08:50] VITALS: BP 142/64
--- NOTE | 2018-10-31 09:25 | NUR ---
LEFT UNIT FOR TRANSPORT TO [facility]
--- NOTE | 2018-10-31 16:03 | MORECARE ---
CASE MANAGEMENT DISCHARGE SUMMARY PATIENT: Zuhair GONZALEZ JR UNIT: [id number] ADM DATE: 10/22/18 AGE: 83 : 34 SEX: M ROOM/BED: D.2219 AUTHOR: ALYDOC PHYSICIAN: REFERRING PHYSICIAN: JAYNE HANKS MD DATE OF SERVICE: 10/31/18 Discharge Plan Patient Name: Zuhair GONZALEZ Facility: [facility]:[place] : 1935 Planned Disposition: Inpatient Rehab Facility Anticipated Discharge Date: 10/24/18 Discharge Date: 10/31/2018 Expected LOS: 2 Initial Reviewer: [email or web address] Initial Review Date: 10/22/2018 Generated: 10/31/18 5:03 pm Comments DCP- Discharge Planning Updated by [email or web address]: Adrienne Madera on 10/30/18 3:[address] Patient Name: Zuhair GONZALEZ Admission Status: ER Accout number: [id number] Admission Date: 10-22-2018 : 1935 Admission Diagnosis:CHRONIC OBSTRUCTIVE PULMONARY DISEASE W (ACUTE) EXACERB Attending: JAYNE HANKS Current LOS: 8 Anticipated DC Date: 10-24-2018 Planned Disposition: Inpatient Rehab Facility Primary Insurance: MEDICARE A & B Discharge Planning Comments: CM SPOKE WITH GARETH AT [facility] [place], STATES CAN'T ACCEPT PATIENT YET, STILL WAITING ON FINANCIALS FROM FAMILY. I CALLED SON AND HE IS GOING TO FIND OUT WHAT [facility] IS NEEDING. Final Touch Up Painter: Adrienne Madera DCP- Discharge Planning Updated by [email or web address]: Adrienne Madera on 10/29/18 11:[address] Patient Name: Zuhair GONZALEZ Admission Status: ER Accout number: [id number] Admission Date: 10-22-2018 : 1935 Admission Diagnosis:CHRONIC OBSTRUCTIVE PULMONARY DISEASE W (ACUTE) EXACERB Attending: JAYNE HANKS Current LOS: 7 Anticipated DC Date: 10-24-2018 Planned Disposition: Inpatient Rehab Facility Primary Insurance: MEDICARE A & B Discharge Planning Comments: CM FAXING REFERRAL TO [facility], THAT IS WHERE THE PATIENT SON AND PATIENT WANTS TO GO. HIS IS AT [place] [place] IN A NURSING HOME BED. CM TO FOLLOW AND ASSIST NEEDED. WILL WAIT FOR CALL BACK FROM [facility]. Final Touch Up Painter: Adrienne Madera DCP- Discharge Planning Updated by [email or web address]: Virgen Chaves on 10/22/18 12:[address] Patient Name: Zuhair GONZALEZ Admission Status: ER Accout number: [id number] Admission Date: 10-22-2018 : 1935 Admission Diagnosis: Attending: JAYNE HANKS Current LOS: 1 Anticipated DC Date: 10-24-2018 Planned Disposition: Inpatient Rehab Facility Primary Insurance: MEDICARE A & B Discharge Planning Comments: CM met with patient to complete initial dc planning assessment. CM educated patient on the CM role and verbal consent given by patient to complete assessment. CM verified patient's address, phone number, and emergency contact phone numbers. Patient lives at home alone and said he was independent in his care until today. Patient with BIPAP in use and having a difficult time answering questions. CM contacted his son who reported the patient was just discharged from home health services. He could not remember which agency his father had. He reported he had a sales representative gas service, unsure who, come to his father's house to see if he qualified for assisted living. He stated the rep for the stated said he was able to self care for himself at home. CM not sure who this rep was working for of who the rep was representing. At [place] feels his dad needs rehab. He stated his dad was at [facility] in June and he stated his dad said he would never go back to rehab. Andrea feels his dad need rehab at discharge. CM unable to discuss this information with the patient at this time. Once patient able to talk and have a conversation cm will discuss rehab options with patient to determine a safe dc plan. CM will continue to follow and will assist as needed with dc plans/needs Final Touch Up Painter: Virgen Chaves RN, [facility] DCPIA - Discharge Planning Initial Assessment Updated by [email or web address]: Virgen Chaves on 10/22/18 12:55 pm * Is the patient Alert and Oriented? Yes * PCP Dr. Cortes * Pharmacy [facility] * Preadmission Environment Home Alone * ADLs Independent * Equipment Oxygen Rolling Walker * Other Equipment [employer] is oxygen provider * List name and contact numbers for known caregivers / representatives who currently or will assist patient after discharge: Andrea or Cindy Gonzalez - son - [phone] Ed Gonzalez - rajni - [phone] * Verbal permission to speak to the caregivers and representatives has been obtained from the patient. Yes * Community resources currently utilized Other * Please name any agencies selected above. Son reported HH just dc him from services. He stated patient needs rehab but his father said he would never go back to a long term. * Additional services required to return to the preadmission environment? Yes * Can the patient safely return to the preadmission environment? No * Has this patient been hospitalized within the prior 30 days at any hospital? No Coverage Notice Reviewer: [id number] Kathi Madera Notice Issued Date-Time: 10/26/2018 12:13 Notice Type: Patient Choice Letter Notice Delivered To: Family Member Relationship to Patient: Bundle Clerk Name: Delivery Method: PHONE - Phone Maisha Days: Prior Verbal Notification: Recipient Understood Notice: Yes Recipient Signature: Med Rec Note Co-signed by Attending: Coverage Notice Comment: RAJNI GONZALEZ WANTS [facility]. Last DP export: 10/30/18 3:09 pm Patient Name: Zuhair GONZALEZ Page [id number] at 1603 All edits/amendments must be made on the electronic document DICTATION DATE: 10/31/181601 SEDIMENTATIONIST: RIO 10/31/18 160 RPT#: [id number] DC DATE:10/31/18 STATUS: DIS IN [facility] [address] [place] [address] END OF REPORT
== END 2018-10-31 09:26 | DRG 189 ==
LOC: D.ER 07:07 → D.MS 12:42
PROVIDERS: Family Medicine; Internal Medicine Nephrology; ADMIT Family Medicine; ATTEND Family Medicine
PROC: 0HQ1XZZ Repair Face Skin, External Approach (ICD-10-PCS; principal; 2018-10-22)
DX: J96.21 Acute and chronic respiratory failure with hypoxia (principal); G93.41 Metabolic encephalopathy; J44.0 Chronic obstructive pulmonary disease with (acute) lower respiratory infection; J44.1 Chronic obstructive pulmonary disease with (acute) exacerbation; F05 Delirium due to known physiological condition; S01.81XA Laceration without foreign body of other part of head, initial encounter; W19.XXXA Unspecified fall, initial encounter; S09.90XA Unspecified injury of head, initial encounter; G30.9 Alzheimer's disease, unspecified; F02.80 Dementia in other diseases classified elsewhere, unspecified severity, without behavioral disturbance, psychotic disturbance, mood disturbance, and anxiety; I25.10 Atherosclerotic heart disease of native coronary artery without angina pectoris; I10 Essential (primary) hypertension; K21.9 Gastro-esophageal reflux disease without esophagitis; I12.9 Hypertensive chronic kidney disease with stage 1 through stage 4 chronic kidney disease, or unspecified chronic kidney disease; N18.9 Chronic kidney disease, unspecified

== ENCOUNTER → 2018-11-03 22:56 | Outpatient (CLI) | payer MEDICARE, BC ==
[2018-10-23 13:11] VITALS: BMI 18.6
[~2018-11-03 22:56] MED LIST changes: +DONEPEZIL HCL5 MG PO; +K-DUR20 MEQ PO; +LEXAPRO10 MG PO; +MEGACE400 MG/10 PO; +ULTRAM50 MG PO
[2018-11-03 23:04] LABS: BASOPHILS 0 % (0-2); EOSINOPHILS 0.4 % (0-7); HEMATOCRIT 36.7 % (42.0-54.0); IMMATURE GRANULOCYTES 0.3 % (0-5); LYMPHOCYTES 13.3 % (15-50); MCH 26.6 pg (26.0-34.0); MCHC 32.7 g/dL (31.0-37.0); MCV 81.4 fL (80.0-100.0); MEAN PLATELET VOLUME 10.8 fL (7.4-10.4); MONOCYTES 9.9 % (2-11); NEUTROPHILS 76.1 % (40-80); PLATELET COUNT 495 10x3/uL (130-400); RBC 4.51 10x6/uL (4.20-6.10); RDW 16.8 % (11.5-14.5); WBC 14.7 10x3/uL (4.8-10.8)
[2018-11-03 23:20] LABS: ALBUMIN 3.2 g/dL (3.4-5.0); ANION GAP 13.8 mmol/L (8-16); BILIRUBIN - TOTAL 0.23 mg/dL (0.2-1.3); CALCIUM 9.2 mg/dL (8.5-10.1); CARBON DIOXIDE 27.5 mmol/L (21.0-32.0); CREATININE - SERUM 1.5 mg/dL (0.6-1.3); POTASSIUM - SERUM 4.3 mmol/L (3.5-5.1); PROTEIN - SERUM 6.4 g/dL (6.4-8.2)
== END | disposition home or self-care (01) ==
LOC: D.LABREF 22:56
PROVIDERS: ATTEND Family Medicine
DX: D72.829 Elevated white blood cell count, unspecified (principal)